=== PATIENT | female | born 1985 | race Caucasian/White ===

== ENCOUNTER 2017-05-11 06:56 | Emergency (ER) | payer MEDICAID ==
[2017-05-11 07:08] VITALS: BP 147/76
[2017-05-11] MEDS ORDERED: Sodium Chloride 0.9% 1,000 ML IV STA (07:21)
[2017-05-11] MEDS ORDERED: HYDROmorphone 1 MG/ML Syringe IVPUSH ONE (07:21)
[2017-05-11] MEDS ORDERED: Ondansetron 4 MG/2 ML SDV IVPUSH ONE (07:21)
--- NOTE | 2017-05-11 07:27 | EDM.PDOC ---
ED HPI GENERAL MEDICAL PROBLEM - General Chief Complaint: Abdominal Pain Stated Complaint: STOMACH PAIN IN THE MIDDLE Time Seen by Provider: 05/11/17 07:16 Source of Information: Reports: Patient, RN Notes Reviewed History Limitations: Reports: No Limitations - History of Present Illness INITIAL COMMENTS - FREE TEXT/NARRATIVE: 31-year-old female presents emergency department day complaint of abdominal pain , she states she had counted generalized abdominal pain yesterday now the pain has migrated down to the right lower quadrant she is nauseated she has not vomited she does eat chills at times does have burning with urination pain is constant. Past surgical history of and hernia repair Lower Abdomen Pain Score (Numeric/FACES): 10 - Related Data Allergies Allergy/AdvReac Type Severity Reaction Status Date / Time naproxen Allergy Intermediate Hives Verified 11/03/16 14:26 coconut oil Allergy Other Verified 11/03/16 14:26 Latex, Natural Rubber Allergy Hives Verified 11/03/16 14:26 tramadol Allergy Hives Verified 11/03/16 14:26 Home Meds: Home Meds Albuterol Sulfate [Proair Hfa] 2 puff INH Q4H PRN 03/11/14 [History] Acetaminophen [Tylenol] 2 tab PO Q4H 07/19/15 [History] Acetaminophen/Diphenhydramine [Tylenol Pm Ex-Strength Caplet] 1 each PO BEDTIME PRN 12/31/15 [History] Ibuprofen 400 mg PO Q4H PRN 07/15/16 [History] diphenhydrAMINE [Benadryl] 25 mg PO BEDTIME PRN 07/15/16 [History] Past Medical History HEENT History: Reports: Allergic Rhinitis, Impaired Vision Other HEENT History: tubes in ears as young child. 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: Reports: , Other (See Below) Other OB/BYN History: IUD Neurological History: Reports: Headaches, Chronic, Migraines Psychiatric History: Reports: Anxiety, Depression, Panic Attack Endocrine/Metabolic History: Reports: Obesity/BMI 30+ Dermatologic History: Reports: Other (See Below) Other Dermatologic History: hydrotendonitis - Infectious Disease History Infectious Disease History: Reports: Chicken Pox - Past Surgical History HEENT Surgical History: Reports: Myringotomy w Tube(s) GI Surgical History: Reports: Hernia Repair/Other Female Surgical History: Reports: Section Social & Family History - Family History Family Medical History: Noncontributory Cardiac: Reports: Hypertension Respiratory: Reports: Asthma Psychiatric: Reports: Anxiety, Depression Endocrine/Metabolic: Reports: Diabetes, Type I Oncologic: Reports: Breast, Liver - Tobacco Use Smoking Status *Q: Current Every Day Smoker Years of Tobacco use: 1 Packs/Tins Daily: 0.5 Used Tobacco, but Quit: Yes Month Tobacco Last Used: December Second Hand Smoke Exposure: No - Caffeine Use Caffeine Use: Reports: Soda, Tea - Alcohol Use Days Per Week of Alcohol Use: 0 - Recreational Drug Use Recreational Drug Use: No Drug Use in Last 12 Months: Yes Recreational Drug Type: Reports: Marijuana/Hashish Recreational Drug Use Frequency: Binges Recreational Drug Last Use: t-2 ED ROS GENERAL - Review of Systems Review Of Systems: See Below Constitutional: Reports: Chills. Denies: Fever HEENT: Reports: No Symptoms Respiratory: Reports: Shortness of Breath (With pain) Cardiovascular: Reports: No Symptoms GI/Abdominal: Reports: Abdominal Pain, Flatus, Nausea. Denies: Constipation, Diarrhea, Vomiting : Reports: Dysuria Musculoskeletal: Reports: No Symptoms Skin: Reports: No Symptoms Neurological: Reports: No Symptoms ED EXAM, GI/ABD - Physical Exam Exam: See Below Text/Narrative:: General: Female, in moderate discomfort secondary to pain, alert and oriented x3 HEENT: head is atraumatic normocephalic, eyes pupils equal round reactive to light, sclera clear no conjunctivitis appreciated. Ears tympanic membranes clear and patel landmarks and light reflex are present bilaterally canals are clear. Nose no septal deviation, nares are clear, no blood present. Mouth mucosa is moist and pink no erythema or exudate noted in soft palate, tongue is midline uvula is midline, dentition is intact. Neck: Supple no thyromegaly no tracheal deviation. Nodes: Cervical nodes subclavicular nodes nontender no palpable lymphadenopathy noted. Lungs: clear to auscultation bilaterally with symmetrical respirations, no adventitious noise appreciated. CV: Regular rate and rhythm S1 and S2 appreciated no murmurs rubs or gallops noted. Abdomen: Soft, obese, tender to palpation right lower quadrant, no palpable masses or organomegaly appreciated, no distention no guarding bowel sounds are present, psoas sign, obturator sign, heeltap sign all positive. Neuro: Cranial nerves II through XII grossly intact Skin: Warm and dry, intact Extremities: No lower extremity edema appreciated, pedal pulse is +2. Course - Vital Signs Last Recorded V/S: Last Vital Signs Temp 97.9 F 05/11/17 07:07 Pulse 69 05/11/17 07:07 Resp 16 05/11/17 07:07 BP 147/76 H 05/11/17 07:07 Pulse Ox 96 05/11/17 07:07 - Orders/Labs/Meds Orders: Active Orders 24 hr Category Date Time Status Peripheral IV Care [RC] . DIRECTED Care 05/11/17 07:23 Active Abdomen Pelvis w Cont [CT] Urgent Exams 05/11/17 07:21 Taken Iopamidol [Isovue-300 (61%)] Med 05/11/17 07:35 Active 150 ml IV . DIRECTED PRN Sodium Chloride 0.9% [Normal Saline] 100 ml Med 05/11/17 07:45 Active IV ASDIRECTED Sodium Chloride 0.9% [Saline Flush] Med 05/11/17 07:21 Active 10 ml FLUSH ASDIRECTED PRN ED Antiemetic Medication Reflex [OM.PC] Click to Edit Oth 05/11/17 07:21 Ordered ED Pain Medications Reflex [OM.PC] Click to Edit Oth 05/11/17 07:21 Ordered Peripheral IV Insertion Adult [OM.PC] Urgent Oth 05/11/17 07:21 Ordered Medication Orders Sodium Chloride (Normal Saline) 100 mls @ 3.5 mls/sec IV ASDIRECTED CHITRA Stop: 05/11/17 23:00 Last Admin: 05/11/17 08:01 Dose: 3.5 mls/sec Iopamidol (Isovue-300 (61%)) 150 ml IV . DIRECTED PRN PRN Reason: RADIOLOGY EXAM Stop: 05/12/17 07:36 Last Admin: 05/11/17 08:01 Dose: 150 ml Sodium Chloride (Saline Flush) 10 ml FLUSH ASDIRECTED PRN PRN Reason: Keep Vein Open Last Admin: 05/11/17 08:01 Dose: 10 ml Admin: 05/11/17 07:37 Dose: 10 ml Labs: Laboratory Tests 05/11/17 05/11/17 05/11/17 Range/Units 07:19 07:29 07:29 WBC 9.9 (4.5-11.0) K/uL RBC 4.51 (3.30-5.50) M/uL Hgb 14.0 (12.0-15.0) g/dL Hct 41.9 (36.0-48.0) % MCV 93 (80-98) fL MCH 31 (27-31) pg MCHC 33 (32-36) % Plt Count 247 (150-400) K/uL Neut % (Auto) 61 (36-66) % Lymph % (Auto) 28 (24-44) % [place] % (Auto) 9 H (2-6) % Eos % (Auto) 2 (2-4) % Baso % (Auto) 1 (0-1) % Sodium 138 L (140-148) mmol/L Potassium 4.2 (3.6-5.2) mmol/L Chloride 103 (100-108) mmol/L Carbon Dioxide 28 (21-32) mmol/L Anion Gap 11.2 (5.0-14.0) mmol/L BUN 9 (7-18) mg/dL Creatinine 0.8 (0.6-1.0) mg/dL Est Cr Clr Drug Dosing 99.73 mL/min Estimated GFR (MDRD) > 60 (>60) Glucose 101 (74-106) mg/dL Lactic Acid (0.4-2.0) mmol/L Calcium 8.8 (8.5-10.1) mg/dL Total Bilirubin 0.2 (0.2-1.0) mg/dL AST 17 (15-37) U/L ALT 26 (12-78) U/L Alkaline Phosphatase 44 L (46-116) U/L Total Protein 6.9 (6.4-8.2) g/dL Albumin 3.5 (3.4-5.0) g/dL Globulin 3.4 (2.3-3.5) g/dL Albumin/Globulin Ratio 1.0 L (1.2-2.2) Lipase 125 (73-393) U/L Urine Color Yellow Urine Appearance Cloudy Urine pH 5.0 (4.5-8.0) Ur Specific [place] 1.020 (1.008-1.030) Urine Protein Negative (NEGATIVE) mg/dL Urine Glucose (UA) Normal (NEGATIVE) mg/dL Urine Ketones Negative (NEGATIVE) mg/dL Urine Occult Blood Negative (NEGATIVE) Urine Nitrite Negative (NEGATIVE) Urine Bilirubin Negative (NEGATIVE) Urine Urobilinogen Normal (NORMAL) mg/dL Ur Leukocyte Esterase Negative (NEGATIVE) Urine RBC Not seen (0-5) Urine WBC 0-5 (0-5) Ur Epithelial Cells Many Amorphous Sediment Moderate Urine Bacteria Many Urine Mucus Many Urine Other See note Urine HCG, Qual 05/11/17 05/11/17 Range/Units 07:29 07:40 WBC (4.5-11.0) K/uL RBC (3.30-5.50) M/uL Hgb (12.0-15.0) g/dL Hct (36.0-48.0) % MCV (80-98) fL MCH (27-31) pg MCHC (32-36) % Plt Count (150-400) K/uL Neut % (Auto) (36-66) % Lymph % (Auto) (24-44) % [place] % (Auto) (2-6) % Eos % (Auto) (2-4) % Baso % (Auto) (0-1) % Sodium (140-148) mmol/L Potassium (3.6-5.2) mmol/L Chloride (100-108) mmol/L Carbon Dioxide (21-32) mmol/L Anion Gap (5.0-14.0) mmol/L BUN (7-18) mg/dL Creatinine (0.6-1.0) mg/dL Est Cr Clr Drug Dosing mL/min Estimated GFR (MDRD) (>60) Glucose (74-106) mg/dL Lactic Acid 1.0 (0.4-2.0) mmol/L Calcium (8.5-10.1) mg/dL Total Bilirubin (0.2-1.0) mg/dL AST (15-37) U/L ALT (12-78) U/L Alkaline Phosphatase (46-116) U/L Total Protein (6.4-8.2) g/dL Albumin (3.4-5.0) g/dL Globulin (2.3-3.5) g/dL Albumin/Globulin Ratio (1.2-2.2) Lipase (73-393) U/L Urine Color Urine Appearance Urine pH (4.5-8.0) Ur Specific [place] (1.008-1.030) Urine Protein (NEGATIVE) mg/dL Urine Glucose (UA) (NEGATIVE) mg/dL Urine Ketones (NEGATIVE) mg/dL Urine Occult Blood (NEGATIVE) Urine Nitrite (NEGATIVE) Urine Bilirubin (NEGATIVE) Urine Urobilinogen (NORMAL) mg/dL Ur Leukocyte Esterase (NEGATIVE) Urine RBC (0-5) Urine WBC (0-5) Ur Epithelial Cells Amorphous Sediment Urine Bacteria Urine Mucus Urine Other Urine HCG, Qual Negative Meds: Medications Generic Name Dose Route Start Last Admin Trade Name [place] PRN Reason Stop Dose Admin Sodium Chloride 100 mls @ 3.5 mls/sec 05/11/17 07:45 05/11/17 08:01 Normal Saline IV 05/11/17 23:00 3.5 mls/sec ASDIRECTED CHITRA Administration Iopamidol 150 ml 05/11/17 07:35 05/11/17 08:01 Isovue-300 (61%) IV 05/12/17 07:36 150 ml . DIRECTED PRN Administration RADIOLOGY EXAM Sodium Chloride 10 ml 05/11/17 07:21 05/11/17 08:01 Saline Flush FLUSH 10 ml ASDIRECTED PRN Administration Keep Vein Open Discontinued Medications Generic Name Dose Route Start Last Admin Trade Name Margret PRN Reason Stop Dose Admin Hydromorphone HCl 1 mg 05/11/17 07:21 05/11/17 07:38 Dilaudid IVPUSH 05/11/17 07:22 1 mg .ONETIME ONE Administration Sodium Chloride 1,000 mls @ 500 mls/hr 05/11/17 07:21 05/11/17 07:38 Normal Saline IV 05/11/17 09:20 500 mls/hr .BOLUS STA Administration Ondansetron HCl 4 mg 05/11/17 07:21 05/11/17 07:39 Zofran IVPUSH 05/11/17 07:22 4 mg ONETIME ONE Administration Sodium Chloride 10 ml 05/11/17 07:35 05/11/17 08:12 Normal Saline FLUSH 05/11/17 07:36 Not Given ONETIME ONE Departure - Departure Time of Disposition: 09:29 Disposition: Home, Self-Care 01 Condition: Good Clinical Impression: Abdominal pain Qualifiers: Abdominal location: right lower quadrant Qualified Code(s): R10.31 - Right lower quadrant pain - Discharge Information Forms: ED Department Discharge Additional Instructions: Use ibuprofen for baseline pain control, use hydrocodone for breakthrough pain, use Zofran as needed for nausea and vomiting symptoms. Please followup with your primary care provider in 2-3 days if not better, please call return to the emergency department with worsening of symptoms. - My Orders Last 24 Hours: My Active Orders 05/11/17 07:21 Abdomen Pelvis w Cont [CT] Urgent Sodium Chloride 0.9% [Saline Flush] 10 ml FLUSH ASDIRECTED PRN ED Antiemetic Medication Reflex [OM.PC] Click to Edit ED Pain Medications Reflex [OM.PC] Click to Edit Peripheral IV Insertion Adult [OM.PC] Urgent 05/11/17 07:23 Peripheral IV Care [RC] . DIRECTED 05/11/17 07:35 Iopamidol [Isovue-300 (61%)] 150 ml IV . DIRECTED PRN 05/11/17 07:45 Sodium Chloride 0.9% [Normal Saline] 100 ml IV ASDIRECTED - Assessment/Plan Last 24 Hours: My Active Orders 05/11/17 07:21 Abdomen Pelvis w Cont [CT] Urgent Sodium Chloride 0.9% [Saline Flush] 10 ml FLUSH ASDIRECTED PRN ED Antiemetic Medication Reflex [OM.PC] Click to Edit ED Pain Medications Reflex [OM.PC] Click to Edit Peripheral IV Insertion Adult [OM.PC] Urgent 05/11/17 07:23 Peripheral IV Care [RC] . DIRECTED 05/11/17 07:35 Iopamidol [Isovue-300 (61%)] 150 ml IV . DIRECTED PRN 05/11/17 07:45 Sodium Chloride 0.9% [Normal Saline] 100 ml IV ASDIRECTED Plan: Assessment Acuity = acute Site and laterality = abdominal pain right lower quadrant Etiology = unclear etiology Manifestations = nausea Location of injury = home Lab values = CBC within normal limits sodium low at 138.6 consistent with hyponatremia, urinalysis unremarkable CT scan shows no acute abnormalities of the abdomen or pelvis identified Plan I did review lab work CT scan results with her she had excellent relief from the Dilaudid and Zofran provided should be discharged home with for hydrocodone and Zofran plan is to follow-up with primary care in the next 2-3 days for reevaluation Patient was in agreement with the plan all questions were answered, they were instructed to return to the emergency department or call for worsening symptoms. This note was dictated using [employer] voice recognition software please call with any questions.
[2017-05-11] MEDS ORDERED: Iopamidol 612 MG/ML 150 ML Bottle IV PRN (07:35)
[2017-05-11] MEDS ORDERED: Sodium Chloride 0.9% 10 ML SDV FLUSH ONE (07:35)
[2017-05-11] MEDS: Sodium Chloride 0.9% 10 ML Syringe FLUSH PRN ×2 (07:37→08:01)
[2017-05-11] MEDS ORDERED: Sodium Chloride 0.9% 100 ML IV SCH (07:45)
== END 2017-05-11 09:38 | disposition home or self-care (01) ==
LOC: JP.ED 06:56
DX: R10.31 Right lower quadrant pain (principal); F17.210 Nicotine dependence, cigarettes, uncomplicated; J45.909 Unspecified asthma, uncomplicated; E66.9 Obesity, unspecified; Z96.22 Myringotomy tube(s) status; Z91.040 Latex allergy status; Z88.8 Allergy status to other drugs, medicaments and biological substances; Z91.018 Allergy to other foods; Z88.5 Allergy status to narcotic agent
CPT/HCPCS: 36415; 74177; 80053; 81001; 81025; 83605; 83690; 85025; 99284; J1170; J2405; J7030; J7040; J7050

== ENCOUNTER 2017-06-25 22:18 | Emergency (ER) | payer MEDICAID ==
[2017-06-26] MEDS ORDERED: Sodium Chloride 0.9% 10 ML Syringe FLUSH PRN ×2 (00:23→00:52)
[2017-06-26] MEDS ORDERED: Iopamidol 612 MG/ML 150 ML Bottle IV PRN (00:52)
[2017-06-26] MEDS ORDERED: Magnesium Citrate Solution 296 ML Bottle PO ONE (02:10)
--- NOTE | 2017-06-26 02:14 | EDM.PDOC ---
ED HPI GENERAL MEDICAL PROBLEM - General Chief Complaint: Abdominal Pain Stated Complaint: R SIDE ABDOMINAL PAIN Time Seen by Provider: 06/26/17 00:13 Source of Information: Reports: Patient History Limitations: Reports: No Limitations - History of Present Illness INITIAL COMMENTS - FREE TEXT/NARRATIVE: This patient complains of a sharp right sided and right lower quadrant abdominal pain for 2 days. Pain is increased with movement such as walking or laying on her right side. It goes away if she lays on her left side. She's had diarrhea off and on for 2 days as well as vomiting for 2 days. She denies any fever. No chance of . Right Lower Abdomen Pain Score (Numeric/FACES): 10 - Related Data Allergies Allergy/AdvReac Type Severity Reaction Status Date / Time naproxen Allergy Intermediate Hives Verified 11/03/16 14:26 coconut oil Allergy Other Verified 11/03/16 14:26 Latex, Natural Rubber Allergy Hives Verified 11/03/16 14:26 tramadol Allergy Hives Verified 11/03/16 14:26 Home Meds: Home Meds Albuterol Sulfate [Proair Hfa] 2 puff INH Q4H PRN 03/11/14 [History] Acetaminophen [Tylenol] 2 tab PO Q4H 07/19/15 [History] Acetaminophen/Diphenhydramine [Tylenol Pm Ex-Strength Caplet] 1 each PO BEDTIME PRN 12/31/15 [History] Ibuprofen 400 mg PO Q4H PRN 07/15/16 [History] diphenhydrAMINE [Benadryl] 25 mg PO BEDTIME PRN 07/15/16 [History] Past Medical History HEENT History: Reports: Allergic Rhinitis, Impaired Vision Other HEENT History: tubes in ears as young child. 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: , Other (See Below) Other OB/BYN History: IUD Neurological History: Reports: Headaches, Chronic, Migraines Psychiatric History: Reports: Anxiety, Depression, Panic Attack Endocrine/Metabolic History: Reports: Obesity/BMI 30+ Dermatologic History: Reports: Other (See Below) Other Dermatologic History: hydrotendonitis - Infectious Disease History Infectious Disease History: Reports: Chicken Pox - Past Surgical History HEENT Surgical History: Reports: Myringotomy w Tube(s) GI Surgical History: Reports: Hernia Repair/Other Female Surgical History: Reports: Section Social & Family History - Family History Family Medical History: Noncontributory Cardiac: Reports: Hypertension Respiratory: Reports: Asthma Psychiatric: Reports: Anxiety, Depression Endocrine/Metabolic: Reports: Diabetes, Type I Oncologic: Reports: Breast, Liver - Tobacco Use Smoking Status *Q: Current Some Day Smoker Years of Tobacco use: 12 Packs/Tins Daily: 0.5 Used Tobacco, but Quit: Yes Month Tobacco Last Used: December Second Hand Smoke Exposure: No - Caffeine Use Caffeine Use: Reports: Soda - Alcohol Use Days Per Week of Alcohol Use: 0 - Recreational Drug Use Recreational Drug Use: No Drug Use in Last 12 Months: Yes Recreational Drug Type: Reports: Marijuana/Hashish Recreational Drug Use Frequency: Binges Recreational Drug Last Use: t-2 ED ROS GENERAL - Review of Systems Review Of Systems: ROS reveals no pertinent complaints other than HPI. ED EXAM, GI/ABD - Physical Exam Exam: See Below Exam Limited By: No Limitations General Appearance: Alert, Mild Distress, Obese Eyes: Bilateral: Normal Appearance Throat/Mouth: Normal Inspection Head: Atraumatic Neck: Normal Inspection Respiratory/Chest: Lungs Clear Cardiovascular: Regular Rate, Rhythm GI/Abdominal Exam: Soft, Other (exam is limited by obesity. Some vague suggestion of a stool mass on the right side) Back Exam: Normal Inspection Extremities: Normal Inspection Neurological: Alert, Oriented Skin Exam: Warm, Dry Course - Vital Signs Last Recorded V/S: Last Vital Signs Temp 36.4 C 06/25/17 23:10 Pulse 78 06/25/17 23:10 Resp 20 06/25/17 23:10 BP 147/80 H 06/26/17 01:30 Pulse Ox 100 06/25/17 23:10 - Orders/Labs/Meds Orders: Active Orders 24 hr Category Date Time Status Abdomen Pelvis w Cont [CT] Stat Exams 06/26/17 00:23 Taken Saline Lock Insert [OM.PC] Urgent Oth 06/26/17 00:22 Ordered Labs: Laboratory Tests 06/26/17 06/26/17 06/26/17 Range/Units 00:30 00:30 00:30 WBC 8.4 (4.5-11.0) K/uL RBC 4.03 (3.30-5.50) M/uL Hgb 12.8 (12.0-15.0) g/dL Hct 37.7 (36.0-48.0) % MCV 94 (80-98) fL MCH 32 H (27-31) pg MCHC 34 (32-36) % Plt Count 240 (150-400) K/uL Neut % (Auto) 63 (36-66) % Lymph % (Auto) 28 (24-44) % [place] % (Auto) 8 H (2-6) % Eos % (Auto) 2 (2-4) % Baso % (Auto) 0 (0-1) % Sodium 142 (140-148) mmol/L Potassium 3.7 (3.6-5.2) mmol/L Chloride 107 (100-108) mmol/L Carbon Dioxide 29 (21-32) mmol/L Anion Gap 5.6 (5.0-14.0) mmol/L BUN 9 (7-18) mg/dL Creatinine 0.9 (0.6-1.0) mg/dL Est Cr Clr Drug Dosing 84.79 mL/min Estimated GFR (MDRD) > 60 (>60) Glucose 106 (74-106) mg/dL Calcium 8.1 L (8.5-10.1) mg/dL Total Bilirubin 0.2 (0.2-1.0) mg/dL AST 24 (15-37) U/L ALT 44 (12-78) U/L Alkaline Phosphatase 46 (46-116) U/L Total Protein 7.1 (6.4-8.2) g/dL Albumin 3.3 L (3.4-5.0) g/dL Globulin 3.8 H (2.3-3.5) g/dL Albumin/Globulin Ratio 0.9 L (1.2-2.2) Urine Color Urine Appearance Urine pH (4.5-8.0) Ur Specific [place] (1.008-1.030) Urine Protein (NEGATIVE) mg/dL Urine Glucose (UA) (NEGATIVE) mg/dL Urine Ketones (NEGATIVE) mg/dL Urine Occult Blood (NEGATIVE) Urine Nitrite (NEGATIVE) Urine Bilirubin (NEGATIVE) Urine Urobilinogen (NORMAL) mg/dL Ur Leukocyte Esterase (NEGATIVE) Urine RBC (0-5) Urine WBC (0-5) Ur Epithelial Cells Amorphous Sediment Urine Bacteria Urine Mucus Urine HCG, Qual Negative 06/26/17 Range/Units 00:30 WBC (4.5-11.0) K/uL RBC (3.30-5.50) M/uL Hgb (12.0-15.0) g/dL Hct (36.0-48.0) % MCV (80-98) fL MCH (27-31) pg MCHC (32-36) % Plt Count (150-400) K/uL Neut % (Auto) (36-66) % Lymph % (Auto) (24-44) % [place] % (Auto) (2-6) % Eos % (Auto) (2-4) % Baso % (Auto) (0-1) % Sodium (140-148) mmol/L Potassium (3.6-5.2) mmol/L Chloride (100-108) mmol/L Carbon Dioxide (21-32) mmol/L Anion Gap (5.0-14.0) mmol/L BUN (7-18) mg/dL Creatinine (0.6-1.0) mg/dL Est Cr Clr Drug Dosing mL/min Estimated GFR (MDRD) (>60) Glucose (74-106) mg/dL Calcium (8.5-10.1) mg/dL Total Bilirubin (0.2-1.0) mg/dL AST (15-37) U/L ALT (12-78) U/L Alkaline Phosphatase (46-116) U/L Total Protein (6.4-8.2) g/dL Albumin (3.4-5.0) g/dL Globulin (2.3-3.5) g/dL Albumin/Globulin Ratio (1.2-2.2) Urine Color Yellow Urine Appearance Clear Urine pH 6.0 (4.5-8.0) Ur Specific [place] 1.015 (1.008-1.030) Urine Protein Negative (NEGATIVE) mg/dL Urine Glucose (UA) Normal (NEGATIVE) mg/dL Urine Ketones Negative (NEGATIVE) mg/dL Urine Occult Blood Negative (NEGATIVE) Urine Nitrite Negative (NEGATIVE) Urine Bilirubin Negative (NEGATIVE) Urine Urobilinogen Normal (NORMAL) mg/dL Ur Leukocyte Esterase Negative (NEGATIVE) Urine RBC 0-5 (0-5) Urine WBC 0-5 (0-5) Ur Epithelial Cells Few Amorphous Sediment Not seen Urine Bacteria Not seen Urine Mucus Not seen Urine HCG, Qual Meds: Medications Discontinued Medications Generic Name Dose Route Start Last Admin Trade Name Margret PRN Reason Stop Dose Admin Sodium Chloride 85 mls @ 3.5 mls/sec 06/26/17 01:00 Normal Saline IV ASDIRECTED CHITRA Iopamidol 150 ml 06/26/17 00:52 06/26/17 01:11 Isovue-300 (61%) IV 06/27/17 00:53 150 ml . DIRECTED PRN Administration RADIOLOGY EXAM Magnesium Citrate 296 ml 06/26/17 02:10 06/26/17 02:24 Citrate Of Magnesia PO 06/26/17 02:11 296 ml ONETIME ONE Administration Sodium Chloride 10 ml 06/26/17 00:23 06/26/17 00:54 Saline Flush FLUSH 10 ml ASDIRECTED PRN Administration Keep Vein Open Sodium Chloride 10 ml 06/26/17 00:52 06/26/17 01:11 Saline Flush FLUSH 10 ml ONETIME PRN Administration per radiology protocol - Re-Assessments/Exams Free Text/Narrative Re-Assessment/Exam: 06/26/17 07: 07:25 Some increased stool in the ascending colon but nothing else that looks acute except a round low-density structure in the right adnexa which looks to me like an ovarian cyst. The radiologist characterized it as undefined. Patient was informed that she needs to talk with her doctor about that. I told her it's probably of ovarian cyst with the radiologist wasn't sure one way or the other so that something she needs to follow-up it's not in the written discharge instructions with that was discussed verbally with the patient. Departure - Departure Time of Disposition: 02:11 Disposition: Home, Self-Care 01 Condition: Fair Clinical Impression: Abdominal pain - Discharge Information Instructions: Constipation, Adult, [id number], Abdominal Pain, Adult, Easy-to -Read, Ovarian Cyst, [id number] Referrals: Rhoda Ellsworth CNM [Primary Care Provider] - Forms: ED Department Discharge Additional Instructions: The CT scan shows a large amount of stool in your colon on the right side. This is the beginning part of the colon where the small intestine empties into the large intestine. Frequently people get a lot of stool backed up in that area and it can cause sharp stabbing pains that is especially worse with movement and walking and so forth. This is actually a form of constipation and is seen even when the rest of the colon has been emptied by having bowel movements. This stool can be eliminated by using a laxative such as milk of magnesia or magnesium citrate which you received in the ER area after taking magnesium citrate be sure you drink several glasses of water. Typically your bowels will clear out within 12-24 hours. A high fiber diet can prevent reaccumulation of stool in the future. - My Orders Last 24 Hours: My Active Orders 06/26/17 00:22 Saline Lock Insert [OM.PC] Urgent 06/26/17 00:23 Abdomen Pelvis w Cont [CT] Stat - Assessment/Plan Last 24 Hours: My Active Orders 06/26/17 00:22 Saline Lock Insert [OM.PC] Urgent 06/26/17 00:23 Abdomen Pelvis w Cont [CT] Stat
[2017-06-26 02:17] VITALS: BP 147/80
== END 2017-06-26 02:24 | disposition home or self-care (01) ==
LOC: JP.ED 22:18
DX: R10.31 Right lower quadrant pain (principal); J45.909 Unspecified asthma, uncomplicated; F41.0 Panic disorder [episodic paroxysmal anxiety]; F32.9 Major depressive disorder, single episode, unspecified; F17.210 Nicotine dependence, cigarettes, uncomplicated; E66.9 Obesity, unspecified; Z68.39 Body mass index [BMI] 39.0-39.9, adult; Z79.899 Other long term (current) drug therapy; Z88.5 Allergy status to narcotic agent; Z88.8 Allergy status to other drugs, medicaments and biological substances; Z91.018 Allergy to other foods; Z91.040 Latex allergy status; Z96.22 Myringotomy tube(s) status; Z98.890 Other specified postprocedural states
CPT/HCPCS: 36415; 74177; 80053; 81001; 81025; 85025; 99284; A9270; J7050

== ENCOUNTER 2017-08-22 12:56 | Emergency (ER) | payer MEDICAID ==
[2017-08-22 13:11] VITALS: BP 161/86
--- NOTE | 2017-08-22 13:47 | EDM.PDOC ---
ED HPI GENERAL MEDICAL PROBLEM - General Chief Complaint: Eye Problems Stated Complaint: POSSIBLE PINK EYE BILAT Time Seen by Provider: 08/22/17 13:40 Source of Information: Reports: Patient, RN Notes Reviewed History Limitations: Reports: No Limitations - History of Present Illness INITIAL COMMENTS - FREE TEXT/NARRATIVE: 32-year-old female presents emergency department day complaint of a red eye, she was exposed to pinkeye earlier in the week with her child is predominantly in the right eye she was sent home from work and then itchiness and some blurriness no difficulty with vision no pain - Related Data Allergies Allergy/AdvReac Type Severity Reaction Status Date / Time naproxen Allergy Intermediate Hives Verified 11/03/16 14:26 coconut oil Allergy Other Verified 11/03/16 14:26 Latex, Natural Rubber Allergy Hives Verified 11/03/16 14:26 tramadol Allergy Hives Verified 11/03/16 14:26 Home Meds: Home Meds Albuterol Sulfate [Proair Hfa] 2 puff INH Q4H PRN 03/11/14 [History] Acetaminophen [Tylenol] 2 tab PO Q4H 07/19/15 [History] Acetaminophen/Diphenhydramine [Tylenol Pm Ex-Strength Caplet] 1 each PO BEDTIME PRN 12/31/15 [History] Ibuprofen 400 mg PO Q4H PRN 07/15/16 [History] diphenhydrAMINE [Benadryl] 25 mg PO BEDTIME PRN 07/15/16 [History] Past Medical History HEENT History: Reports: Allergic Rhinitis, Impaired Vision Other HEENT History: tubes in ears as young child. 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: , Other (See Below) Other OB/BYN History: IUD Neurological History: Reports: Headaches, Chronic, Migraines Psychiatric History: Reports: Anxiety, Depression, Panic Attack Endocrine/Metabolic History: Reports: Obesity/BMI 30+ Dermatologic History: Reports: Other (See Below) Other Dermatologic History: hydrotendonitis - Infectious Disease History Infectious Disease History: Reports: Chicken Pox - Past Surgical History HEENT Surgical History: Reports: Myringotomy w Tube(s) GI Surgical History: Reports: Hernia Repair/Other Female Surgical History: Reports: Section Social & Family History - Family History Family Medical History: Noncontributory Cardiac: Reports: Hypertension Respiratory: Reports: Asthma Psychiatric: Reports: Anxiety, Depression Endocrine/Metabolic: Reports: Diabetes, Type I Oncologic: Reports: Breast, Liver - Tobacco Use Smoking Status *Q: Never Smoker Years of Tobacco use: 12 Packs/Tins Daily: 0.5 Used Tobacco, but Quit: Yes Month Tobacco Last Used: December Second Hand Smoke Exposure: No - Caffeine Use Caffeine Use: Reports: None - Alcohol Use Days Per Week of Alcohol Use: 0 - Recreational Drug Use Recreational Drug Use: No Drug Use in Last 12 Months: Yes Recreational Drug Type: Reports: Marijuana/Hashish Recreational Drug Use Frequency: Binges Recreational Drug Last Use: t-2 ED ROS GENERAL - Review of Systems Review Of Systems: See Below Constitutional: Reports: No Symptoms HEENT: Reports: Eye Discharge. Denies: Eye Pain Respiratory: Reports: No Symptoms Cardiovascular: Reports: No Symptoms ED EXAM GENERAL W FULL EYE - Physical Exam Exam: See Below Exam Limited By: No Limitations General Appearance: Alert, WD/WN, No Apparent Distress Eye Exam: Right Eye: Conjunctival Injection, Left Eye: Normal Inspection Eyelids: Bilateral: Normal Appearance Conjunctiva & Sclera: Right: Injected, Left: Normal Appearance Cornea Exam: Bilateral: Normal Appearance Extraocular Movements: Bilateral: Intact Pupils: Normal Accommodation Pupillary Size: Bilateral: 5 mm Pupillary Reaction: Bilateral: Brisk Neck: Normal Inspection, Supple, Non-Tender, Full Range of Motion Course - Vital Signs Last Recorded V/S: Last Vital Signs Temp 96.6 F 08/22/17 13:10 Pulse 98 08/22/17 13:10 Resp 16 08/22/17 13:10 BP 161/86 H 08/22/17 13:10 Pulse Ox 95 08/22/17 13:10 Departure - Departure Time of Disposition: 13:46 Disposition: Home, Self-Care 01 Condition: Good Clinical Impression: Conjunctivitis Qualifiers: Conjunctivitis type: acute Acute conjunctivitis type: unspecified Laterality: right Qualified Code(s): H10.31 - Unspecified acute conjunctivitis, right eye - Discharge Information Referrals: Rhoda Ellsworth CNM [Primary Care Provider] - Additional Instructions: Take full course of antibiotics, follow up with eye care provider in 5-7 days if no improvement, call return to the emergency department for worsening of symptoms - Assessment/Plan Plan: Assessment Acuity = acute Site and laterality = right conjunctivitis Etiology = probable viral cause Manifestations = none Location of injury = Home Lab values = none Plan Prescription written for gentamicin 1-2 drops right eye until clear follow-up with eye care provider in 5-7 days if no improvement Patient was in agreement with the plan all questions were answered, they were instructed to return to the emergency department or call for worsening symptoms. This note was dictated using [employer] voice recognition software please call with any questions.
== END 2017-08-22 13:55 | disposition home or self-care (01) ==
LOC: JP.ED 12:56
DX: H10.31 Unspecified acute conjunctivitis, right eye (principal); J45.909 Unspecified asthma, uncomplicated; F41.0 Panic disorder [episodic paroxysmal anxiety]; F32.9 Major depressive disorder, single episode, unspecified; E66.9 Obesity, unspecified; Z96.22 Myringotomy tube(s) status; Z98.890 Other specified postprocedural states; Z87.891 Personal history of nicotine dependence; Z88.5 Allergy status to narcotic agent; Z88.8 Allergy status to other drugs, medicaments and biological substances; Z91.040 Latex allergy status; Z91.018 Allergy to other foods; Z68.41 Body mass index [BMI] 40.0-44.9, adult
CPT/HCPCS: 99283

== ENCOUNTER 2017-10-12 12:04 | Emergency (ER) | payer MEDICAID ==
[2017-10-12 12:20] VITALS: BP 150/94
--- NOTE | 2017-10-12 13:39 | EDM.PDOC ---
ED HPI GENERAL MEDICAL PROBLEM - General Chief Complaint: Skin Complaint Stated Complaint: BOIL, LEFT SIDE, INSIDE CREASE THIGH Time Seen by Provider: 10/12/17 13:20 Source of Information: Reports: Patient History Limitations: Reports: No Limitations - History of Present Illness INITIAL COMMENTS - FREE TEXT/NARRATIVE: 32 yo female with a pHx of a L groin boil that was drained by Dr. 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 Does not have a family doctor so came to the ER. No fever. No drainage. Has too much pain to go to work. Onset: Gradual Onset Date: 10/10/17 Duration: Day(s):, Getting Worse Location: Reports: Other (L groin) Quality: Reports: Ache Severity: Moderate Improves with: Reports: Rest Worsens with: Reports: Movement Context: Reports: Other (Previous boil to same area. ) Associated Symptoms: Reports: No Other Symptoms Treatments MACHINE CRATER: Reports: Other (see below) (none) Other Treatments MACHINE CRATER: hot packs Left Inner Groin Pain Score (Numeric/FACES): 3 - Related Data Allergies Allergy/AdvReac Type Severity Reaction Status Date / Time naproxen Allergy Intermediate Hives Verified 10/12/17 12:31 coconut oil Allergy Other Verified 10/12/17 12:31 Latex, Natural Rubber Allergy Hives Verified 10/12/17 12:31 tramadol Allergy Hives Verified 10/12/17 12:31 Home Meds: Home Meds Albuterol Sulfate [Proair Hfa] 2 puff INH Q4H PRN 03/11/14 [History] Acetaminophen [Tylenol] 2 tab PO Q4H 07/19/15 [History] Acetaminophen/Diphenhydramine [Tylenol Pm Ex-Strength Caplet] 1 each PO BEDTIME PRN 12/31/15 [History] Ibuprofen 400 mg PO Q4H PRN 07/15/16 [History] diphenhydrAMINE [Benadryl] 25 mg PO BEDTIME PRN 07/15/16 [History] Acetaminophen/HYDROcodone [[place] 325-5 MG] 1 - 2 tab PO Q6H PRN #15 tab [Rx] Cephalexin [IJD: Cephalexin] 500 mg PO Q6H #30 cap 10/12/17 [Rx] Fluticasone Propionate [Flonase] 1 spray INGRID DAILY 10/12/17 [History] Past Medical History HEENT History: Reports: Allergic Rhinitis, Impaired Vision Other HEENT History: tubes in ears as young child. 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: , Other (See Below) Other OB/BYN History: IUD Neurological History: Reports: Headaches, Chronic, Migraines Psychiatric History: Reports: Anxiety, Depression, Panic Attack Endocrine/Metabolic History: Reports: Obesity/BMI 30+ Dermatologic History: Reports: Other (See Below) Other Dermatologic History: hydrotendonitis - Infectious Disease History Infectious Disease History: Reports: Chicken Pox - Past Surgical History HEENT Surgical History: Reports: Myringotomy w Tube(s) GI Surgical History: Reports: Hernia Repair/Other Female Surgical History: Reports: Section Social & Family History - Family History Family Medical History: Noncontributory Cardiac: Reports: Hypertension Respiratory: Reports: Asthma Psychiatric: Reports: Anxiety, Depression Endocrine/Metabolic: Reports: Diabetes, Type I Oncologic: Reports: Breast, Liver - Tobacco Use Smoking Status *Q: Never Smoker Years of Tobacco use: 12 Packs/Tins Daily: 0.5 Used Tobacco, but Quit: Yes Month Tobacco Last Used: December Second Hand Smoke Exposure: No - Caffeine Use Caffeine Use: Reports: Soda - Alcohol Use Days Per Week of Alcohol Use: 0 - Recreational Drug Use Recreational Drug Use: No Drug Use in Last 12 Months: Yes Recreational Drug Type: Reports: Marijuana/Hashish Recreational Drug Use Frequency: Binges Recreational Drug Last Use: t-2 ED ROS GENERAL - Review of Systems Review Of Systems: See Below Constitutional: Reports: No Symptoms Skin: Reports: Erythema, Lumps (boil L groin) Neurological: Reports: No Symptoms ED EXAM, SKIN/RASH Exam: See Below Exam Limited By: No Limitations General Appearance: Alert, WD/WN, No Apparent Distress, Obese Neurological: Alert, Oriented, CN II-XII Intact, Normal Cognition, No Motor/ Sensory Deficits Psychiatric: Normal Affect, Normal Mood Skin: Warm, Dry, Intact, Erythema, Other (1.6 cm non-fluctuant boil in the R groin. Old surgical scar present. No drainage. ) Course - Vital Signs Last Recorded V/S: Last Vital Signs Temp 36.4 C 10/12/17 12:23 Pulse 95 10/12/17 12:23 Resp 18 10/12/17 12:23 BP 150/94 H 10/12/17 12:23 Pulse Ox 95 10/12/17 12:23 Departure - Departure Time of Disposition: 13:40 Disposition: Home, Self-Care 01 Condition: Good Clinical Impression: Boil of groin - Discharge Information Prescriptions: Acetaminophen/HYDROcodone [[place] 325-5 MG] 1 - 2 tab PO Q6H PRN #15 tab PRN Reason: Pain Cephalexin [IJD: Cephalexin] 500 mg PO Q6H #30 cap Referrals: Rhoda Ellsworth CNM [Primary Care Provider] - Forms: ED Department Discharge, ED Return to Work/School Form
== END 2017-10-12 13:59 | disposition home or self-care (01) ==
LOC: JP.ED 12:04
DX: L02.224 Furuncle of groin (principal); J45.909 Unspecified asthma, uncomplicated; Z87.891 Personal history of nicotine dependence; Z88.5 Allergy status to narcotic agent; Z88.8 Allergy status to other drugs, medicaments and biological substances; Z91.040 Latex allergy status; Z91.018 Allergy to other foods
CPT/HCPCS: 99283

== ENCOUNTER → 2017-10-15 | Day surgery (SDC) | payer MEDICAID ==
[~2017-10-15] MED LIST: Acetaminophen/HYDROcodone 325-5 MG Tab PO ONE; Bupivacaine 0.5% 50 ML MDV ONE; Dextrose 5%-Lactated Ringers 1,000 ML IV SCH; Ketoconazole 2% Crm 30 GM Tube TOP ONE; Lidocaine 1% 20 ML MDV ONE; Lidocaine 1% with EPINEPHrine 1:100,000 50 ML MDV ONE; Midazolam 1 MG/ML 2 ML SDV ONE; Propofol 200 MG/20 ML SDV ONE; cefOXitin 2 GM in Sodium Chloride 0.9% 50 ML IV ONE; fentaNYL 100 MCG/2 ML SDV ONE
[2017-10-15 14:43] VITALS: BP 134/91
--- NOTE | 2017-10-19 11:23 | OR ---
DATE OF PROCEDURE: 10/15/2017 PREOPERATIVE DIAGNOSIS: Acutely infected hidradenitis suppurativa, left perineal area. POSTOPERATIVE DIAGNOSIS: Acutely infected hidradenitis suppurativa, left perineal area. OPERATIVE PROCEDURE: Excision of area of acutely infected hidradenitis suppurativa, left perineal area ([id number]). ANESTHESIA: Local plus IV sedation. INDICATION FOR PROCEDURE: This 32-year-old presented with some recurrent hidradenitis suppurativa with a focally infected area in the left perineal area. The plan was to proceed with excision of this. This is actively infected and also is in a field of quite a bit in the way of cutaneous fungal associated inflammation. Given this, the plan will be to proceed with excision of this area without closure to allow secondary closure of the wound. Potential risks including bleeding and infection were reviewed, and the patient wishes to proceed. DETAILS OF PROCEDURE: The patient was taken to the operating room, and after IV sedation was administered, she was placed in a [id number] position. The left perineal area was then prepped and draped, and the area of concern was anesthetized with 1% lidocaine. An elliptical incision measuring around 6 cm was then made, incorporating the area of active infection. This was carried down through the skin and subcutaneous tissue with care taken to maintain a plane of dissection outside of the hidradenitis. This specimen was delivered from the field, and off the field, it was partially opened and cultures obtained. Hemostasis was then obtained with electrocautery, and at that point, no further problems were noted. The wound was packed with iodoform gauze, and the patient was taken to the recovery room in a satisfactory condition. Of note, ketoconazole cream was placed bilaterally in the area of the peroneal and groin regions for treatment of the fungal overgrowth in those locations. Ricky Beckham MD /[id number]
== END ==
LOC: JP.SDS 09:55
PROVIDERS: ATTEND Surgery
DX: L72.0 Epidermal cyst (principal); L98.411 Non-pressure chronic ulcer of buttock limited to breakdown of skin; L73.2 Hidradenitis suppurativa; J45.909 Unspecified asthma, uncomplicated; K21.9 Gastro-esophageal reflux disease without esophagitis; E66.9 Obesity, unspecified; Z88.8 Allergy status to other drugs, medicaments and biological substances; Z91.018 Allergy to other foods; Z91.040 Latex allergy status; Z68.30 Body mass index [BMI] 30.0-30.9, adult
CPT/HCPCS: 11470; 87070; 87075; 87077; 87205; 88304; A9270; J0694; J2250; J2704; J3010; J7042; J7050

== ENCOUNTER 2017-10-30 08:01 | Day surgery (SDC) | payer MEDICAID ==
[~2017-10-30 08:01] MED LIST changes: -Acetaminophen/HYDROcodone 325-5 MG Tab PO ONE; -Dextrose 5%-Lactated Ringers 1,000 ML IV SCH; -Ketoconazole 2% Crm 30 GM Tube TOP ONE; -Lidocaine 1% 20 ML MDV ONE; -Midazolam 1 MG/ML 2 ML SDV ONE; -Propofol 200 MG/20 ML SDV ONE; -cefOXitin 2 GM in Sodium Chloride 0.9% 50 ML IV ONE; -fentaNYL 100 MCG/2 ML SDV ONE
[2017-10-30] MEDS ORDERED: Meropenem 500 MG SDV ONE (08:42)
[2017-10-30] MEDS ORDERED: Dextrose 5%-Lactated Ringers 1,000 ML IV SCH (08:45)
[2017-10-30] MEDS ORDERED: Meropenem 500 MG in Sodium Chloride 0.9% 50 ML IV ONE (09:15)
[2017-10-30] MEDS: Meropenem 500 MG in Premix Bag 1 BAG IV ONE ×2 (09:31)
[2017-10-30] MEDS ORDERED: fentaNYL 100 MCG/2 ML SDV ONE (09:31)
[2017-10-30] MEDS ORDERED: Propofol 200 MG/20 ML SDV ONE (09:31)
[2017-10-30] MEDS ORDERED: Midazolam 1 MG/ML 2 ML SDV ONE (09:31)
[2017-10-30] MEDS ORDERED: Bacitracin Oint 1 GM U/D Packet ONE (09:53)
[2017-10-30 10:45] VITALS: BP 129/80
[2017-10-30] MEDS ORDERED: HYDROmorphone 1 MG/ML Syringe IVPUSH ONE (10:50)
--- NOTE | 2017-11-02 09:06 | OR ---
DATE OF PROCEDURE: 10/30/2017 PREOPERATIVE DIAGNOSIS: Hidradenitis suppurativa, right axilla. POSTOPERATIVE DIAGNOSIS: Hidradenitis suppurativa, right axilla. PROCEDURE: Excision of hidradenitis suppurativa, right axilla (14937). ANESTHESIA: Local plus IV sedation. INDICATION FOR PROCEDURE: This is a 32-year-old presenting with a focal recurrence of hidradenitis suppurativa in the right axilla. This was fairly red and inflamed, but in an area that we should be able to get enough margin to most likely close this primarily. Potential risks of the procedure including bleeding, infection, and need to open the wound were reviewed, and the patient wishes to proceed. DETAILS OF PROCEDURE: The patient was taken to the operating room, placed in a supine position. IV sedation was administered, after which the anterior axillary area on the right side was prepped and draped. The area of concern was anesthetized with 1% lidocaine mixed with Marcaine. The area of the hidradenitis measured 2.3 cm and an elliptical incision measuring 5 cm was made on the lesion, maintaining a plane of relatively noninflamed skin and subcutaneous tissue and well outside of the area of active hidradenitis per se. Upon removal of the lesion, the incision was closed with 2 layers of 4-0 Vicryl stitch deep and then a 5-0 Prolene skin stitch. The wound had been irrigated with meropenem-containing saline solution as well. The patient was taken to the recovery room in satisfactory condition. There were no evident complications. Ricky Beckham MD /[id number]
== END 2017-10-30 11:10 | disposition home or self-care (01) ==
LOC: JP.SDS 08:01
PROVIDERS: ATTEND Surgery
DX: L73.2 Hidradenitis suppurativa (principal)
CPT/HCPCS: 11450; J1170; J2185; J2250; J2704; J3010; J7042; 88304

== ENCOUNTER 2017-11-06 20:26 | Emergency (ER) | payer MEDICAID ==
[2017-11-06 20:41] VITALS: BP 153/83
--- NOTE | 2017-11-06 21:01 | EDM.PDOC ---
ED HPI GENERAL MEDICAL PROBLEM - General Chief Complaint: Wound Recheck Stated Complaint: SURGERY ON NOT DOING GOOD Time Seen by Provider: 11/06/17 20:45 Source of Information: Reports: Patient History Limitations: Reports: No Limitations - History of Present Illness INITIAL COMMENTS - FREE TEXT/NARRATIVE: 32-year-old female who had a right axillary hidradenitis procedure on the has been having some postoperative difficulties with the incision. Apparently the stitches gave way a few days ago, Steri-Strips are applied across the wound but now she was reaching into the oven tonight felt a pop in the right axillary area and the wound opened again. A neighbor had Steri-Strips and closed the wound again but she came in to have it looked at. She is complaining it's very painful. Onset: Sudden Right Armpit Pain Score (Numeric/FACES): 9 - Related Data Allergies Allergy/AdvReac Type Severity Reaction Status Date / Time naproxen Allergy Intermediate Hives Verified 11/06/17 20:41 coconut oil Allergy Other Verified 11/06/17 20:41 cyclobenzaprine Allergy Tachycardia Verified 11/06/17 20:41 [From Flexeril] Latex, Natural Rubber Allergy Hives Verified 11/06/17 20:41 tramadol Allergy Hives Verified 11/06/17 20:41 Home Meds: Home Meds Albuterol Sulfate [Proair Hfa] 2 puff INH Q4H PRN 03/11/14 [History] Ibuprofen 800 mg PO Q6H PRN 07/15/16 [History] Fluticasone Propionate [Flonase] 2 spray INGRID DAILY 10/12/17 [History] Levonorgestrel [Mirena] 1 each IY ASDIRECTED 10/14/17 [History] Loratadine 10 mg PO DAILY 10/14/17 [History] Pseudoephedrine HCl [Sudafed] 60 mg PO Q6H PRN 10/14/17 [History] Ranitidine [Zantac] 75 mg PO BID 10/14/17 [History] Sulfamethoxazole/Trimethoprim [Bactrim Ds Tablet] 1 each PO DAILY 10/28/17 [ History] Past Medical History HEENT History: Reports: Allergic Rhinitis, Impaired Vision Other HEENT History: tubes in ears as young child. 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: , Other (See Below) Other OB/BYN History: IUD Neurological History: Reports: Headaches, Chronic, Migraines Psychiatric History: Reports: Anxiety, Depression, Panic Attack Endocrine/Metabolic History: Reports: Obesity/BMI 30+ Dermatologic History: Reports: Other (See Below) Other Dermatologic History: hydradenitis left groin - Infectious Disease History Infectious Disease History: Reports: Chicken Pox, Pertussis (Whooping Cough) - Past Surgical History Head Surgeries/Procedures: Reports: None HEENT Surgical History: Reports: Myringotomy w Tube(s) Respiratory Surgical History: Reports: None GI Surgical History: Reports: Hernia Repair/Other Female Surgical History: Reports: Section Endocrine Surgical History: Reports: None Neurological Surgical History: Reports: None Dermatological Surgical History: Reports: None Social & Family History - Family History Family Medical History: Noncontributory Cardiac: Reports: Hypertension Respiratory: Reports: Asthma Psychiatric: Reports: Anxiety, Depression Endocrine/Metabolic: Reports: Diabetes, Type I Oncologic: Reports: Breast, Liver - Tobacco Use Smoking Status *Q: Unknown Ever Smoked Years of Tobacco use: 4 Packs/Tins Daily: 0.5 Used Tobacco, but Quit: Yes Month Tobacco Last Used: 08/2017 Second Hand Smoke Exposure: No - Caffeine Use Caffeine Use: Reports: Soda - Alcohol Use Days Per Week of Alcohol Use: 0 - Recreational Drug Use Recreational Drug Use: No Drug Use in Last 12 Months: No Recreational Drug Type: Reports: Marijuana/Hashish Recreational Drug Use Frequency: Binges Recreational Drug Last Use: t-2 ED ROS GENERAL - Review of Systems Review Of Systems: See Below Constitutional: Denies: Fever, Chills Respiratory: Denies: Shortness of Breath Cardiovascular: Denies: Chest Pain Skin: Reports: Other (See history of present illness) Psychiatric: Reports: Anxiety ED EXAM, SKIN/RASH Exam: See Below Exam Limited By: No Limitations General Appearance: Alert, No Apparent Distress, Anxious Respiratory/Chest: No Respiratory Distress Neurological: Alert, Oriented Skin: Warm, Dry, Other (Exam is otherwise limited to the right axillary area. There is a healing surgical incision covered by Steri-Strips, the anterior aspect of the incision does appear open about 5-7 mm. Underlying cutaneous sutures are seen. There is no drainage or redness.) Course - Vital Signs Last Recorded V/S: Last Vital Signs Temp 98.6 F 11/06/17 20:36 Pulse 84 11/06/17 20:36 Resp 19 11/06/17 20:36 BP 153/83 H 11/06/17 20:36 Pulse Ox 99 11/06/17 20:36 - Re-Assessments/Exams Free Text/Narrative Re-Assessment/Exam: 11/06/17 20:59 Patient was reassured. No further treatment is necessary tonight other than she was given 6 hydrocodone for pain control. She is going to return at 8 AM tomorrow morning to be seen by Dr. Beckham. Departure - Departure Time of Disposition: 21:10 Disposition: Home, Self-Care 01 Condition: Good Clinical Impression: Postoperative wound dehiscence Qualifiers: Encounter type: initial encounter Qualified Code(s): T81.31XA - Disruption of external operation (surgical) wound, not elsewhere classified, initial encounter - Discharge Information Instructions: Wound Care Referrals: Ricky Beckham MD [Primary Care Provider] - Forms: ED Department Discharge Care Plan Goals: Keep the wound protected and clean, return tomorrow morning at 8 AM for a recheck with Dr. Beckham. Use pain control tonight as prescribed if needed.
== END 2017-11-06 21:13 | disposition home or self-care (01) ==
LOC: JP.ED 20:26
DX: T81.31XA Disruption of external operation (surgical) wound, not elsewhere classified, initial encounter (principal); E66.9 Obesity, unspecified; Z91.040 Latex allergy status; Z88.5 Allergy status to narcotic agent; Z88.8 Allergy status to other drugs, medicaments and biological substances; J45.909 Unspecified asthma, uncomplicated; Z79.899 Other long term (current) drug therapy; Z87.891 Personal history of nicotine dependence
CPT/HCPCS: 99283

== ENCOUNTER 2018-02-04 10:36 | Emergency (ER) | payer MEDICAID ==
[2018-02-04 10:50] VITALS: BP 136/46
--- NOTE | 2018-02-04 11:25 | EDM.PDOC ---
ED HPI GENERAL MEDICAL PROBLEM - General Chief Complaint: ENT Problem Stated Complaint: TOOTH PAIN Time Seen by Provider: 02/04/18 11:19 Source of Information: Reports: Patient History Limitations: Reports: No Limitations - History of Present Illness INITIAL COMMENTS - FREE TEXT/NARRATIVE: pt arrived with dental pain in the rt lower gum line. She has pain extending back to the rt ear. Onset: Gradual, Other ( last 2-3 days. ) Duration: Day(s):, Getting Worse Location: Reports: Face Associated Symptoms: Reports: No Other Symptoms Left Tooth/Teeth Pain Score (Numeric/FACES): 10 - Related Data Allergies Allergy/AdvReac Type Severity Reaction Status Date / Time naproxen Allergy Intermediate Hives Verified 11/06/17 20:41 coconut oil Allergy Other Verified 11/06/17 20:41 cyclobenzaprine Allergy Tachycardia Verified 11/06/17 20:41 [From Flexeril] Latex, Natural Rubber Allergy Hives Verified 11/06/17 20:41 tramadol Allergy Hives Verified 11/06/17 20:41 Home Meds: Home Meds Albuterol Sulfate [Proair Hfa] 2 puff INH Q4H PRN 03/11/14 [History] Ibuprofen 800 mg PO Q6H PRN 07/15/16 [History] Fluticasone Propionate [Flonase] 2 spray INGRID DAILY 10/12/17 [History] Levonorgestrel [Mirena] 1 each IY ASDIRECTED 10/14/17 [History] Loratadine 10 mg PO DAILY 10/14/17 [History] Pseudoephedrine HCl [Sudafed] 60 mg PO Q6H PRN 10/14/17 [History] Ranitidine [Zantac] 75 mg PO ASDIRECTED PRN 10/14/17 [History] Rizatriptan [Maxalt] 10 mg PO ASDIRECTED PRN 02/04/18 [History] Past Medical History HEENT History: Reports: Allergic Rhinitis, Impaired Vision Other HEENT History: tubes in ears as young child. 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: , Other (See Below) Other OB/BYN History: IUD Neurological History: Reports: Headaches, Chronic, Migraines Psychiatric History: Reports: Anxiety, Depression, Panic Attack Endocrine/Metabolic History: Reports: Obesity/BMI 30+ Dermatologic History: Reports: Other (See Below) Other Dermatologic History: hydradenitis left groin - Infectious Disease History Infectious Disease History: Reports: Chicken Pox, Pertussis (Whooping Cough) - Past Surgical History Head Surgeries/Procedures: Reports: None HEENT Surgical History: Reports: Myringotomy w Tube(s) Respiratory Surgical History: Reports: None GI Surgical History: Reports: Hernia Repair/Other Female Surgical History: Reports: Section Endocrine Surgical History: Reports: None Neurological Surgical History: Reports: None Dermatological Surgical History: Reports: None Social & Family History - Family History Family Medical History: Noncontributory Cardiac: Reports: Hypertension Respiratory: Reports: Asthma Psychiatric: Reports: Anxiety, Depression Endocrine/Metabolic: Reports: Diabetes, Type I Oncologic: Reports: Breast, Liver - Tobacco Use Smoking Status *Q: Never Smoker Years of Tobacco use: 4 Packs/Tins Daily: 0.5 Used Tobacco, but Quit: Yes Month/Year Tobacco Last Used: 08/2017 Second Hand Smoke Exposure: No - Caffeine Use Caffeine Use: Reports: Soda, Tea - Alcohol Use Days Per Week of Alcohol Use: 0 - Recreational Drug Use Recreational Drug Use: No Drug Use in Last 12 Months: No Recreational Drug Type: Reports: Marijuana/Hashish Recreational Drug Use Frequency: Binges Recreational Drug Last Use: t-2 ED ROS ENT - Review of Systems Review Of Systems: See Below Constitutional: Reports: No Symptoms HEENT: Reports: Dental Pain, Ear Pain Respiratory: Reports: No Symptoms Cardiovascular: Reports: No Symptoms Endocrine: Reports: No Symptoms GI/Abdominal: Reports: No Symptoms : Reports: No Symptoms Musculoskeletal: Reports: No Symptoms ED EXAM, ENT - Physical Exam Exam: See Below Text/Narrative:: pt arrived with pain in the left lower gum line. The most posterior tooth is very tender. Exam Limited By: No Limitations General Appearance: Alert, Anxious, Moderate Distress Ears: Normal TMs Nose: Normal Inspection Mouth/Throat: Dental Tenderness, Other ( The most posterior left lower molar is very tender to palpate. ) Head: Atraumatic Neck: Normal Inspection Respiratory/Chest: No Respiratory Distress Cardiovascular: Regular Rate, Rhythm GI/Abdominal: Soft, Non-Tender Course - Vital Signs Last Recorded V/S: Last Vital Signs Temp 36.3 C 02/04/18 10:51 Pulse 82 02/04/18 10:51 Resp 16 02/04/18 10:51 BP 136/46 L 02/04/18 10:51 Pulse Ox 96 02/04/18 10:51 - Orders/Labs/Meds Meds: Medications Discontinued Medications Generic Name Dose Route Start Last Admin Trade Name Freq PRN Reason Stop Dose Admin Oxycodone/Acetaminophen 1 tab 02/04/18 11:22 Percocet 325-5 Mg PO 02/04/18 11:23 ONETIME ONE - Re-Assessments/Exams Free Text/Narrative Re-Assessment/Exam: 02/04/18 11:28 pt was given percocet . Departure - Departure Time of Disposition: 11:24 Disposition: Home, Self-Care 01 Condition: Fair Clinical Impression: Pain, dental - Discharge Information Referrals: Rhoda Ellsworth CNM [Primary Care Provider] - Forms: ED Department Discharge Care Plan Goals: dental appt thursday, norco 5/325 q6h prn for pain, amoxicillin 500mg tid.
[2018-02-04] MEDS: Acetaminophen/oxyCODONE 325-5 MG Tab PO ONE (11:38)
== END 2018-02-04 11:45 | disposition home or self-care (01) ==
LOC: JP.ED 10:36
DX: K08.89 Other specified disorders of teeth and supporting structures (principal); J45.909 Unspecified asthma, uncomplicated; E66.9 Obesity, unspecified; Z91.040 Latex allergy status; Z88.8 Allergy status to other drugs, medicaments and biological substances; Z91.018 Allergy to other foods; Z88.5 Allergy status to narcotic agent; Z79.899 Other long term (current) drug therapy; Z87.891 Personal history of nicotine dependence
CPT/HCPCS: 99283; A9270-GY

== ENCOUNTER 2018-04-02 19:47 | Emergency (ER) | payer MEDICAID ==
[2018-04-02 21:37] VITALS: BP 144/89
[2018-04-02] MEDS ORDERED: Ondansetron 4 MG/2 ML SDV IVPUSH ONE (21:40)
[2018-04-02] MEDS ORDERED: Sodium Chloride 0.9% 10 ML Syringe FLUSH PRN (21:40)
[2018-04-02] MEDS ORDERED: Sodium Chloride 0.9% 1,000 ML IV SCH (21:45)
--- NOTE | 2018-04-02 21:54 | EDM.PDOC ---
ED HPI GENERAL MEDICAL PROBLEM - General Chief Complaint: Headache Stated Complaint: ABD CRAMPING/3 DAYS/MIGRAINE Time Seen by Provider: 04/02/18 21:41 Source of Information: Reports: Patient History Limitations: Reports: No Limitations - History of Present Illness INITIAL COMMENTS - FREE TEXT/NARRATIVE: Amairani presents today with complaints of low abdominal/pelvic pain, abnormal vaginal bleeding and migraine for [address] for 2-3 years. Primary provider Cherelle Ellsworth. abdomen Pain Score (Numeric/FACES): 10 - Related Data Allergies Allergy/AdvReac Type Severity Reaction Status Date / Time naproxen Allergy Intermediate Hives Verified 04/02/18 23:28 coconut oil Allergy Other Verified 04/02/18 23:28 Latex, Natural Rubber Allergy Hives Verified 04/02/18 23:28 tramadol Allergy Hives Verified 04/02/18 23:28 cyclobenzaprine AdvReac Tachycardia Verified 04/02/18 23:28 [From Flexeril] Home Meds: Home Meds Albuterol Sulfate [Proair Hfa] 2 puff INH Q4H PRN 03/11/14 [History] Ibuprofen 800 mg PO Q6H PRN 07/15/16 [History] Fluticasone Propionate [Flonase] 2 spray INGRID DAILY 10/12/17 [History] Levonorgestrel [Mirena] 1 each IY ASDIRECTED 10/14/17 [History] Loratadine 10 mg PO DAILY 10/14/17 [History] Pseudoephedrine HCl [Sudafed] 60 mg PO Q6H PRN 10/14/17 [History] Ranitidine [Zantac] 75 mg PO ASDIRECTED PRN 10/14/17 [History] Rizatriptan [Maxalt] 10 mg PO ASDIRECTED PRN 02/04/18 [History] Past Medical History HEENT History: Reports: Allergic Rhinitis, Impaired Vision Other HEENT History: tubes in ears as young child. 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: , Other (See Below) Other OB/BYN History: IUD Neurological History: Reports: Headaches, Chronic, Migraines Psychiatric History: Reports: Anxiety, Depression, Panic Attack Endocrine/Metabolic History: Reports: Obesity/BMI 30+ Dermatologic History: Reports: Other (See Below) Other Dermatologic History: hydradenitis left groin - Infectious Disease History Infectious Disease History: Reports: Chicken Pox, Pertussis (Whooping Cough) - Past Surgical History Head Surgeries/Procedures: Reports: None HEENT Surgical History: Reports: Myringotomy w Tube(s) Respiratory Surgical History: Reports: None GI Surgical History: Reports: Hernia Repair/Other Female Surgical History: Reports: Section Endocrine Surgical History: Reports: None Neurological Surgical History: Reports: None Dermatological Surgical History: Reports: None Social & Family History - Family History Family Medical History: Noncontributory Cardiac: Reports: Hypertension Respiratory: Reports: Asthma Psychiatric: Reports: Anxiety, Depression Endocrine/Metabolic: Reports: Diabetes, Type I Oncologic: Reports: Breast, Liver - Caffeine Use Caffeine Use: Reports: Soda, Tea ED ROS GENERAL - Review of Systems Review Of Systems: See Below Constitutional: Reports: Fever, Chills, Malaise. Denies: Weakness, Night Sweats , Diaphoresis HEENT: Reports: No Symptoms Respiratory: Denies: Shortness of Breath, Wheezing, Cough, Sputum Cardiovascular: Denies: Chest Pain, Dyspnea on Exertion, Edema, Lightheadedness , Palpitations, PND, Syncope Endocrine: Reports: No Symptoms GI/Abdominal: Reports: Abdominal Pain, Diarrhea, Nausea, Vomiting. Denies: Bloody Stool, Constipation, Difficulty Swallowing, Distension, Hematemesis, Hematochezia : Reports: Dysuria, Flank Pain, Irregular Menses, Other (irregular vaginal bleeding with clots for 2 days off and on, followed by spotting. ). Denies: Frequency, Hematuria, Urgency, Urinary Retention Musculoskeletal: Reports: Muscle Pain, Other (chronic low back pain) Skin: Denies: Bruising, Rash, Erythema Neurological: Denies: Confusion, Dizziness, Headache, Numbness, Tingling, Weakness Psychiatric: Reports: No Symptoms Hematologic/Lymphatic: Reports: No Symptoms Immunologic: Reports: No Symptoms ED EXAM, GI/ABD - Physical Exam Exam: See Below Text/Narrative:: Amairani is an alert and oriented 32 year old female presenting to the emergency room tonight for complaints of migraine, abdominal pain, irregular vaginal bleedig with blood clots, nausea, fever and vomiting. Exam Limited By: No Limitations General Appearance: Alert, WD/WN, Moderate Distress Eyes: Bilateral: Normal Appearance, EOMI Ears: Normal External Exam, Normal Canal, Hearing Grossly Normal, Normal TMs Nose: Normal Inspection, Normal Mucosa, No Blood Throat/Mouth: Normal Inspection, Normal Lips, Normal Teeth, Normal Gums, Normal Oropharynx, Normal Voice, No Airway Compromise Head: Atraumatic, Normocephalic Neck: Normal Inspection, Supple, Non-Tender, Full Range of Motion. No: Lymphadenopathy (R), Lymphadenopathy (L) Respiratory/Chest: No Respiratory Distress, Lungs Clear, Normal Breath Sounds, No Accessory Muscle Use, Chest Non-Tender Cardiovascular: Normal Peripheral Pulses, Regular Rate, Rhythm, No Edema, No Murmur, No Rub GI/Abdominal Exam: Normal Bowel Sounds, No Organomegaly, No Distention, No Mass , Tender, Other (generalized tenderness and pain to abdomen, worse to LLQ. ). No: Guarding, Rigid, Rebound Back Exam: Normal Inspection, Full Range of Motion, CVA Tenderness (R). No: CVA Tenderness (L) Extremities: Normal Inspection, Normal Range of Motion, Non-Tender, No Pedal Edema, Normal Capillary Refill Neurological: Alert, Oriented, CN II-XII Intact, Normal Cognition, Normal Gait, No Motor/Sensory Deficits Psychiatric: Normal Affect, Normal Mood Skin Exam: Warm, Dry, Intact, Normal Color, No Rash Lymphatic: No Adenopathy Course - Vital Signs Last Recorded V/S: Last Vital Signs Temp 36.9 C 04/02/18 21:50 Pulse 68 04/02/18 21:50 Resp 16 04/02/18 21:50 BP 144/89 H 04/02/18 21:50 Pulse Ox 99 04/02/18 21:50 - Orders/Labs/Meds Orders: Active Orders 24 hr Category Date Time Status Pelvis Non OB Comp [US] Stat Exams 04/02/18 21:38 Taken HCG QUALITATIVE,URINE [URCHEM] Stat Lab 04/02/18 22:41 Ordered UA W/MICROSCOPIC [URIN] Stat Lab 04/02/18 22:41 Ordered Sodium Chloride 0.9% [Normal Saline] 1,000 ml Med 04/02/18 21:45 Active IV ASDIRECTED Sodium Chloride 0.9% [Saline Flush] Med 04/02/18 21:40 Active 10 ml FLUSH ASDIRECTED PRN Saline Lock Insert [OM.PC] Routine Oth 04/02/18 21:40 Ordered Medication Orders Sodium Chloride (Normal Saline) 1,000 mls @ 1,000 mls/hr IV ASDIRECTED CHITRA Last Admin: 04/02/18 22:10 Dose: 1,000 mls/hr Sodium Chloride (Saline Flush) 10 ml FLUSH ASDIRECTED PRN PRN Reason: Keep Vein Open Last Admin: 04/02/18 22:10 Dose: 10 ml Labs: Laboratory Tests 04/02/18 04/02/18 04/02/18 Range/Units 21:52 21:52 22:41 WBC 7.6 (4.5-11.0) K/uL RBC 4.38 (3.30-5.50) M/uL Hgb 13.2 (12.0-15.0) g/dL Hct 39.9 (36.0-48.0) % MCV 91 (80-98) fL MCH 30 (27-31) pg MCHC 33 (32-36) % Plt Count 264 (150-400) K/uL Neut % (Auto) 50 (36-66) % Lymph % (Auto) 36 (24-44) % Alpine % (Auto) 9 H (2-6) % Eos % (Auto) 4 (2-4) % Baso % (Auto) 0 (0-1) % Sodium 140 (140-148) mmol/L Potassium 3.8 (3.6-5.2) mmol/L Chloride 104 (100-108) mmol/L Carbon Dioxide 28 (21-32) mmol/L Anion Gap 7.6 (5.0-14.0) mmol/L BUN 11 (7-18) mg/dL Creatinine 0.8 (0.6-1.0) mg/dL Est Cr Clr Drug Dosing 84.29 mL/min Estimated GFR (MDRD) > 60 (>60) Glucose 101 (74-106) mg/dL Calcium 8.8 (8.5-10.1) mg/dL Total Bilirubin 0.2 (0.2-1.0) mg/dL AST 15 (15-37) U/L ALT 30 (12-78) U/L Alkaline Phosphatase 47 (46-116) U/L Total Protein 7.0 (6.4-8.2) g/dL Albumin 3.5 (3.4-5.0) g/dL Globulin 3.5 (2.3-3.5) g/dL Albumin/Globulin Ratio 1.0 L (1.2-2.2) Urine Color Yellow Urine Appearance Clear Urine pH 7.0 (4.5-8.0) Ur Specific [place] 1.015 (1.008-1.030) Urine Protein Negative (NEGATIVE) mg/dL Urine Glucose (UA) Normal (NEGATIVE) mg/dL Urine Ketones Negative (NEGATIVE) mg/dL Urine Occult Blood Negative (NEGATIVE) Urine Nitrite Negative (NEGATIVE) Urine Bilirubin Negative (NEGATIVE) Urine Urobilinogen Normal (NORMAL) mg/dL Ur Leukocyte Esterase Negative (NEGATIVE) Urine RBC 0-5 (0-5) Urine WBC 0-5 (0-5) Ur Epithelial Cells Few Amorphous Sediment Few Urine Bacteria Few Urine Mucus Not seen Urine HCG, Qual 04/02/18 Range/Units 22:41 WBC (4.5-11.0) K/uL RBC (3.30-5.50) M/uL Hgb (12.0-15.0) g/dL Hct (36.0-48.0) % MCV (80-98) fL MCH (27-31) pg MCHC (32-36) % Plt Count (150-400) K/uL Neut % (Auto) (36-66) % Lymph % (Auto) (24-44) % Alpine % (Auto) (2-6) % Eos % (Auto) (2-4) % Baso % (Auto) (0-1) % Sodium (140-148) mmol/L Potassium (3.6-5.2) mmol/L Chloride (100-108) mmol/L Carbon Dioxide (21-32) mmol/L Anion Gap (5.0-14.0) mmol/L BUN (7-18) mg/dL Creatinine (0.6-1.0) mg/dL Est Cr Clr Drug Dosing mL/min Estimated GFR (MDRD) (>60) Glucose (74-106) mg/dL Calcium (8.5-10.1) mg/dL Total Bilirubin (0.2-1.0) mg/dL AST (15-37) U/L ALT (12-78) U/L Alkaline Phosphatase (46-116) U/L Total Protein (6.4-8.2) g/dL Albumin (3.4-5.0) g/dL Globulin (2.3-3.5) g/dL Albumin/Globulin Ratio (1.2-2.2) Urine Color Urine Appearance Urine pH (4.5-8.0) Ur Specific [place] (1.008-1.030) Urine Protein (NEGATIVE) mg/dL Urine Glucose (UA) (NEGATIVE) mg/dL Urine Ketones (NEGATIVE) mg/dL Urine Occult Blood (NEGATIVE) Urine Nitrite (NEGATIVE) Urine Bilirubin (NEGATIVE) Urine Urobilinogen (NORMAL) mg/dL Ur Leukocyte Esterase (NEGATIVE) Urine RBC (0-5) Urine WBC (0-5) Ur Epithelial Cells Amorphous Sediment Urine Bacteria Urine Mucus Urine HCG, Qual Negative Patient lab work reviewed, no acute findings. Meds: Medications Generic Name Dose Route Start Last Admin Trade Name Freq PRN Reason Stop Dose Admin Sodium Chloride 1,000 mls @ 1,000 mls/hr 04/02/18 21:45 04/02/18 22:10 Normal Saline IV 1,000 mls/hr ASDIRECTED CHITRA Administration Sodium Chloride 10 ml 04/02/18 21:40 04/02/18 22:10 Saline Flush FLUSH 10 ml ASDIRECTED PRN Administration Keep Vein Open Discontinued Medications Generic Name Dose Route Start Last Admin Trade Name Freq PRN Reason Stop Dose Admin Diphenhydramine HCl 25 mg 04/02/18 22:42 04/02/18 23:02 Benadryl IVPUSH 04/02/18 22:43 25 mg ONETIME ONE Administration Ketorolac Tromethamine 30 mg 04/02/18 22:42 04/02/18 23:00 Toradol IVPUSH 04/02/18 22:43 30 mg ONETIME ONE Administration Ondansetron HCl 4 mg 04/02/18 21:40 04/02/18 22:11 Zofran IVPUSH 04/02/18 21:41 4 mg ONETIME ONE Administration - Radiology Interpretation Free Text/Narrative:: US of abdomen/pelvis - no free fluid, IUD in place, no abnormal findings. US findings and Lab work reviewed with, UA negative. She can be provided toradol and benadryl IV for headache. Departure - Departure Time of Disposition: 23:29 Disposition: Home, Self-Care 01 Condition: Good Clinical Impression: Migraine, Abdominal pain, Abnormal vaginal bleeding - Discharge Information Instructions: Migraine Headache, [id number], Abdominal Pain, Adult, Easy-to- Read Referrals: Rhoda Ellsworth CNM [Primary Care Provider] - Forms: ED Department Discharge, ED Return to Work/School Form Additional Instructions: You have been treated and evaluated in the emergency room for migraine, abdominal pain and abnormal vaginal bleeding. Lab work and ultrasound were normal. You were provided IV fluids, and medications for migraine. It would be best for you to follow up with your provider Maira Ellsworth for further management of your IUD, abdominal/pelvic pain and migraines. You may continue use of ibuprofen/acetaminophen for pain. Take zofran as directed for nausea. Eat the BRAT diet (Bananas, applesauce, rice and toast) to help with stomach/GI upset. Keep yourself hydrated and drink plenty of water. Return for worsening, issues or concerns. - My Orders Last 24 Hours: My Active Orders 04/02/18 21:38 Pelvis Non OB Comp [US] Stat 04/02/18 21:40 Sodium Chloride 0.9% [Saline Flush] 10 ml FLUSH ASDIRECTED PRN Saline Lock Insert [OM.PC] Routine 04/02/18 21:45 Sodium Chloride 0.9% [Normal Saline] 1,000 ml IV ASDIRECTED 04/02/18 22:41 HCG QUALITATIVE,URINE [URCHEM] Stat UA W/MICROSCOPIC [URIN] Stat - Assessment/Plan Last 24 Hours: My Active Orders 04/02/18 21:38 Pelvis Non OB Comp [US] Stat 04/02/18 21:40 Sodium Chloride 0.9% [Saline Flush] 10 ml FLUSH ASDIRECTED PRN Saline Lock Insert [OM.PC] Routine 04/02/18 21:45 Sodium Chloride 0.9% [Normal Saline] 1,000 ml IV ASDIRECTED 04/02/18 22:41 HCG QUALITATIVE,URINE [URCHEM] Stat UA W/MICROSCOPIC [URIN] Stat Assessment:: Abdominal pain Migraine Abnormal vaginal bleeding Plan: Patient treated and evaluated in the emergency room for migraine, abdominal pain and abnormal vaginal bleeding. Lab work and ultrasound were normal. Patient provided IV fluids, and medications for migraine with improvement. It would be best for her to follow up with her provider Maira Ellsworth for further management of your IUD, abdominal/pelvic pain and migraines. She may continue use of ibuprofen/acetaminophen for pain, zofran for nausea. Education provided on diet. Keep herself hydrated and drink plenty of water. Return for worsening, issues or concerns.
[2018-04-02] MEDS ORDERED: diphenhydrAMINE 50 MG/ML SDV IVPUSH ONE (22:42)
[2018-04-02] MEDS ORDERED: Ketorolac 30 MG/ML SDV IVPUSH ONE (22:42)
== END 2018-04-02 23:46 | disposition home or self-care (01) ==
LOC: JP.ED 19:47
DX: G43.909 Migraine, unspecified, not intractable, without status migrainosus (principal); N93.9 Abnormal uterine and vaginal bleeding, unspecified; Z88.6 Allergy status to analgesic agent; Z88.5 Allergy status to narcotic agent; Z91.040 Latex allergy status; Z88.8 Allergy status to other drugs, medicaments and biological substances; Z91.048 Other nonmedicinal substance allergy status; Z79.899 Other long term (current) drug therapy
CPT/HCPCS: 36415; 76856; 80053; 81001; 81025; 85025; 96361; 96374; 96375; 99284; J1200; J1885; J2405; J7040; J7050

== ENCOUNTER 2019-03-04 07:04 | Day surgery (SDC) | payer MEDICAID ==
[2019-03-04] MEDS ORDERED: Acetaminophen 500 MG Tab PO ONE (07:45)
[2019-03-04] MEDS ORDERED: Dextrose 5%-Lactated Ringers 1,000 ML IV SCH (08:15)
[2019-03-04] MEDS ORDERED: Ondansetron 4 MG/2 ML SDV ONE (08:21)
[2019-03-04] MEDS ORDERED: Succinylcholine 200 MG/10 ML MDV ONE (08:21)
[2019-03-04] MEDS ORDERED: Glycopyrrolate 0.2 MG/ML 5 ML MDV ONE (08:21)
[2019-03-04] MEDS ORDERED: Rocuronium 50 MG/5 ML Vial ONE (08:21)
[2019-03-04] MEDS ORDERED: Propofol 200 MG/20 ML SDV ONE (08:21)
[2019-03-04] MEDS ORDERED: Dexamethasone 4 MG/ML SDV ONE (08:21)
[2019-03-04] MEDS ORDERED: fentaNYL 250 MCG/5 ML SDV ONE (08:21)
[2019-03-04] MEDS ORDERED: Neostigmine Methylsulfate 1 MG/ML 5 ML Syringe ONE (08:21)
[2019-03-04] MEDS ORDERED: Meropenem 500 MG in Sodium Chloride 0.9% 50 ML IV ONE (08:45)
[2019-03-04] MEDS ORDERED: Bupivacaine 0.5%/EPINEPHrine 1:200,000 50 ML MDV ONE (10:29)
[2019-03-04] MEDS ORDERED: Bacitracin Oint 1 GM U/D Packet ONE ×2 (10:41)
[2019-03-04] MEDS ORDERED: hydrOXYzine HCl 100 MG/2 ML SDV IM ONE (11:31)
[2019-03-04 12:50] VITALS: BP 114/57
--- NOTE | 2019-03-08 14:33 | OR ---
DATE OF PROCEDURE: 03/04/2019 PREOPERATIVE DIAGNOSES: Hidradenitis suppurativa involving right thigh and perineal area, left buttock and perineal area, and left breast/axillary area. POSTOPERATIVE DIAGNOSES: Hidradenitis suppurativa involving right thigh and perineal area, left buttock and perineal area, and left breast/axillary area. OPERATIVE PROCEDURES: Excision of hidradenitis involvin. Right thigh/perineal area (64256). 2. Left buttock and perineal area (96242). 3. Left breast/axillary area (39026). ANESTHESIA: Local plus IV sedation. INDICATIONS FOR PROCEDURE: The patient presents with some active hidradenitis suppurativa focally noted in above located areas, and plan is to proceed with excision of these areas, primary closure is planned unless we break into some overt purulence, in which case, the wounds will be left open for secondary closure. Potential risks including bleeding and infection were reviewed, and the patient wishes to proceed. DETAILS OF PROCEDURE: The patient was taken to the operating room and placed in a right lateral decubitus position. This allowed exposure of the hidradenitis in the right thigh and perineal area as well as left buttock and perineal area. Those areas were prepped and draped, anesthetized with 1% lidocaine, and in each case, an elliptical incision was made around the lesions and the lesions removed intact, maintaining a plane of dissection in clean noninfected skin and subcutaneous tissue. In each case, the incision was then closed with some 5-0 Vicryl stitch deep and a 5-0 Prolene skin stitch. The patient was then placed in a supine position, and the left breast and axillary areas were prepped and draped. The area was then reanesthetized with 1% lidocaine and mixed with Marcaine. An elliptical incision was then made and a closure similar to the perineal sites was undertaken. Dressings were applied. The patient was taken to the recovery room in satisfactory condition. Cultures were obtained from one of the perineal area excisions and one on the breast/axillary excisions and sent for microbiologic workup. There were no evident complications. Ricky Beckham MD /[id number]
== END 2019-03-04 13:26 | disposition home or self-care (01) ==
LOC: JP.SDS 07:04
PROVIDERS: ATTEND Surgery
DX: L73.2 Hidradenitis suppurativa (principal); L28.0 Lichen simplex chronicus; L72.0 Epidermal cyst; K21.9 Gastro-esophageal reflux disease without esophagitis; J45.909 Unspecified asthma, uncomplicated
CPT/HCPCS: 11450; 11470; 36415; 80053; 81025; 85027; 87070; 87075; 87077; 87186; 87205; 88304; A9270; J0330; J1100; J2185; J2405; J2704; J2710; J3010; J3410; J3490; J7042; J7050

== ENCOUNTER 2019-03-13 11:33 | Emergency (ER) | payer MEDICAID ==
[2019-03-13 12:07] VITALS: BP 146/90
--- NOTE | 2019-03-13 14:42 | EDM.PDOC ---
ED HPI GENERAL MEDICAL PROBLEM - General Chief Complaint: Skin Complaint Stated Complaint: SURGERY SITE OPENED Time Seen by Provider: 03/13/19 14:38 Source of Information: Reports: Patient History Limitations: Reports: No Limitations - History of Present Illness INITIAL COMMENTS - FREE TEXT/NARRATIVE: pt arrived with a open wound in the inner aspect of the rt thigh. She had sirgery about 1 week ago and she now has a open wound. She is very unciomfortable. Onset: Gradual Duration: Day(s): Location: Reports: Lower Extremity, Right surgicl sites Pain Score (Numeric/FACES): 10 - Related Data Allergies Allergy/AdvReac Type Severity Reaction Status Date / Time naproxen Allergy Intermediate Hives Verified 03/13/19 12:09 coconut oil Allergy Other Verified 03/13/19 12:09 Latex, Natural Rubber Allergy Hives Verified 03/13/19 12:09 tramadol Allergy Hives Verified 03/13/19 12:09 cyclobenzaprine AdvReac Tachycardia Verified 03/13/19 12:09 [From Flexeril] Home Meds: Home Meds Albuterol Sulfate [Proair Hfa] 2 puff INH Q4H PRN 03/11/14 [History] Ibuprofen 800 mg PO Q6H PRN 07/15/16 [History] Fluticasone Propionate [Flonase] 2 spray INGRID DAILY 10/12/17 [History] Levonorgestrel [Mirena] 1 each IY ASDIRECTED 10/14/17 [History] Loratadine 10 mg PO DAILY 10/14/17 [History] Ranitidine [Zantac] 150 mg PO BID 10/14/17 [History] Acetaminophen [Tylenol Extra Strength] 1,000 mg PO Q6H PRN 06/14/18 [History] ClonazePAM [KlonoPIN] 0.5 mg PO TID PRN 07/25/18 [History] Meclizine HCl 25 mg PO TID PRN 03/02/19 [History] Ondansetron HCl [Ondansetron] 4 mg PO Q8H PRN 03/02/19 [History] cephALEXin [Keflex] 500 mg PO BID 03/04/19 [History] Past Medical History HEENT History: Reports: Allergic Rhinitis, Glaucoma, Impaired Vision Other HEENT History: tubes in ears as young child. 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 Musculoskeletal History: Reports: Arthritis Neurological History: Reports: Headaches, Chronic, Migraines Psychiatric History: Reports: Anxiety, Depression, Panic Attack Endocrine/Metabolic History: Reports: Obesity/BMI 30+ Dermatologic History: Reports: Other (See Below) Other Dermatologic History: hydradenitis bilat groin/bilat breast; buttocks - Infectious Disease History Infectious Disease History: Reports: Chicken Pox, Influenza - Past Surgical History Head Surgeries/Procedures: Reports: None HEENT Surgical History: Reports: Myringotomy w Tube(s) Respiratory Surgical History: Reports: None GI Surgical History: Reports: Hernia, Abdominal, Hernia Repair/Other Female Surgical History: Reports: Section Endocrine Surgical History: Reports: None Neurological Surgical History: Reports: None Musculoskeletal Surgical History: Reports: None Dermatological Surgical History: Reports: None Social & Family History - Family History Family Medical History: Noncontributory Cardiac: Reports: Hypertension Respiratory: Reports: Asthma Psychiatric: Reports: Anxiety, Depression Endocrine/Metabolic: Reports: Diabetes, Type I Oncologic: Reports: Breast, Liver - Tobacco Use Smoking Status *Q: Former Smoker Used Tobacco, but Quit: Yes Month/Year Tobacco Last Used: 2 years - Caffeine Use Caffeine Use: Reports: Soda - Recreational Drug Use Recreational Drug Use: No ED ROS GENERAL - Review of Systems Review Of Systems: See Below Constitutional: Reports: No Symptoms HEENT: Reports: No Symptoms Respiratory: Reports: No Symptoms Cardiovascular: Reports: No Symptoms Endocrine: Reports: No Symptoms GI/Abdominal: Reports: No Symptoms : Reports: No Symptoms Musculoskeletal: Reports: Other (pain in the rt thigh area. ) Skin: Reports: No Symptoms ED EXAM, SKIN/RASH Exam: See Below Text/Narrative:: pt arrived wiith pain in the thigh. The wound has opened up. she has an up coming appt with Dr Beckham. Exam Limited By: No Limitations General Appearance: Alert Extremities: Other ( rt thigh has a open wound that looks clean and not infected. All of the stitchhes have let loose. ) Course - Vital Signs Last Recorded V/S: Last Vital Signs Temp 36.4 C 03/13/19 12:05 Pulse 89 03/13/19 12:05 Resp 16 03/13/19 12:05 BP 146/90 H 03/13/19 12:05 Pulse Ox 97 03/13/19 12:05 Departure - Departure Time of Disposition: 14:42 Disposition: Home, Self-Care 01 Condition: Fair Clinical Impression: Open wound - Discharge Information Instructions: Wound Care, Adult Referrals: Rhoda Ellsworth CNM [Primary Care Provider] - Forms: ED Department Discharge Care Plan Goals: iodoform guaze layed in the wound then cover with gauze, clen with soapy solution daily, keep appt with Dr Beckham on thu. [place] 5/ 325 q8h prn for pain #8
== END 2019-03-13 15:42 | disposition home or self-care (01) ==
LOC: JP.ED 11:33
DX: T81.89XA Other complications of procedures, not elsewhere classified, initial encounter (principal); J45.909 Unspecified asthma, uncomplicated; K21.9 Gastro-esophageal reflux disease without esophagitis; Z79.899 Other long term (current) drug therapy; F41.9 Anxiety disorder, unspecified; F32.9 Major depressive disorder, single episode, unspecified; Z98.890 Other specified postprocedural states
CPT/HCPCS: 99282

== ENCOUNTER 2019-04-01 04:53 | Inpatient (IN) | payer MEDICAID ==
[2019-04-01] MEDS ORDERED: Acetaminophen 500 MG Tab PO ONE (05:39)
[2019-04-01] MEDS ORDERED: Scopolamine 1.5 MG Transdermal Patch TOP ONE (05:39)
[2019-04-01] MEDS ORDERED: Albuterol/Ipratropium 3.0-0.5 MG/3 ML Neb Soln NEB ONE (05:40)
[2019-04-01] MEDS ORDERED: Dextrose 5%-Lactated Ringers 1,000 ML IV SCH (05:45)
[2019-04-01] MEDS ORDERED: ceFAZolin 2 GM in Premix Bag 1 BAG IV ONE (06:30)
[2019-04-01] MEDS ORDERED: fentaNYL 250 MCG/5 ML SDV ONE (06:49)
[2019-04-01] MEDS ORDERED: Ondansetron 4 MG/2 ML SDV ONE (06:49)
[2019-04-01] MEDS ORDERED: Midazolam 1 MG/ML 2 ML SDV ONE (06:49)
[2019-04-01] MEDS ORDERED: Rocuronium 50 MG/5 ML Vial ONE (06:49)
[2019-04-01] MEDS ORDERED: Glycopyrrolate 0.2 MG/ML 5 ML MDV ONE (06:49)
[2019-04-01] MEDS ORDERED: Dexamethasone 4 MG/ML SDV ONE (06:49)
[2019-04-01] MEDS ORDERED: Propofol 200 MG/20 ML SDV ONE (06:49)
[2019-04-01] MEDS ORDERED: Succinylcholine 200 MG/10 ML MDV ONE (06:49)
[2019-04-01] MEDS ORDERED: Neostigmine Methylsulfate 1 MG/ML 5 ML Syringe ONE (06:49)
[2019-04-01] MEDS ORDERED: Meropenem 500 MG SDV ONE (07:01)
[2019-04-01] MEDS ORDERED: Bupivacaine 0.5%/EPINEPHrine 1:200,000 50 ML MDV ONE (07:01)
[2019-04-01] MEDS ORDERED: Naloxone 0.4 MG/ML SDV IV PRN (07:17)
[2019-04-01] MEDS ORDERED: Ketamine 50 MG in Sodium Chloride 0.9% 49.5 ML IV SCH (07:30)
[2019-04-01] MEDS ORDERED: Ketamine 500 MG/5 ML MDV IV SCH (07:30)
[2019-04-01] MEDS: HYDROmorphone/Normal Saline 15 MG/30 ML PCA IV PRN (08:07)
[2019-04-01] MEDS ORDERED: Lactated Ringers 1,000 ML ONE (08:17)
[2019-04-01] MEDS ORDERED: fentaNYL 100 MCG/2 ML SDV ONE (08:35)
[2019-04-01] MEDS ORDERED: hydrOXYzine HCl 100 MG/2 ML SDV IM ONE (08:51)
[2019-04-01] MEDS ORDERED: Albuterol/Ipratropium 3.0-0.5 MG/3 ML Neb Soln INH PRN (11:06)
[2019-04-01] MEDS ORDERED: Ondansetron 4 MG/2 ML SDV IVPUSH PRN (11:06)
[2019-04-01] MEDS ORDERED: Meclizine 25 MG Tab PO PRN (11:08)
[2019-04-01] MEDS: Ibuprofen 600 MG Tab PO SCH ×3 (12:08→23:42)
[2019-04-01] MEDS: Dextrose 5%-Lactated Ringers 1,000 ML IV SCH ×2 (13:21→19:57)
[2019-04-01] MEDS: Acetaminophen 500 MG Tab PO SCH ×2 (14:03→19:58)
[2019-04-01] MEDS: ceFAZolin 2 GM in Premix Bag 1 BAG IV SCH ×2 (14:04→21:58)
[2019-04-01] MEDS: Albuterol/Ipratropium 3.0-0.5 MG/3 ML Neb Soln INH SCH ×2 (14:33→21:21)
[2019-04-02] MEDS: Acetaminophen 500 MG Tab PO SCH ×4 (02:41→20:58)
[2019-04-02] MEDS: Dextrose 5%-Lactated Ringers 1,000 ML IV SCH (02:48)
[2019-04-02] MEDS: ceFAZolin 2 GM in Premix Bag 1 BAG IV SCH (06:17)
[2019-04-02] MEDS: Ibuprofen 600 MG Tab PO SCH ×4 (06:17→23:08)
[2019-04-02] MEDS: HYDROmorphone/Normal Saline 15 MG/30 ML PCA IV PRN (08:02)
[2019-04-02] MEDS: Albuterol/Ipratropium 3.0-0.5 MG/3 ML Neb Soln INH SCH ×4 (08:05→21:11)
[2019-04-02] MEDS: SCOPOLAMINE PATCH CHECK TOP SCH (08:06)
[2019-04-02] MEDS ORDERED: Dextrose 5%-Lactated Ringers 1,000 ML IV SCH (08:30)
[2019-04-02] MEDS: diphenhydrAMINE 25 MG Cap PO PRN ×3 (09:04→23:07)
[2019-04-02] MEDS: Docusate Sodium 100 MG Cap PO SCH ×2 (09:05→20:58)
[2019-04-02] MEDS: Bisacodyl 5 MG Tab PO SCH ×2 (09:05→20:58)
[2019-04-02] MEDS: ClonazePAM 0.5 MG Tab PO PRN (15:40)
[2019-04-02] MEDS ORDERED: Calcium Carbonate 500 MG Tab.Chew PO PRN (17:12)
[2019-04-03] MEDS: Acetaminophen 500 MG Tab PO SCH ×3 (02:38→20:23)
[2019-04-03] MEDS: Ibuprofen 600 MG Tab PO SCH ×3 (06:07→18:39)
[2019-04-03] MEDS: Albuterol/Ipratropium 3.0-0.5 MG/3 ML Neb Soln INH SCH ×4 (07:53→22:06)
[2019-04-03] MEDS ORDERED: Sodium Chloride 0.9% 10 ML Syringe IV PRN (08:45)
[2019-04-03] MEDS ORDERED: Magnesium Hydroxide 400 MG/5 ML Susp 30 ML Cup PO PRN (08:46)
[2019-04-03] MEDS: Docusate Sodium 100 MG Cap PO SCH ×2 (08:48→22:04)
[2019-04-03] MEDS: Bisacodyl 5 MG Tab PO SCH ×2 (08:52→22:03)
[2019-04-03] MEDS: SCOPOLAMINE PATCH CHECK TOP SCH (08:53)
[2019-04-03] MEDS: Acetaminophen/oxyCODONE 325-5 MG Tab PO PRN ×2 (08:57→13:39)
[2019-04-03] MEDS: ClonazePAM 0.5 MG Tab PO PRN (12:52)
[2019-04-03] MEDS: HYDROmorphone 2 MG Tab PO PRN ×2 (16:28→20:23)
[2019-04-03] MEDS ORDERED: Ondansetron 4 MG Tab.DIS PO PRN (20:28)
[2019-04-04] MEDS: Ibuprofen 600 MG Tab PO SCH ×2 (00:08→05:29)
[2019-04-04] MEDS: HYDROmorphone 2 MG Tab PO PRN ×3 (00:12→10:47)
[2019-04-04] MEDS: Acetaminophen 500 MG Tab PO SCH ×2 (02:18→07:31)
[2019-04-04] MEDS: Albuterol/Ipratropium 3.0-0.5 MG/3 ML Neb Soln INH SCH (07:20)
[2019-04-04 07:35] VITALS: BP 126/70
--- NOTE | 2019-04-04 09:35 | DISCH ---
ADMISSION DIAGNOSES: 1. Abdominal wall hernia. 2. Hidradenitis. 3. Reactive depression. 4. Bilateral ocular hypertension. 5. Gastroesophageal reflux disease. 6. Migraine headaches. 7. Constipation. 8. Morbid obesity, BMI of 49. DISCHARGE DIAGNOSES: 1. Diagnostic laparoscopy with lysis of extensive abdominal adhesions. a. Repair of incarcerated umbilical hernia with mesh. b. Repair of incarcerated abdominal hernia with mesh. c. Placement of Vicryl mesh. 2. Limited laparotomy with repair of incarcerated incisional hernia and excision of portion of left I.I.N and I.H.N. for incarcerated recurrent incisional hernia, incarcerated umbilical hernia, nonincarcerated incisional hernia, left lower quadrant incision, and left I.I.N. and I.H.N. and external intra abdominal adhesions. Date of surgery 04/01/2019. Surgeon, Ricky Beckham MD. HISTORY: Amairani Kay is a 33-year-old female with incarcerated incisional hernias as above. After preoperative evaluation and discussion of possible risks and possible complications, she wished to proceed with surgical procedure. HOSPITAL COURSE: Amairani had her surgery on 04/01/2019. She had no operative complications. On postoperative day #1, her dressings were changed twice a day. IV went to TKO. She received bowel stimulation. On postoperative day #2, her HARVEST MANAGER was discontinued. She was started on Percocet and given milk of magnesia, and she was able to shower. Later in the day, the Percocet was not helping with her pain. She was changed to Dilaudid and had better pain relief. Her vital signs were stable, activity good, oral intake adequate, had bowel movements and was able to be discharged to home on 04/04/2019. PHYSICAL EXAMINATION: GENERAL: Amairani Kay is a 33-year-old female. Height is 5 feet 3 inches. Weight is 278 pounds. BMI is 49. VITAL SIGNS: TPR is 96.1, 88, 18. Blood pressure 126/70. HEENT: Negative. NECK: Supple. HEART: Regular rate and rhythm. LUNGS: Clear. ABDOMEN: Abdominal binder has been on with pressure dressing on trocar sites on abdomen. Sutures are intact, healing well. Left inguinal incision, Steri-Strips are on. Incision is clean and dry. EXTREMITIES: Without peripheral edema. DISPOSITION: Discharge to home. CONDITION: Stable and improving. FOLLOWUP: Followup appointment with Ricky Beckham MD, at [facility] on 04/13/2019 at 9 a.m. HOME MEDICATIONS: 1. Tylenol Extra Strength 1000 mg oral q.6 hours, #50. 2. Colace 100 mg oral twice daily, #90. 3. Dilaudid 2 mg oral q.4 hours p.r.n. pain, #30 emergency supply script was written. 4. Ibuprofen 600 mg q.6 hours p.r.n. pain #40. She is to resume home medications of: 1. ProAir inhaler 2 puffs every 4 hours p.r.n. wheezing. 2. Clonazepam 0.5 mg twice daily p.r.n. anxiety. 3. Colace 100 mg oral twice daily. 4. Flonase 2 sprays in each nostril daily. 5. Ketoconazole one applicator twice daily, 2% cream. 6. Continue with Mirena IUD. 7. Loratadine 10 mg oral daily. 8. Meclizine 25 mg oral 3 times a day p.r.n. dizziness. 9. Zofran ODT 4 mg every 8 hours p.r.n. nausea. 10.Ranitidine ran to Will 150 mg oral twice daily. 11.Finish out cephalexin 500 mg twice daily. DIET: Usual diet as tolerated, drink 8-10 glasses of water a day. ACTIVITY: As tolerated. No lifting over 10 pounds for 6 weeks[address] Driving, do not drive for 1 week and while on narcotic pain medication. Shower/bathing, may shower. DISCHARGE INSTRUCTIONS: Notify provider if any fever, increased pain, nausea, or vomiting. Wound incision care, keep site clean and dry. Wear a pressure dressing over hernia site and abdominal binder for 6 weeks. SPECIAL INSTRUCTION: Use incentive spirometer 10 times every hour while awake.
[2019-04-04] MEDS: Bisacodyl 5 MG Tab PO SCH (09:52)
--- NOTE | 2019-04-04 10:32 | PN ---
DATE OF SERVICE: 04/02/2019 The patient is status post repair of umbilical and recurrent incisional hernias laparoscopically, as well as open left inguinal hernia. 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 Otherwise, will give some bowel stimulation and will probably go to oral pain medication tomorrow. Ricky Beckham MD /[id number]
[2019-04-04] MEDS: Docusate Sodium 100 MG Cap PO SCH (10:47)
--- NOTE | 2019-04-05 09:42 | PN ---
DATE OF SERVICE: 04/03/2019 The patient has been afebrile with stable vital signs. She has had little bit of cramping and did not move her bowels as of yet. We will give her some additional milk of magnesia, in addition to Dulcolax oral tablets this morning. We will also switch her over to oral pain medication. We will saline lock the IV, and she will likely be able to be discharged home tomorrow. Ricky Beckham MD /[id number]
--- NOTE | 2019-04-05 13:00 | OR ---
DATE OF PROCEDURE: 04/01/2019 PREOPERATIVE DIAGNOSES: 1. Incarcerated recurrent incisional hernia. 2. Left inguinal hernia versus left lower abdominal incisional hernia. POSTOPERATIVE DIAGNOSES: 1. Incarcerated recurrent incisional hernia. 2. Incarcerated umbilical hernia. 3. Nonincarcerated incisional hernia in the left lower quadrant incision. 4. Left ilioinguinal nerve and iliohypogastric nerves at risk for scar entrapment. 5. Extensive intraabdominal adhesions. OPERATIVE PROCEDURES: 1. Diagnostic laparoscopy with lysis of extensive adhesions: a. Repair of incarcerated umbilical hernia (90968). b. Repair of incarcerated recurrent incisional hernia with mesh (62284). c. Placement of Vicryl mesh to displace pelvic and abdominal eng from underlying viscera to limit recurrent adhesion formation (95373). 2. Limited laparotomy with: a. Repair of incisional hernia with mesh ([id number], [id number]). b. Excision of portion of left ilioinguinal nerve (11561). c. Excision of portion of left iliohypogastric nerve (64932). ANESTHESIA: General. LIQUOR RECTIFIER: Mary Marshall PA-C, and CARLA Sage. INDICATIONS FOR PROCEDURE: This is a 33-year-old presenting with recurrent incarcerated incisional hernia, and this is located at the incision in the supraumbilical area. She also has a hernia in the left lower abdomen. It is uncertain whether this is an incisional hernia occurring in a Pfannenstiel incision at that location or an inguinal hernia that will be determined intraoperatively. Plan will be to proceed with diagnostic laparoscopy with repair of the supraumbilical incisional hernia with mesh and then repair of the left lower quadrant inguinal versus incisional hernia with mesh as well. Potential risks of procedure including bleeding, infection, any injury to underlying viscera, possible problems with mesh becoming infected or hernias recurring, chronic pain following the hernia repair were all reviewed, and the patient wishes to proceed. DETAILS OF PROCEDURE: The patient was taken to the operating room. After general endotracheal anesthesia was induced, Chacon catheter was inserted, and the abdomen prepped and draped. In the left lateral abdomen, a transverse incision was made. Peritoneal cavity was entered under direct vision with an Optiview trocar, inflated to 15 mmHg pressure with CO2. Following this, 5 mm trocar was placed in the left upper quadrant, as well as left lower quadrant, and subsequently similar trocars were placed laterally in the right abdomen. Bilateral transversus abdominis plane blocks were then placed and the area examined. There were quite extensive adhesions between the omentum and the anterior abdominal wall. The patient, in addition to the recurrent incisional hernia, was noted to have an umbilical hernia, both containing incarcerated omentum within them. The adhesions were taken down with Harmonic scalpel and dissected free from the abdominal wall. Once these were taken down, the combined area of herniation was mapped out and a 20.[address] mesh was selected. This is a mesh with balloon positioning system. Mesh was soaked in antibiotic-containing saline solution, and through a stab wound midway between the 2 hernias, which were more or less [id number], after the mesh had been placed in intraperitoneal location, the balloon inflation catheter pulled up and the balloon inflated, thus bringing the mesh up against the abdominal wall. The mesh was then affixed to the abdominal wall with circumferential layers of absorbable tacking screws. At that point, balloon was deflated and balloon removed. The mesh was confirmed to be fixed well against the abdominal wall in all areas and well away from the areas of herniation. To limit recurrent adhesion formation, a 12-inch square portion of Vicryl mesh was placed underneath the newly placed mesh and from there down to the pelvic and abdominal eng to displace those surfaces from the underlying viscera. At that point, the trocars were sequentially removed. The fascia at the 12 mm site was closed with 0 Vicryl stitch and the skin with 4-0 Vicryl skin stitch. Attention was taken to the left lower quadrant area. The previous Pfannenstiel incision was then reused and carried down through the skin and subcutaneous tissue. As one dissected through the external oblique aponeurosis, it became evident that this was an incisional hernia occurring in that incision, rather than an inguinal hernia. The hernia was dissected away from the inner aspect of the abdominal wall and the defect, which measured around 2 cm to 3 cm. An extra large mesh plug was then placed into the abdominal wall and affixed circumferentially to the underside of the abdominal wall with horizontal mattress sutures of 2-0 Vicryl stitch. Once these were in place, the patient was noted to have both the ilioinguinal nerve and iliohypogastric nerve crossing more or less across the area of repair, which would be incorporated in subsequent sutures, as well as scar, and given this, a portion of both of those nerves were excised to limit the possibility of postoperative neuropathic pain. Fascia was then approximated over the area of the mesh plug with a running 0 Vicryl stitch. Over this, the external oblique aponeurosis was repaired with 3-0 Vicryl stitch, as well as subcutaneous tissue, and the skin closed with 4-0 Vicryl subcuticular stitch. Dressing was applied. The patient was taken to the recovery room in satisfactory condition. Physician assistant maintenance manager, Mary Marshall, played an essential role in assisting in this case, helping to position the patient, retract structures as needed, as well as suturing and cutting sutures when indicated. Her presence improved patient safety and decreased operative time. Ricky Beckham MD /[id number]
== END 2019-04-04 10:51 | disposition home or self-care (01) | DRG 354 ==
LOC: JP.SDS 04:53 → JP.SDSSCHI 04:53 → EDSTATUS 08:25 → JP.MS 10:48
PROVIDERS: ADMIT Surgery; ATTEND Surgery
PROC: 0WUF4JZ Supplement Abdominal Wall with Synthetic Substitute, Percutaneous Endoscopic Approach (ICD-10-PCS; principal; 2019-04-01)
PROC: 01B90ZZ Excision of Lumbar Plexus, Open Approach (ICD-10-PCS; principal; 2019-04-01)
DX: K42.0 Umbilical hernia with obstruction, without gangrene (principal); Z68.42 Body mass index [BMI] 45.0-49.9, adult; K40.90 Unilateral inguinal hernia, without obstruction or gangrene, not specified as recurrent; K43.0 Incisional hernia with obstruction, without gangrene; L73.2 Hidradenitis suppurativa; F32.9 Major depressive disorder, single episode, unspecified; H40.053 Ocular hypertension, bilateral; K21.9 Gastro-esophageal reflux disease without esophagitis; G43.909 Migraine, unspecified, not intractable, without status migrainosus; K59.00 Constipation, unspecified; E66.01 Morbid (severe) obesity due to excess calories; K66.0 Peritoneal adhesions (postprocedural) (postinfection); H54.7 Unspecified visual loss; H40.9 Unspecified glaucoma; J45.909 Unspecified asthma, uncomplicated; K59.09 Other constipation; M19.90 Unspecified osteoarthritis, unspecified site; F41.9 Anxiety disorder, unspecified; Z87.891 Personal history of nicotine dependence; Z91.040 Latex allergy status; Z88.8 Allergy status to other drugs, medicaments and biological substances; Z91.018 Allergy to other foods; Z79.899 Other long term (current) drug therapy; Z97.5 Presence of (intrauterine) contraceptive device
CPT/HCPCS: 81025; 88302; 94640; 94762; A9270-GY; C1713; C1781; J0171; J0330; J0690; J1100; J1170; J2020; J2185; J2250; J2405; J2704; J2710; J2795; J3010; J3410; J3490; J7042; J7050; J7120; J7620-GY

== ENCOUNTER 2019-04-11 15:08 | Emergency (ER) | payer MEDICAID ==
[2019-04-11 15:30] VITALS: BP 145/84
--- NOTE | 2019-04-11 16:46 | EDM.PDOC ---
ED HPI GENERAL MEDICAL PROBLEM - General Chief Complaint: Abdominal Pain Stated Complaint: LEFT SIDE STOMACH PAIN POST SURGERY (7 DAYS AGO) Time Seen by Provider: 04/11/19 15:47 Source of Information: Reports: Patient History Limitations: Reports: No Limitations - History of Present Illness INITIAL COMMENTS - FREE TEXT/NARRATIVE: 33-year-old female continuing to have some postoperative abdominal pain because of overactivity, she is getting ready for a home inspection and is taking care of her kids and is not "getting any help from her boyfriend". She has an appointment with Dr. Beckham on Thursday, 2 days from now. She did get a fairly significant prescription of Dilaudid but apparently this was giving her migraines so she was switched to oxycodone and she took the last one this morning. She is not having fevers or chills, no nausea or vomiting. Associated Symptoms: Reports: No Other Symptoms. Denies: Fever/Chills, Nausea/ Vomiting, Shortness of Breath Right Upper Abdomen Pain Score (Numeric/FACES): 9 - Related Data Allergies Allergy/AdvReac Type Severity Reaction Status Date / Time naproxen Allergy Intermediate Hives Verified 04/01/19 06:29 coconut oil Allergy Other Verified 04/01/19 06:29 Latex, Natural Rubber Allergy Hives Verified 04/01/19 06:29 tramadol Allergy Hives Verified 04/01/19 06:29 Home Meds: Home Meds Albuterol Sulfate [Proair Hfa] 2 puff INH Q4H PRN 03/11/14 [History] Fluticasone Propionate [Flonase] 2 spray INGIRD DAILY 10/12/17 [History] Levonorgestrel [Mirena] 1 each IY ASDIRECTED 10/14/17 [History] Loratadine 10 mg PO DAILY 10/14/17 [History] Ranitidine [Zantac] 150 mg PO BID 10/14/17 [History] ClonazePAM [KlonoPIN] 0.5 mg PO BID PRN 07/25/18 [History] Meclizine HCl 25 mg PO TID PRN 03/02/19 [History] Ondansetron HCl [Ondansetron] 4 mg PO Q8H PRN 03/02/19 [History] Acetaminophen [Tylenol Extra Strength] 1,000 mg PO Q6H #50 tablet 04/04/19 [Rx] Docusate Sodium [Colace] 100 mg PO BID #90 cap 04/04/19 [Rx] Ibuprofen [Motrin] 800 mg PO Q6H 04/11/19 [History] oxyCODONE HCl/Acetaminophen [Percocet 5-325 mg Tablet] 1 each PO Q4HR PRN [History] Past Medical History HEENT History: Reports: Allergic Rhinitis, Glaucoma, Impaired Vision Other HEENT History: tubes in ears as young child. 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: , Other (See Below) Other MEDIA LAW FACULTY MEMBER History: IUD Musculoskeletal History: Reports: Arthritis Neurological History: Reports: Headaches, Chronic, Migraines Psychiatric History: Reports: Anxiety, Depression, Panic Attack Endocrine/Metabolic History: Reports: Obesity/BMI 30+ Dermatologic History: Reports: Other (See Below) Other Dermatologic History: hydradenitis bilat groin/bilat breast; buttocks - Infectious Disease History Infectious Disease History: Reports: Chicken Pox, Influenza - Past Surgical History HEENT Surgical History: Reports: Myringotomy w Tube(s) Respiratory Surgical History: Reports: None GI Surgical History: Reports: Hernia, Abdominal, Hernia Repair/Other Other GI Surgeries/Procedures: Hernia's repaired 10 days ago. Female Surgical History: Reports: Section Endocrine Surgical History: Reports: None Neurological Surgical History: Reports: None Musculoskeletal Surgical History: Reports: None Dermatological Surgical History: Reports: None Social & Family History - Family History Family Medical History: Noncontributory Cardiac: Reports: Hypertension Respiratory: Reports: Asthma Psychiatric: Reports: Anxiety, Depression Endocrine/Metabolic: Reports: Diabetes, Type I Oncologic: Reports: Breast, Liver - Tobacco Use Smoking Status *Q: Never Smoker - Caffeine Use Caffeine Use: Reports: Soda - Recreational Drug Use Recreational Drug Use: No ED ROS GENERAL - Review of Systems Review Of Systems: See Below Constitutional: Denies: Fever, Chills HEENT: Reports: No Symptoms Respiratory: Denies: Shortness of Breath Cardiovascular: Denies: Chest Pain GI/Abdominal: Reports: Abdominal Pain. Denies: Diarrhea, Nausea, Vomiting : Reports: No Symptoms Skin: Reports: Bruising (Bruising from the operative sites, no draining) ED EXAM, GI/ABD - Physical Exam Exam: See Below Exam Limited By: No Limitations General Appearance: Alert, No Apparent Distress, Other (Patient is very emotional, tearful) Eyes: Bilateral: Normal Appearance Respiratory/Chest: No Respiratory Distress, Lungs Clear GI/Abdominal Exam: Normal Bowel Sounds, Tender (She is tender to palpation around her surgical incisions but they look excellent, there is no erythema) Neurological: Alert, Oriented Psychiatric: Depressed Mood, Flat Affect Skin Exam: Other (Some typical perioperative bruising which is expected, no erythema or warmth) Course - Vital Signs Last Recorded V/S: Last Vital Signs Temp 98.4 F 04/11/19 15:50 Pulse 109 H 04/11/19 15:50 Resp 24 H 04/11/19 15:50 BP 145/84 H 04/11/19 15:50 Pulse Ox 98 04/11/19 15:50 - Re-Assessments/Exams Free Text/Narrative Re-Assessment/Exam: 04/11/19 16:44 Patient having persistent postoperative abdominal pain likely complicated by emotional factors and overuse. She was given 15 additional doses of Percocet to use for the next 48 hours until she sees Dr. Beckham on Thursday. Departure - Departure Time of Disposition: 16:42 Disposition: Home, Self-Care 01 Condition: Good Clinical Impression: Abdominal pain Qualifiers: Abdominal location: generalized Qualified Code(s): R10.84 - Generalized abdominal pain - Discharge Information Instructions: Abdominal Pain, Adult, [id number] Referrals: Rhoda Ellsworth CNM [Primary Care Provider] - Forms: ED Department Discharge Care Plan Goals: Use pain medication as directed. Recheck with Dr. Beckham on Thursday as scheduled. Return sooner if worsening such as high fever or vomiting.
== END 2019-04-11 16:52 | disposition home or self-care (01) ==
LOC: JP.ED 15:08
DX: G89.18 Other acute postprocedural pain (principal); R10.11 Right upper quadrant pain; M19.90 Unspecified osteoarthritis, unspecified site; E66.9 Obesity, unspecified; Z79.899 Other long term (current) drug therapy; Z96.22 Myringotomy tube(s) status; Z88.5 Allergy status to narcotic agent; Z88.8 Allergy status to other drugs, medicaments and biological substances; Z91.040 Latex allergy status; Z98.890 Other specified postprocedural states
CPT/HCPCS: 99283

== ENCOUNTER 2019-04-17 19:43 | Emergency (ER) | payer MEDICAID ==
[2019-04-17] MEDS ORDERED: Acetaminophen 500 MG Tab PO ONE (20:40)
[2019-04-17] MEDS ORDERED: Lactated Ringers 1,000 ML IV SCH (20:45)
--- NOTE | 2019-04-17 20:46 | EDM.PDOC ---
ED HPI GENERAL MEDICAL PROBLEM - General Chief Complaint: Abdominal Pain Stated Complaint: RIGHT UPPER ABDOMINAL PAIN Time Seen by Provider: 04/17/19 20:30 Source of Information: Reports: Patient, Old Records History Limitations: Reports: No Limitations - History of Present Illness INITIAL COMMENTS - FREE TEXT/NARRATIVE: 33 yo obese female with recent hernia repair by Dr. Beckham presents with progressive RUQ abdominal pain for the past 3 days associated with a temp to 101F and dysuria. Is still having some bloody discharge from her surgical sites. Is taking ibuprofen that reduces her temp for a period of time. No vomiting. No rash. Not SOB, coughing increases the pain. Onset: Gradual Onset Date: 04/15/19 Duration: Day(s): (3), Getting Worse Location: Reports: Abdomen (RUQ) Quality: Reports: Ache, Pressure Severity: Moderate Improves with: Reports: Medication Worsens with: Reports: Other (time, coughing or deep breathing) Context: Reports: Other (see HPI) Associated Symptoms: Reports: Fever/Chills. 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 Abdominal Pain Score (Numeric/FACES): 8 - Related Data Allergies Allergy/AdvReac Type Severity Reaction Status Date / Time naproxen Allergy Intermediate Hives Verified 04/17/19 20:57 coconut oil Allergy Other Verified 04/17/19 20:57 Latex, Natural Rubber Allergy Hives Verified 04/17/19 20:57 tramadol Allergy Hives Verified 04/17/19 20:57 Home Meds: Home Meds Albuterol Sulfate [Proair Hfa] 2 puff INH Q4H PRN 03/11/14 [History] Fluticasone Propionate [Flonase] 2 spray INGRID DAILY 10/12/17 [History] Levonorgestrel [Mirena] 1 each IY ASDIRECTED 10/14/17 [History] Loratadine 10 mg PO DAILY 10/14/17 [History] Ranitidine [Zantac] 150 mg PO BID 10/14/17 [History] ClonazePAM [KlonoPIN] 0.5 mg PO BID PRN 07/25/18 [History] Ondansetron HCl [Ondansetron] 4 mg PO Q8H PRN 03/02/19 [History] Acetaminophen [Tylenol Extra Strength] 1,000 mg PO Q6H #50 tablet 04/04/19 [Rx] Docusate Sodium [Colace] 100 mg PO BID #90 cap 04/04/19 [Rx] Ibuprofen [Motrin] 800 mg PO Q6H 04/11/19 [History] Past Medical History HEENT History: Reports: Allergic Rhinitis, Glaucoma, Impaired Vision Other HEENT History: tubes in ears as young child. 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 Musculoskeletal History: Reports: Arthritis Neurological History: Reports: Headaches, Chronic, Migraines Psychiatric History: Reports: Anxiety, Depression, Panic Attack Endocrine/Metabolic History: Reports: Obesity/BMI 30+ Dermatologic History: Reports: Other (See Below) Other Dermatologic History: hydradenitis bilat groin/bilat breast; buttocks - Infectious Disease History Infectious Disease History: Reports: Chicken Pox, Influenza - Past Surgical History HEENT Surgical History: Reports: Myringotomy w Tube(s) Respiratory Surgical History: Reports: None GI Surgical History: Reports: Hernia, Abdominal, Hernia Repair/Other Other GI Surgeries/Procedures: Hernia's repaired 10 days ago. Female Surgical History: Reports: Section Endocrine Surgical History: Reports: None Neurological Surgical History: Reports: None Musculoskeletal Surgical History: Reports: None Dermatological Surgical History: Reports: None Social & Family History - Family History Family Medical History: Noncontributory Cardiac: Reports: Hypertension Respiratory: Reports: Asthma Psychiatric: Reports: Anxiety, Depression Endocrine/Metabolic: Reports: Diabetes, Type I Oncologic: Reports: Breast, Liver - Caffeine Use Caffeine Use: Reports: Soda ED ROS GENERAL - Review of Systems Review Of Systems: See Below Constitutional: Reports: Fever, Chills, Malaise HEENT: Reports: No Symptoms Respiratory: Reports: No Symptoms. Denies: Shortness of Breath, Cough, Sputum Cardiovascular: Reports: No Symptoms Endocrine: Reports: No Symptoms GI/Abdominal: Reports: Abdominal Pain (RUQ). Denies: Black Stool, Bloody Stool , Constipation, Diarrhea, Decreased Appetite, Distension, Flatus, Hematochezia, Melena, Nausea, Vomiting : Reports: Dysuria Musculoskeletal: Reports: No Symptoms Skin: Reports: No Symptoms Neurological: Reports: No Symptoms ED EXAM, GI/ABD - Physical Exam Exam: See Below Exam Limited By: No Limitations General Appearance: Alert, WD/WN, No Apparent Distress, Obese Eyes: Bilateral: Normal Appearance Ears: Normal External Exam, Normal Canal, Hearing Grossly Normal Nose: Normal Inspection, No Blood Throat/Mouth: Normal Inspection, Normal Lips, Normal Oropharynx, Normal Voice, No Airway Compromise Head: Atraumatic, Normocephalic Neck: Normal Inspection Respiratory/Chest: No Respiratory Distress, Lungs Clear, Normal Breath Sounds, No Accessory Muscle Use Cardiovascular: Regular Rate, Rhythm, No Edema GI/Abdominal Exam: Normal Bowel Sounds, Soft, No Distention, Tender (RUQ). No: Non-Tender, Distended, Guarding, Rigid, Rebound Back Exam: Normal Inspection. No: CVA Tenderness (R), CVA Tenderness (L) Extremities: Normal Inspection, Normal Range of Motion, Non-Tender, No Pedal Edema Neurological: Alert, Oriented, CN II-XII Intact, Normal Cognition, No Motor/ Sensory Deficits Psychiatric: Normal Affect, Normal Mood Skin Exam: Warm, Dry, Intact, Normal Color, No Rash Course - Vital Signs Last Recorded V/S: Last Vital Signs Temp 37.1 C 04/17/19 21:01 Pulse 73 04/17/19 22:22 Resp 17 04/17/19 22:22 BP 143/79 H 04/17/19 22:22 Pulse Ox 99 04/17/19 22:22 - Orders/Labs/Meds Orders: Active Orders 24 hr Category Date Time Status Abdomen Ltd [US] Stat Exams 04/17/19 21:35 Ordered Lactated Ringers [Ringers, Lactated] 1,000 ml Med 04/17/19 20:45 Active IV ASDIRECTED Medication Orders Lactated Ringer's (Ringers, Lactated) 1,000 mls @ 500 mls/hr IV ASDIRECTED CHITRA Last Admin: 04/17/19 21:08 Dose: 500 mls/hr Labs: Laboratory Tests 04/17/19 04/17/19 04/17/19 Range/Units 20:39 20:53 20:53 WBC 9.6 (4.5-11.0) K/uL RBC 4.20 (3.30-5.50) M/uL Hgb 12.5 (12.0-15.0) g/dL Hct 38.1 (36.0-48.0) % MCV 91 (80-98) fL MCH 30 (27-31) pg MCHC 33 (32-36) % Plt Count 394 (150-400) K/uL Sodium 139 L (140-148) mmol/L Potassium 4.1 (3.6-5.2) mmol/L Chloride 103 (100-108) mmol/L Carbon Dioxide 27 (21-32) mmol/L Anion Gap 13.1 (5.0-14.0) mmol/L BUN 12 (7-18) mg/dL Creatinine 0.8 (0.6-1.0) mg/dL Est Cr Clr Drug Dosing 83.51 mL/min Estimated GFR (MDRD) > 60 (>60) Glucose 95 (74-106) mg/dL Calcium 9.3 (8.5-10.1) mg/dL Total Bilirubin 0.1 L D (0.2-1.0) mg/dL AST 12 L (15-37) U/L ALT 21 (12-78) U/L Alkaline Phosphatase 50 (46-116) U/L C-Reactive Protein (0.0-0.3) mg/dL Total Protein 7.6 (6.4-8.2) g/dL Albumin 3.3 L (3.4-5.0) g/dL Globulin 4.3 H (2.3-3.5) g/dL Albumin/Globulin Ratio 0.8 L (1.2-2.2) Urine Color Yellow Urine Appearance Clear Urine pH 5.0 (4.5-8.0) Ur Specific [place] 1.010 (1.008-1.030) Urine Protein Negative (NEGATIVE) mg/dL Urine Glucose (UA) Normal (NEGATIVE) mg/dL Urine Ketones Negative (NEGATIVE) mg/dL Urine Occult Blood Large (NEGATIVE) Urine Nitrite Negative (NEGATIVE) Urine Bilirubin Negative (NEGATIVE) Urine Urobilinogen Normal (NORMAL) mg/dL Ur Leukocyte Esterase Negative (NEGATIVE) Urine RBC 5-10 H (0-5) Urine WBC 0-5 (0-5) Ur Epithelial Cells Moderate Amorphous Sediment Not seen Urine Bacteria Few Urine Mucus Moderate 04/17/19 Range/Units 20:53 WBC (4.5-11.0) K/uL RBC (3.30-5.50) M/uL Hgb (12.0-15.0) g/dL Hct (36.0-48.0) % MCV (80-98) fL MCH (27-31) pg MCHC (32-36) % Plt Count (150-400) K/uL Sodium (140-148) mmol/L Potassium (3.6-5.2) mmol/L Chloride (100-108) mmol/L Carbon Dioxide (21-32) mmol/L Anion Gap (5.0-14.0) mmol/L BUN (7-18) mg/dL Creatinine (0.6-1.0) mg/dL Est Cr Clr Drug Dosing mL/min Estimated GFR (MDRD) (>60) Glucose (74-106) mg/dL Calcium (8.5-10.1) mg/dL Total Bilirubin (0.2-1.0) mg/dL AST (15-37) U/L ALT (12-78) U/L Alkaline Phosphatase (46-116) U/L C-Reactive Protein 0.74 H (0.0-0.3) mg/dL Total Protein (6.4-8.2) g/dL Albumin (3.4-5.0) g/dL Globulin (2.3-3.5) g/dL Albumin/Globulin Ratio (1.2-2.2) Urine Color Urine Appearance Urine pH (4.5-8.0) Ur Specific [place] (1.008-1.030) Urine Protein (NEGATIVE) mg/dL Urine Glucose (UA) (NEGATIVE) mg/dL Urine Ketones (NEGATIVE) mg/dL Urine Occult Blood (NEGATIVE) Urine Nitrite (NEGATIVE) Urine Bilirubin (NEGATIVE) Urine Urobilinogen (NORMAL) mg/dL Ur Leukocyte Esterase (NEGATIVE) Urine RBC (0-5) Urine WBC (0-5) Ur Epithelial Cells Amorphous Sediment Urine Bacteria Urine Mucus Meds: Medications Generic Name Dose Route Start Last Admin Trade Name Freq PRN Reason Stop Dose Admin Lactated Ringer's 1,000 mls @ 500 mls/hr 04/17/19 20:45 04/17/19 21:08 Ringers, Lactated IV 500 mls/hr ASDIRECTED CHITRA Administration Discontinued Medications Generic Name Dose Route Start Last Admin Trade Name Freq PRN Reason Stop Dose Admin Acetaminophen 1,000 mg 04/17/19 20:40 04/17/19 21:08 Tylenol Extra Strength PO 04/17/19 20:41 1,000 mg ONETIME ONE Administration Hydromorphone HCl 0.5 mg 04/17/19 22:33 04/17/19 22:43 Dilaudid IVPUSH 04/17/19 22:34 0.5 mg ONETIME ONE Administration - Radiology Interpretation Free Text/Narrative:: GB ultrasound-negative Departure - Departure Time of Disposition: 22:57 Disposition: Home, Self-Care 01 Condition: Fair Clinical Impression: RUQ abdominal pain - Discharge Information *PRESCRIPTION DRUG MONITORING PROGRAM REVIEWED*: No *COPY OF PRESCRIPTION DRUG MONITORING REPORT IN PATIENT KERRI: No Instructions: Abdominal Pain, Adult, [id number] Referrals: PCP,None [Primary Care Provider] - Forms: ED Department Discharge Additional Instructions: [place] as needed for pain relief. Light diet and clear liquids tonight and tomorrow. Recheck with your provider if not improving. - My Orders Last 24 Hours: My Active Orders 04/17/19 20:45 Lactated Ringers [Ringers, Lactated] 1,000 ml IV ASDIRECTED 04/17/19 21:35 Abdomen Ltd [US] Stat - Assessment/Plan Last 24 Hours: My Active Orders 04/17/19 20:45 Lactated Ringers [Ringers, Lactated] 1,000 ml IV ASDIRECTED 04/17/19 21:35 Abdomen Ltd [US] Stat
--- NOTE | 2019-04-17 21:19 | CRLCR ---
INDICATION: Chest pain; fever; right upper quadrant abdominal pain. TECHNIQUE: Two-view chest. FINDINGS: Normal size cardiac silhouette. Clear lung ibarra with no evidence of acute pneumonic infiltrates or CHF. No pneumothorax or pleural effusion. IMPRESSION: Negative chest. Dictated by Alondra Hernandez MD @ Apr 17 2019 9:17PM Signed by Dr. Alondra Hernandez @ Apr 17 2019 9:18PM
[2019-04-17 22:22] VITALS: BP 143/79
[2019-04-17] MEDS ORDERED: HYDROmorphone 0.5 MG/0.5 ML Syringe IVPUSH ONE (22:33)
--- NOTE | 2019-04-17 23:19 | CRLUS ---
INDICATION: Right upper quadrant pain TECHNIQUE: Ultrasound abdomen limited. Sonographic images of the right upper quadrant were obtained using patel-scale and color Doppler images. COMPARISON: None FINDINGS: Liver: Moderate fatty infiltration of the liver is present. Gallbladder: The neck of the gallbladder is not well demonstrated. The gallbladder is contracted and difficult to evaluate. No gallstones are identified. The gallbladder wall is normal in appearance. No pericholecystic fluid is present. No sonographic [place] sign is present. Common bile duct: 6 mm. No intrahepatic biliary ductal dilatation seen. Pancreas: The visualized portions of the pancreatic head and body are normal in appearance. Right Kidney: 12.5 cm. No hydronephrosis or ureterectasis is seen. Vascular: Proximal abdominal aorta and IVC are normal in caliber. The visualized portal vein is patent with normal anterograde flow. IMPRESSION: 1. The right upper quadrant is unremarkable in appearance. Dictated by Edward Fitzgerald MD @ 04/17/2019 11:17:47 PM Dictated by: Edward Fitzgerald MD @ 04/17/2019 23:17:51 (Electronically Signed)
== END 2019-04-17 23:13 | disposition home or self-care (01) ==
LOC: JP.ED 19:43
DX: R10.11 Right upper quadrant pain (principal); E66.9 Obesity, unspecified; J45.909 Unspecified asthma, uncomplicated; Z88.5 Allergy status to narcotic agent; Z91.040 Latex allergy status; Z79.899 Other long term (current) drug therapy; Z96.22 Myringotomy tube(s) status; Z88.8 Allergy status to other drugs, medicaments and biological substances
CPT/HCPCS: 36415; 71046; 76705; 80053; 81001; 85027; 86140; 96361; 96374; 99284; A9270; J1170; J7120

== ENCOUNTER 2019-07-03 19:13 | Inpatient (IN) | payer MEDICAID ==
[2019-07-03] MEDS ORDERED: Ondansetron 4 MG/2 ML SDV IVPUSH ONE (20:06)
[2019-07-03] MEDS ORDERED: Sodium Chloride 0.9% 10 ML Syringe FLUSH PRN (20:06)
[2019-07-03] MEDS ORDERED: HYDROmorphone 0.5 MG/0.5 ML Syringe IVPUSH ONE (20:06)
--- NOTE | 2019-07-03 20:11 | EDM.PDOC ---
ED HPI GENERAL MEDICAL PROBLEM - General Chief Complaint: General Stated Complaint: ABD PAIN, HEADACHE, LIGHT HEADED Time Seen by Provider: 07/03/19 19:24 Source of Information: Reports: Patient, Family, Old Records, RN Notes Reviewed History Limitations: Reports: No Limitations - History of Present Illness INITIAL COMMENTS - FREE TEXT/NARRATIVE: 34-year-old female presents emergency department today complaint of abdominal pain states she's had abdominal pain for about 4 days she still passing gas she' s also developed a migraine type headache which she does have a history of. She is nauseated no vomiting no shortness of breath or chest pain. Also has a history of multiple abdominal hernia repairs. Abdomen Pain Score (Numeric/FACES): 6 - Related Data Allergies Allergy/AdvReac Type Severity Reaction Status Date / Time naproxen Allergy Intermediate Hives Verified 04/17/19 20:57 coconut oil Allergy Respiratory Verified 07/03/19 19:45 Distress Latex, Natural Rubber Allergy Hives Verified 04/17/19 20:57 tramadol Allergy Hives Verified 04/17/19 20:57 Home Meds: Home Meds Albuterol Sulfate [Proair Hfa] 2 puff INH Q4H PRN 03/11/14 [History] Fluticasone Propionate [Flonase] 2 spray INGRID DAILY PRN 10/12/17 [History] Levonorgestrel [Mirena] 1 each IY ASDIRECTED 10/14/17 [History] Loratadine 10 mg PO DAILY PRN 10/14/17 [History] Ranitidine [Zantac] 150 mg PO BID PRN 10/14/17 [History] ClonazePAM [KlonoPIN] 0.5 mg PO BID PRN 07/25/18 [History] Ondansetron HCl [Ondansetron] 4 mg PO Q8H PRN 03/02/19 [History] Ibuprofen [Motrin] 800 mg PO Q6H PRN 04/11/19 [History] Acetaminophen [Tylenol Extra Strength] 1,000 mg PO Q6H PRN 07/03/19 [History] Past Medical History HEENT History: Reports: Allergic Rhinitis, Glaucoma, Impaired Vision Other HEENT History: tubes in ears as young child. 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: Reports: , Other (See Below) Other LIQUEFACTION SUPERVISOR History: IUD Musculoskeletal History: Reports: Arthritis Neurological History: Reports: Headaches, Chronic, Migraines Psychiatric History: Reports: Anxiety, Depression, Panic Attack Endocrine/Metabolic History: Reports: Obesity/BMI 30+ Dermatologic History: Reports: Other (See Below) Other Dermatologic History: hydradenitis bilat groin/bilat breast; buttocks - Infectious Disease History Infectious Disease History: Reports: Chicken Pox - Past Surgical History HEENT Surgical History: Reports: Myringotomy w Tube(s) GI Surgical History: Reports: Hernia, Abdominal, Hernia Repair/Other Other GI Surgeries/Procedures: Hernia's repaired 10 days ago. Female Surgical History: Reports: Section Dermatological Surgical History: Reports: None Social & Family History - Family History Family Medical History: Noncontributory Cardiac: Reports: Hypertension Respiratory: Reports: Asthma Psychiatric: Reports: Anxiety, Depression Endocrine/Metabolic: Reports: Diabetes, Type I Oncologic: Reports: Breast, Liver - Caffeine Use Caffeine Use: Reports: Soda ED ROS GENERAL - Review of Systems Review Of Systems: See Below Constitutional: Reports: No Symptoms HEENT: Reports: No Symptoms Respiratory: Reports: No Symptoms Cardiovascular: Reports: No Symptoms GI/Abdominal: Reports: Abdominal Pain, Flatus, Nausea. Denies: Constipation, Diarrhea, Vomiting : Reports: No Symptoms Musculoskeletal: Reports: No Symptoms Skin: Reports: No Symptoms Neurological: Reports: No Symptoms ED EXAM, GENERAL - Physical Exam Exam: See Below Exam Limited By: No Limitations General Appearance: Alert, WD/WN, No Apparent Distress Respiratory/Chest: No Respiratory Distress, Lungs Clear, Normal Breath Sounds, No Accessory Muscle Use, Chest Non-Tender Cardiovascular: Regular Rate, Rhythm, No Murmur GI/Abdominal: Soft, Guarding, Tender (Epigastric region). No: Rigid, Rebound Course - Vital Signs Last Recorded V/S: Last Vital Signs Temp 97.3 F 07/03/19 19:57 Pulse 80 07/03/19 19:57 Resp 18 07/03/19 19:57 BP 152/93 H 07/03/19 19:57 Pulse Ox 98 07/03/19 19:57 - Orders/Labs/Meds Orders: Active Orders 24 hr Category Date Time Status Lactated Ringers [Ringers, Lactated] 1,000 ml Med 07/03/19 20:15 Active IV ASDIRECTED Sodium Chloride 0.9% [Normal Saline] 85 ml Med 07/03/19 20:45 Active IV ASDIRECTED Sodium Chloride 0.9% [Saline Flush] Med 07/03/19 20:06 Active 10 ml FLUSH ASDIRECTED PRN Peripheral IV Insertion Adult [OM.PC] Urgent Oth 07/03/19 20:06 Ordered Medication Orders Lactated Ringer's (Ringers, Lactated) 1,000 mls @ 999 mls/hr IV ASDIRECTED CHITRA Last Admin: 07/03/19 20:26 Dose: 999 mls/hr Sodium Chloride (Normal Saline) 85 mls @ 3 mls/sec IV ASDIRECTED CHITRA Last Admin: 07/03/19 21:05 Dose: 3 mls/sec Sodium Chloride (Saline Flush) 10 ml FLUSH ASDIRECTED PRN PRN Reason: Keep Vein Open Last Admin: 07/03/19 20:33 Dose: 10 ml Labs: Laboratory Tests 07/03/19 07/03/19 07/03/19 Range/Units 20:06 20:06 20:23 WBC 8.8 (4.5-11.0) K/uL RBC 4.44 (3.30-5.50) M/uL Hgb 13.3 (12.0-15.0) g/dL Hct 40.3 (36.0-48.0) % MCV 91 (80-98) fL MCH 30 (27-31) pg MCHC 33 (32-36) % Plt Count 306 (150-400) K/uL Neut % (Auto) 57 (36-66) % Lymph % (Auto) 33 (24-44) % [place] % (Auto) 8 H (2-6) % Eos % (Auto) 2 (2-4) % Baso % (Auto) 0 (0-1) % Sodium (140-148) mmol/L Potassium (3.6-5.2) mmol/L Chloride (100-108) mmol/L Carbon Dioxide (21-32) mmol/L Anion Gap (5.0-14.0) mmol/L BUN (7-18) mg/dL Creatinine (0.6-1.0) mg/dL Est Cr Clr Drug Dosing mL/min Estimated GFR (MDRD) (>60) Glucose (74-106) mg/dL Lactic Acid (0.4-2.0) mmol/L Calcium (8.5-10.1) mg/dL Total Bilirubin (0.2-1.0) mg/dL AST (15-37) U/L ALT (12-78) U/L Alkaline Phosphatase (46-116) U/L Total Protein (6.4-8.2) g/dL Albumin (3.4-5.0) g/dL Globulin (2.3-3.5) g/dL Albumin/Globulin Ratio (1.2-2.2) Lipase (73-393) U/L Urine Color Yellow (YELLOW) Urine Appearance Clear (CLEAR) Urine pH 5.5 (5.0-8.0) Ur Specific [place] > 1.030 (1.008-1.030) Urine Protein 30 H (NEGATIVE) mg/dL Urine Glucose (UA) Normal (NEGATIVE) mg/dL Urine Ketones 15 H (NEGATIVE) mg/dL Urine Occult Blood Negative (NEGATIVE) Urine Nitrite Negative (NEGATIVE) Urine Bilirubin Small (NEGATIVE) Urine Urobilinogen 0.2 (0.2-1.0) EU/dL Ur Leukocyte Esterase Negative (NEGATIVE) Urine RBC 0-5 (0-5) Urine WBC 0-5 (0-5) Ur Epithelial Cells Many Amorphous Sediment Not seen Urine Bacteria Many Urine Mucus Not seen Urine HCG, Qual Negative 07/03/19 07/03/19 Range/Units 20:23 20:23 WBC (4.5-11.0) K/uL RBC (3.30-5.50) M/uL Hgb (12.0-15.0) g/dL Hct (36.0-48.0) % MCV (80-98) fL MCH (27-31) pg MCHC (32-36) % Plt Count (150-400) K/uL Neut % (Auto) (36-66) % Lymph % (Auto) (24-44) % [place] % (Auto) (2-6) % Eos % (Auto) (2-4) % Baso % (Auto) (0-1) % Sodium 141 (140-148) mmol/L Potassium 3.4 L (3.6-5.2) mmol/L Chloride 106 (100-108) mmol/L Carbon Dioxide 25 (21-32) mmol/L Anion Gap 13.4 (5.0-14.0) mmol/L BUN 10 (7-18) mg/dL Creatinine 0.8 (0.6-1.0) mg/dL Est Cr Clr Drug Dosing 82.74 mL/min Estimated GFR (MDRD) > 60 (>60) Glucose 111 H (74-106) mg/dL Lactic Acid 1.1 (0.4-2.0) mmol/L Calcium 9.1 (8.5-10.1) mg/dL Total Bilirubin 0.3 D (0.2-1.0) mg/dL AST 19 (15-37) U/L ALT 41 D (12-78) U/L Alkaline Phosphatase 51 (46-116) U/L Total Protein 7.3 (6.4-8.2) g/dL Albumin 3.8 (3.4-5.0) g/dL Globulin 3.5 (2.3-3.5) g/dL Albumin/Globulin Ratio 1.1 L (1.2-2.2) Lipase 89 (73-393) U/L Urine Color (YELLOW) Urine Appearance (CLEAR) Urine pH (5.0-8.0) Ur Specific [place] (1.008-1.030) Urine Protein (NEGATIVE) mg/dL Urine Glucose (UA) (NEGATIVE) mg/dL Urine Ketones (NEGATIVE) mg/dL Urine Occult Blood (NEGATIVE) Urine Nitrite (NEGATIVE) Urine Bilirubin (NEGATIVE) Urine Urobilinogen (0.2-1.0) EU/dL Ur Leukocyte Esterase (NEGATIVE) Urine RBC (0-5) Urine WBC (0-5) Ur Epithelial Cells Amorphous Sediment Urine Bacteria Urine Mucus Urine HCG, Qual Meds: Medications Generic Name Dose Route Start Last Admin Trade Name Freq PRN Reason Stop Dose Admin Lactated Ringer's 1,000 mls @ 999 mls/hr 07/03/19 20:15 07/03/19 20:26 Ringers, Lactated IV 999 mls/hr ASDIRECTED CHITRA Administration Sodium Chloride 85 mls @ 3 mls/sec 07/03/19 20:45 07/03/19 21:05 Normal Saline IV 3 mls/sec ASDIRECTED CHITRA Administration Sodium Chloride 10 ml 07/03/19 20:06 07/03/19 20:33 Saline Flush FLUSH 10 ml ASDIRECTED PRN Administration Keep Vein Open Discontinued Medications Generic Name Dose Route Start Last Admin Trade Name Freq PRN Reason Stop Dose Admin Hydromorphone HCl 0.5 mg 07/03/19 20:06 07/03/19 20:26 Dilaudid IVPUSH 07/03/19 20:07 0.5 mg ONETIME ONE Administration Iopamidol 150 ml 07/03/19 20:45 07/03/19 21:05 Isovue-300 (61%) IV 150 ml . DIRECTED CHITRA Administration Ondansetron HCl 4 mg 07/03/19 20:06 07/03/19 20:28 Zofran IVPUSH 07/03/19 20:07 4 mg ONETIME ONE Administration Sodium Chloride 10 ml 07/03/19 20:39 07/03/19 21:05 Saline Flush FLUSH 07/03/19 20:40 10 ml ONETIME ONE Administration Departure - Departure Time of Disposition: 22:30 Disposition: Refer to Observation Condition: Fair Clinical Impression: Abdominal pain Qualifiers: Abdominal location: periumbilical Qualified Code(s): R10.33 - Periumbilical pain - Discharge Information Referrals: Rhoda Ellsworth CNM [Primary Care Provider] - Forms: ED Department Discharge - My Orders Last 24 Hours: My Active Orders 07/03/19 20:06 Sodium Chloride 0.9% [Saline Flush] 10 ml FLUSH ASDIRECTED PRN Peripheral IV Insertion Adult [OM.PC] Urgent 07/03/19 20:15 Lactated Ringers [Ringers, Lactated] 1,000 ml IV ASDIRECTED 07/03/19 20:45 Sodium Chloride 0.9% [Normal Saline] 85 ml IV ASDIRECTED - Assessment/Plan Last 24 Hours: My Active Orders 07/03/19 20:06 Sodium Chloride 0.9% [Saline Flush] 10 ml FLUSH ASDIRECTED PRN Peripheral IV Insertion Adult [OM.PC] Urgent 07/03/19 20:15 Lactated Ringers [Ringers, Lactated] 1,000 ml IV ASDIRECTED 07/03/19 20:45 Sodium Chloride 0.9% [Normal Saline] 85 ml IV ASDIRECTED Plan: Assessment Acuity = acute Site and laterality = abdominal pain with a new 2.9 x 2.2 cm area around the spigelian hernia on the left Etiology = unknown Manifestations = abdominal pain, nausea, vomiting Location of injury = Home Lab values = CBC, CMP, urinalysis unremarkable CT scan describes hernia above Plan Called discussed case with Dr. Beckham at 2200 kindly agreed to admit the patient for observation and possible surgical intervention can be nothing by mouth with ice chips] This note was dictated using [employer] voice recognition software please call with any questions on syntax or grammar.
[2019-07-03] MEDS ORDERED: Lactated Ringers 1,000 ML IV SCH (20:15)
[2019-07-03] MEDS ORDERED: Sodium Chloride 0.9% 10 ML Syringe FLUSH ONE (20:39)
[2019-07-03] MEDS ORDERED: Iopamidol 612 MG/ML 150 ML Bottle IV SCH (20:45)
--- NOTE | 2019-07-03 22:07 | CRLCT ---
INDICATION: Periumbilical pain. COMPARISON: 04/05/2018 TECHNIQUE: CT examination of the abdomen and pelvis was performed with the uneventful intravenous administration of 145 cc of Isovue while 3 mm thick axial sections were obtained from the lung bases through the pubic symphysis. Oral contrast was not administered. Please note that all CT scans at this facility use dose modulation, iterative reconstruction, and/or weight-based dosing when appropriate to reduce radiation dose to as low as reasonably achievable. FINDINGS: In the abdomen, the liver is now seen to be low in density, representing fatty infiltration. There is no sign of mass. The spleen, pancreas and adrenals are normal in appearance. The kidneys are normal in appearance. The gallbladder is normal in appearance. The abdominal aorta is normal in caliber with no sign of dilatation. There is no sign of retroperitoneal mass or adenopathy. The stomach, loops of small bowel, and colon in the abdomen are normal in appearance. There is new inflammatory reaction in the peritoneal fat deep to a small left spigelian hernia, seen on axial image 124 series 2. This is not associated with a loop of bowel and it may be an area of fat necrosis or a hematoma. It measures 2.9 x 2.2 centimeters. In the pelvis, the appendix is normal in appearance with no sign of inflammatory process. The loops of small bowel and colon in the pelvis are normal in appearance. The uterus is again seen to have a T-shaped intrauterine device in satisfactory position in the superior fundus. The adnexal regions are normal in appearance. The urinary bladder is normal in appearance. There is no sign of pelvic or inguinal mass or adenopathy. The lung bases are clear. The osseous structures are normal in appearance for the patient`s age. IMPRESSION: CT of the abdomen shows new mild fatty infiltration of the liver. CT of the pelvis shows a new small fluid collection located deep to a small left spigelian hernia measuring 2.9 x 2.2 centimeters. This could be an area of fat necrosis or a hematoma. Recommend correlation with the clinical exam. There is no sign of herniation of any small bowel or other peritoneal structures into this region. Satisfactory positioning of an intrauterine device. Please note that all CT scans at this facility use dose modulation, iterative reconstruction, and/or weight-based dosing when appropriate to reduce radiation dose to as low as reasonably achievable. Dictated by Wiley Echeverria MD @ Jul 03 2019 9:57PM Signed by Dr. Wiley Echeverria @ Jul 03 2019 10:05PM
[2019-07-03] MEDS ORDERED: HYDROmorphone 1 MG/ML Syringe IVPUSH ONE (22:27)
[2019-07-03] MEDS ORDERED: Ondansetron 4 MG/2 ML SDV IV PRN (22:38)
[2019-07-03] MEDS ORDERED: Fluticasone Propionate Nasal Spray 16 GM Bottle NAS PRN (22:41)
[2019-07-03] MEDS ORDERED: Albuterol 8 GM Inhaler INH PRN (22:41)
[2019-07-03] MEDS ORDERED: LEVONORGESTREL IY SCH (22:45)
[2019-07-03] MEDS ORDERED: Loratadine 10 MG Tab PO PRN (23:15)
[2019-07-04] MEDS: Lactated Ringers 1,000 ML IV SCH ×2 (00:17→09:23)
[2019-07-04] MEDS ORDERED: Ondansetron 4 MG/2 ML SDV IVPUSH PRN (00:20)
[2019-07-04] MEDS: HYDROmorphone 0.5 MG/0.5 ML Syringe IVPUSH PRN ×4 (03:05→12:32)
[2019-07-04] MEDS ORDERED: Potassium Chloride Riders 40 MEQ in Premix Bag 1 BAG IV ONE (07:09)
[2019-07-04] MEDS ORDERED: Ketamine 500 MG/5 ML MDV IV SCH ×3 (07:15→11:00)
[2019-07-04] MEDS ORDERED: Bupivacaine 0.5%/EPINEPHrine 1:200,000 50 ML MDV ONE (07:42)
[2019-07-04] MEDS: Pantoprazole 40 MG Vial IVPUSH SCH (08:17)
--- NOTE | 2019-07-04 08:28 | HP ---
HISTORY OF PRESENT ILLNESS: Amairani was admitted yesterday for a 6-day history of severe abdominal pain in her periumbilical area that radiates to her left mid abdomen. She said it is a stabbing pain associated with nausea, vomiting, diarrhea, and chills. She reports she has been unable to eat for about 6 days, but has been able to keep fluids down. REVIEW OF SYSTEMS: HEENT: Negative. NECK: Negative. RESPIRATORY: Denies any shortness of breath or cough. CARDIOVASCULAR: No chest pain, fast or irregular heart beat. GENITOURINARY: No UTI signs or symptoms. MUSCULOSKELETAL: No joint pain or swelling. SKIN: No rash. NEURO: No headache, dizziness or loss of coordination. PSYCHIATRIC: Negative for depression, anxiety or insomnia. Remainder of review of systems negative for any pertinent positives and negatives. MEDICATIONS: Albuterol 2 puffs inhalation every 4 hours p.r.n., Flonase 2 sprays in each nostril p.r.n., Mirena for control, loratadine 10 mg p.r.n., Zantac 150 mg b.i.d. p.r.n., clonazepam (Klonopin) 0.5 mg b.i.d. p.r.n., ibuprofen 800 mg q.6 hours p.r.n. pain, and Tylenol Extra Strength 1000 mg p.o. q.6 hours. PAST MEDICAL HISTORY: 1. Allergic rhinitis, glaucoma, impaired vision, and asthma. 2. GERD. 3. Arthritis. 4. Chronic headaches and migraine. 5. Psychiatric history, history of anxiety, depression and panic attacks. 6. Obesity, BMI 49. 7. Dermatology history; hidradenitis bilateral groin, bilateral buttocks. PAST SURGICAL HISTORY: Bilateral ear tubes, abdominal hernia repair, and surgery for hidradenitis, bilateral groin and bilateral breasts and buttocks. SOCIAL HISTORY: Single. Has 1 child. Does not smoke or drink alcohol. Occasional caffeine. FAMILY MEDICAL HISTORY: Positive for hypertension, asthma, anxiety, depression, diabetes type 1, and breast and liver cancer. PHYSICAL EXAMINATION: GENERAL: Amairani Kay is a pleasant 34-year-old female. VITAL SIGNS: Height is 5 feet 3 inches. Weight is 276 pounds. She is alert and orientated. TPR 96.3, 61, 16 and blood pressure is 122/67. HEENT: Negative. NECK: Supple. HEART: Regular rate and rhythm. LUNGS: Clear. ABDOMEN: Soft. There is tenderness in the periumbilical area radiating to the left mid abdomen. EXTREMITIES: Without peripheral edema. NEURO: Cranial nerves 2 through 12 intact. Deep tendon reflexes present. PSYCHIATRIC: Mood and affect appropriate. ASSESSMENT: 1. Recurrent incisional hernia. 2. Morbid obesity, BMI 49. 3. Chronic migraine headaches. PLAN: 1. Schedule and have consent signed for diagnostic laparoscopy possible open, repair of recurrent incisional hernia. General anesthesia, TAP block, ketamine bolus and ketamine infusion. Ancef 2 g IV on-call to OR. 2. Potassium 40 mEq IV now, Protonix 40 mg IV q.24 hours, incentive spirometer 10 times every hour while awake. 3. N.p.o. orders to be written postoperatively. Mary Marshall PA-C /[id number]
[2019-07-04] MEDS ORDERED: fentaNYL 250 MCG/5 ML SDV ONE (09:16)
[2019-07-04] MEDS ORDERED: Succinylcholine 200 MG/10 ML MDV ONE (09:17)
[2019-07-04] MEDS ORDERED: Rocuronium 50 MG/5 ML Vial ONE (09:17)
[2019-07-04] MEDS ORDERED: Propofol 200 MG/20 ML SDV ONE (09:17)
[2019-07-04] MEDS ORDERED: Ondansetron 4 MG/2 ML SDV ONE (09:17)
[2019-07-04] MEDS ORDERED: Glycopyrrolate 0.2 MG/ML 5 ML MDV ONE (09:17)
[2019-07-04] MEDS ORDERED: Dexamethasone 4 MG/ML SDV ONE (09:17)
[2019-07-04] MEDS ORDERED: Neostigmine Methylsulfate 1 MG/ML 5 ML Syringe ONE (09:17)
[2019-07-04] MEDS ORDERED: Meropenem 500 MG SDV ONE (10:52)
[2019-07-04] MEDS ORDERED: fentaNYL 100 MCG/2 ML SDV ONE (10:59)
[2019-07-04] MEDS ORDERED: ceFAZolin 2 GM in Premix Bag 1 BAG IV ONE (11:00)
[2019-07-04] MEDS ORDERED: Ketamine 50 MG in Sodium Chloride 0.9% 49.5 ML IV SCH (11:00)
[2019-07-04] MEDS ORDERED: hydrOXYzine HCl 100 MG/2 ML SDV IM ONE (11:52)
[2019-07-04] MEDS ORDERED: fentaNYL 100 MCG/2 ML SDV IVPUSH ONE (11:52)
[2019-07-04] MEDS: Potassium Chloride 20 MEQ, Lidocaine 1% 2 ML in Sodium Chloride 0.9% 100 ML IV SCH ×2 (12:35→14:26)
[2019-07-04] MEDS ORDERED: Albuterol/Ipratropium 3.0-0.5 MG/3 ML Neb Soln INH PRN (13:51)
[2019-07-04] MEDS: Acetaminophen/oxyCODONE 325-5 MG Tab PO PRN ×3 (14:25→22:41)
[2019-07-04] MEDS: Albuterol/Ipratropium 3.0-0.5 MG/3 ML Neb Soln INH SCH ×2 (14:46→20:41)
[2019-07-04] MEDS: Cyclobenzaprine 10 MG Tab PO PRN (16:02)
[2019-07-04] MEDS: ceFAZolin 2 GM in Premix Bag 1 BAG IV SCH (17:18)
[2019-07-04] MEDS ORDERED: Ondansetron 4 MG Tab.DIS PO PRN (17:25)
[2019-07-04] MEDS: ClonazePAM 0.5 MG Tab PO PRN (18:32)
[2019-07-04] MEDS: Dextrose 5%-Lactated Ringers 1,000 ML IV SCH (19:30)
[2019-07-04] MEDS: Ibuprofen 800 MG Tab PO PRN (20:41)
[2019-07-05] MEDS: Dextrose 5%-Lactated Ringers 1,000 ML IV SCH ×2 (02:13→09:17)
[2019-07-05] MEDS: ceFAZolin 2 GM in Premix Bag 1 BAG IV SCH ×2 (02:14→09:12)
[2019-07-05] MEDS: Acetaminophen/oxyCODONE 325-5 MG Tab PO PRN ×6 (02:59→23:37)
[2019-07-05] MEDS: Albuterol/Ipratropium 3.0-0.5 MG/3 ML Neb Soln INH SCH ×4 (07:17→22:12)
[2019-07-05] MEDS: Enoxaparin 40 MG/0.4 ML Syringe SUBCUT SCH (09:11)
[2019-07-05] MEDS: Pantoprazole 40 MG Vial IVPUSH SCH (09:11)
[2019-07-05] MEDS ORDERED: Dextrose 5%-Lactated Ringers 1,000 ML IV SCH (10:00)
[2019-07-05] MEDS: Cyclobenzaprine 10 MG Tab PO PRN (17:16)
[2019-07-05] MEDS: ClonazePAM 0.5 MG Tab PO PRN (19:37)
[2019-07-06] MEDS: Acetaminophen/oxyCODONE 325-5 MG Tab PO PRN ×3 (03:47→11:51)
[2019-07-06 06:52] VITALS: BP 130/83
[2019-07-06] MEDS: Ibuprofen 800 MG Tab PO PRN (07:02)
[2019-07-06] MEDS: Albuterol/Ipratropium 3.0-0.5 MG/3 ML Neb Soln INH SCH (07:07)
[2019-07-06] MEDS ORDERED: Pantoprazole 40 MG Tab.CR PO SCH (07:30)
--- NOTE | 2019-07-06 08:54 | DISCH ---
ADMISSION DIAGNOSES: 1. Abdominal pain. 2. Morbid obesity, BMI 45 to 49. 3. Gastroesophageal reflux disease. 4. History of hidradenitis suppurativa. 5. Anxiety. 6. Depression. 7. Arthritis. 8. Migraine headaches. DISCHARGE DIAGNOSES: Diagnostic laparoscopy with lysis of extensive adhesions: 1. Repair of recurrent incarcerated incisional hernia with mesh and repair of incarcerated left spigelian hernia with mesh and placement of Interceed mesh for incarcerated recurrent incisional hernia and recurrent left spigelian hernia and excision of extensive intraabdominal adhesions. Date of surgery: 07/04/2019. Surgeon: Ricky Beckham MD. HISTORY: Amairani Kay is a 34-year-old female who presented to the emergency room with abdominal pain. After preoperative evaluation and discussion of possible risks and possible complications, she wished to proceed with surgical procedure. HOSPITAL COURSE: Amairani had her surgery on 07/04/2019. She had no operative complications. On postoperative day #1, she was changed to oral pain medication. Her IV was discontinued. Her diet was advanced and she was able to shower. On postoperative day #2, vital signs were stable, pain was well managed, activity was good, and she was able to be discharged to home. PHYSICAL EXAMINATION: GENERAL: Amairani Kay is a pleasant 34-year-old female. VITAL SIGNS: Height is 5 feet 2.99 inches, weight is 276 pounds. TPR is 97.1, 83, 16, blood pressure 130/83. HEENT: Negative. NECK: Supple. HEART: Regular rate and rhythm. LUNGS: Clear. ABDOMEN: Adeola intact. Abdominal binder is on with pressure dressing over midline abdominal incision. EXTREMITIES: Without peripheral edema. DISPOSITION: Discharged to home. CONDITION: Stable and improving. FOLLOWUP APPOINTMENTS: With Mary Marshall PA-C, on 07/14/2019 at 10 a.m. HOME MEDICATIONS: 1. Percocet 5/325 mg one every 6 hours p.r.n. pain, #28. 2. Tylenol 1000 mg every 6 hours p.r.n. pain. 3. Albuterol sulfate, ProAir inhaler 2 puffs every 4 hours p.r.n. wheezing. 4. Klonopin/clonazepam 0.5 mg oral twice daily p.r.n. anxiety. 5. Flonase 2 sprays nasal daily in each sinus. 6. Motrin 800 mg every 6 hours p.r.n. pain. 7. Mirena IUD. 8. Loratadine 10 mg oral daily p.r.n. allergies. 9. Milk of magnesia 30 mL, 2 doses were sent home with the patient. 10.Multivitamin one capsule daily. 11.Zofran 4 mg every 8 hours p.r.n. nausea. 12.Ranitidine 150 mg oral b.i.d. p.r.n. abdominal pain, #60 with 4 refills. DIET: Usual diet as tolerated. Drink 8 to 10 glasses of water a day. ACTIVITY: No lifting greater than 10 pounds for 6 weeks. Driving: Do not drive for 1 week, while on pain medication. Shower/bathing: May shower. DISCHARGE INSTRUCTIONS: Notify provider if any fever, increased pain, nausea, vomiting. Keep site clean and dry. Wear pressure dressing rolled with Kerlix over hernia site and abdominal binder for 6 weeks and then as tolerated. SPECIAL INSTRUCTIONS: Use incentive spirometer 10 times every hour while awake.
[2019-07-06] MEDS: Enoxaparin 40 MG/0.4 ML Syringe SUBCUT SCH (09:15)
[2019-07-06] MEDS ORDERED: Magnesium Hydroxide 400 MG/5 ML Susp 30 ML Cup PO ONE (10:27)
--- NOTE | 2019-07-06 11:39 | PN ---
DATE OF SERVICE: 07/05/2019 The patient has been afebrile with stable vital signs. We will switch over to strictly oral pain medication today and see how that goes and Chacon catheter will be coming out and we will continue with regular diet and probably ready for discharge home tomorrow. Ricky Beckham MD /[id number]
--- NOTE | 2019-07-07 11:04 | OR ---
DATE OF PROCEDURE: 07/04/2019 SURGEON: Ricky Beckham MD PREOPERATIVE DIAGNOSIS: Incarcerated left spigelian hernia. POSTOPERATIVE DIAGNOSES: 1. Incarcerated left spigelian hernia. 2. Incarcerated recurrent incisional hernia adjacent to the previously placed mesh. 3. Extensive intraperitoneal adhesions. OPERATIVE PROCEDURES: Diagnostic laparoscopy with conversion to laparotomy with lysis of extensive and: 1. Repair of recurrent incarcerated incisional hernia with mesh ([id number]). 2. Repair of incarcerated left spigelian hernia ([id number]). 3. Placement of Interceed mesh to limit recurrent adhesion formation between underlying viscera and overlying mesh and adjacent pelvic wall. INDICATIONS: Potential risks including bleeding, infection, injury to underlying viscera, problems with hernias recurring and mesh becoming infected were gone over, and the patient wishes to proceed. DETAILS OF PROCEDURE: The patient was taken to the operating room and placed in a supine position. After general endotracheal anesthesia was induced, the abdomen was prepped and draped, after a Chacon catheter had been inserted. In the right lateral abdominal wall, a transverse incision was made and peritoneal cavity entered under direct vision with an Optiview trocar. It became immediately evident that there were quite dense adhesions at recently placed mesh in the central abdomen. One additional trocar was placed in the right lower quadrant to get a little broader visualization. Upon insufflation of the abdomen, there were no evident injuries related to the trocar insertion, but there were quite dense adhesions between the transverse colon and small bowel and the recently placed mesh. Given this, we elected at this point to proceed with an open approach as, with regard to potential bowel injury, the continuation of the laparoscopic approach appeared to be unsafe. The trocars were removed and peritoneal cavity deflated. An upper midline incision was then made and carried down through the skin and subcutaneous tissue. We originally entered the peritoneal cavity in a plane above the recently placed mesh, which was at this point free of adhesions. At that point, the upper 6 cm of the mesh was divided in the midline, and this allowed elevation of the mesh and the bowel was gradually dissected off this. This could be done predominantly bluntly. At this point with the patient's previous Interceed mesh appearing to preclude overly dense adhesion formation, this was combined with some electrocautery in the areas where there was omentum or fatty tissue such as appendix epiploica attached to the mesh. Once these adhesions were taken down, it became evidence there was an incarcerated left spigelian hernia, as noted on the preoperative CT scan. With external implosion and electrocautery, the hernia content, which was in appendix epiploica related to the sigmoid colon, was able to be reduced. The size of fascial defect was roughly the size of an index finger. The patient adjacent to that had some recurrence of the hernia underneath the mesh, which contained also some omentum and the edge of the sigmoid colon. This was likewise reduced. At that point, we elected to place an 11.4 circular mesh more or less between the 2 points of herniation. This was pulled up through a stab wound after a suture had been placed on the polypropylene side of the mesh. This was pulled up and then did cover up both of the new layers of herniation satisfactorily, and this was then affixed with OptiFix Titanium tacker. The mesh had been soaked in antibiotic-containing saline solution prior to it being placed. At this point, the repair appeared to be satisfactory. The abdomen was irrigated with the meropenem and Zyvox containing saline solution. The previously placed mesh was felt to be safe to leave in, as there was no bowel opening in this case. This mesh that had been divided was then closed with #0 Prolene stitch to provide some permanency, and over this, the midline fascia was approximated with #2 Vicryl stitch. Subcutaneous tissue was approximated with some 3-0 Vicryl stitch in 2 layers and skin with myla. Dressing was applied. Prior to closure, bilateral transversus abdominis plane blocks had been placed, and the fascia was also anesthetized with some 0.5% Marcaine. The patient was taken to the recovery room in satisfactory condition. There were no evident complications. Ricky Beckham MD /[id number]
== END 2019-07-06 12:07 | disposition home or self-care (01) | DRG 336 ==
LOC: JP.ED 19:13 → JP.MS 22:38 → OBSVTOIN 07-04 12:15
PROVIDERS: ADMIT Surgery; ATTEND Surgery
PROC: 0WUF0JZ Supplement Abdominal Wall with Synthetic Substitute, Open Approach (ICD-10-PCS; principal; 2019-07-04)
PROC: 0DNL0ZZ Release Transverse Colon, Open Approach (ICD-10-PCS; 2019-07-04)
PROC: 0WJF4ZZ Inspection of Abdominal Wall, Percutaneous Endoscopic Approach (ICD-10-PCS; 2019-07-04)
PROC: 3E0M05Z Introduction of Adhesion Barrier into Peritoneal Cavity, Open Approach (ICD-10-PCS; 2019-07-04)
DX: K43.0 Incisional hernia with obstruction, without gangrene (principal); Z68.42 Body mass index [BMI] 45.0-49.9, adult; K66.0 Peritoneal adhesions (postprocedural) (postinfection); Z53.31 Laparoscopic surgical procedure converted to open procedure; G43.909 Migraine, unspecified, not intractable, without status migrainosus; H54.7 Unspecified visual loss; J45.909 Unspecified asthma, uncomplicated; K21.9 Gastro-esophageal reflux disease without esophagitis; M19.90 Unspecified osteoarthritis, unspecified site; F32.9 Major depressive disorder, single episode, unspecified; F41.9 Anxiety disorder, unspecified; E66.9 Obesity, unspecified; Z88.8 Allergy status to other drugs, medicaments and biological substances; Z91.02 Food additives allergy status; Z91.040 Latex allergy status; Z79.899 Other long term (current) drug therapy
CPT/HCPCS: 36415; 74177; 80053; 81001; 81025; 83605; 83690; 85025; 94640; 96361; 96374; 96375; 96376; 99285-25; A9270-GY; C1781; C9113; G0378; J0171; J0330; J0690; J1100; J1170; J1650; J2001; J2020; J2185; J2405; J2704; J2710; J2795; J3010; J3410; J3480; J3490; J7030; J7042; J7050; J7120; J7620-GY

== ENCOUNTER 2019-08-01 10:41 | Emergency (ER) | payer MEDICAID ==
[2019-08-01 11:16] VITALS: BP 144/105; PULSE 85
--- NOTE | 2019-08-01 11:36 | EDM.PDOC ---
ED HPI GENERAL MEDICAL PROBLEM - General Chief Complaint: Back Pain or Injury Stated Complaint: LEFT LEG/HIP/GROIN PAIN Time Seen by Provider: 08/01/19 10:51 Source of Information: Reports: Patient History Limitations: Reports: No Limitations - History of Present Illness INITIAL COMMENTS - FREE TEXT/NARRATIVE: Amairani is a 34-year-old female who presents to the emergency department with complaints of left buttock pain that radiates to her left groin and down her left leg, has been progressive over the last week, denies any injury, heavy lifting or unusual activity although did just have a laparoscopic procedure done last month. Patient reports she has been healing well from this but did have her leg, left leg give out on her last night and she did catch herself on the counter and part of the scab on her abdominal incision did open minimally. Patient has been taking ibuprofen for her symptoms without any relief. Patient denies any occurrence of this in the past, any movement makes her symptoms worse. Onset: Gradual Onset Date: 07/25/19 Duration: Getting Worse Improves with: Reports: None Worsens with: Reports: Movement Treatments PICTURE ENGRAVER: Reports: NSAIDS Left Lower Back Pain Score (Numeric/FACES): 10 - Related Data Allergies Allergy/AdvReac Type Severity Reaction Status Date / Time naproxen Allergy Intermediate Hives Verified 07/03/19 23:50 coconut oil Allergy Other Verified 07/03/19 23:50 Latex, Natural Rubber Allergy Hives Verified 07/03/19 23:50 tramadol Allergy Hives Verified 07/03/19 23:50 Home Meds: Home Meds Albuterol Sulfate [Proair Hfa] 2 puff INH Q4H PRN 03/11/14 [History] Fluticasone Propionate [Flonase] 2 spray INGRID DAILY PRN 10/12/17 [History] Levonorgestrel [Mirena] 1 each IY ASDIRECTED 10/14/17 [History] Loratadine 10 mg PO DAILY PRN 10/14/17 [History] Ranitidine [Zantac] 150 mg PO BID PRN 10/14/17 [History] ClonazePAM [KlonoPIN] 0.5 mg PO BID PRN 07/25/18 [History] Ondansetron HCl [Ondansetron] 4 mg PO Q8H PRN 03/02/19 [History] Ibuprofen [Motrin] 800 mg PO Q6H PRN 04/11/19 [History] Acetaminophen [Tylenol Extra Strength] 1,000 mg PO Q6H PRN 07/03/19 [History] Multivitamin [Multivitamins] 1 cap PO DAILY 07/03/19 [History] Acetaminophen/oxyCODONE [Percocet 325-5 MG] 1 tab PO Q6H PRN #28 tablet [Rx] Magnesium Hydroxide [Milk of Magnesia] 30 ml PO DAILY PRN #2 ml 07/06/19 [Rx] raNITIdine HCl [Zantac] 150 mg PO BID #60 tablet 07/06/19 [Rx] Past Medical History HEENT History: Reports: Allergic Rhinitis, Glaucoma, Impaired Vision Other HEENT History: tubes in ears as young child. 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: Reports: , Other (See Below) Other SHOE DESIGNER History: IUD Musculoskeletal History: Reports: Arthritis Neurological History: Reports: Headaches, Chronic, Migraines Psychiatric History: Reports: Anxiety, Depression, Panic Attack Endocrine/Metabolic History: Reports: Obesity/BMI 30+ Dermatologic History: Reports: Other (See Below) Other Dermatologic History: hydradenitis bilat groin/bilat breast; buttocks - Infectious Disease History Infectious Disease History: Reports: Chicken Pox, MRSA - Past Surgical History HEENT Surgical History: Reports: Myringotomy w Tube(s) Respiratory Surgical History: Reports: None GI Surgical History: Reports: Hernia, Abdominal, Hernia Repair/Other Other GI Surgeries/Procedures: hernia repair Mar 30 2019 Endocrine Surgical History: Reports: None Neurological Surgical History: Reports: None Musculoskeletal Surgical History: Reports: None Dermatological Surgical History: Reports: None Social & Family History - Family History Family Medical History: Noncontributory Cardiac: Reports: Hypertension Respiratory: Reports: Asthma Psychiatric: Reports: Anxiety, Depression Endocrine/Metabolic: Reports: Diabetes, Type I Oncologic: Reports: Breast, Liver - Tobacco Use Smoking Status *Q: Never Smoker - Caffeine Use Caffeine Use: Reports: None Caffeine Use Comment: 1 pop/daily - Recreational Drug Use Recreational Drug Use: No ED ROS GENERAL - Review of Systems Review Of Systems: See Below ED EXAM,LOWER BACK PAIN/INJURY - Physical Exam Exam: See Below Exam Limited By: No Limitations General Appearance: Alert, WD/WN, Other (appears uncomfortable) Eye Exam: Bilateral Eye: EOMI Nose: Normal Inspection Head: Atraumatic Neck: Normal Inspection, Supple, Non-Tender Respiratory/Chest: No Respiratory Distress Cardiovascular: Regular Rate, Rhythm GI/Abdominal: Soft (Female) Exam: Deferred Rectal (Female) Exam: Deferred Back Exam: Normal Inspection, Other (tenderness to palpation to left buttock at sciatic nerve). No: Vertebral Tenderness Neurological: Alert, Normal Mood/Affect, CN II-XII Intact, Oriented x 3, Other ( pain with left leg raise and resistance ) Psychiatric: Normal Affect Skin Exam: Warm, Dry Lymphatic: No Adenopathy Course - Vital Signs Last Recorded V/S: Last Vital Signs Temp 36.9 C 08/01/19 11:17 Pulse 85 08/01/19 11:17 Resp 16 08/01/19 11:17 BP 144/105 H 08/01/19 11:17 Pulse Ox 100 08/01/19 11:17 Amairani is a 34-year-old female, history of obesity, recent laparoscopic procedure presents to the emergency department today with symptoms consistent with acute left-sided sciatica. Patient has no neural/focal deficits on exam. Patient's pain increases with left leg raise, resistance, sensation and strength are intact. Patient has no rash, she had a DVT rule out last week the ultrasound at her clinic. Patient has no significant swelling. Patient has tenderness to left buttock at point of sciatica. Given patient's progressive nature of symptoms I am going to put her on a 5 day prednisone burst course, I did discuss the possibility of delayed wound healing and although her wound is nearly healed she should keep a close eye on it. I also prescribed patient Robaxin for muscle spasms. Patient did ask for stronger pain medication, she is not currently on a pain contract and I did give her 12 tablets of Percocet. Narcotic safety and side effects were discussed in detail. I would like patient spoke with her primary care provider in the next week. Patient is agreeable to plan of care and discharged in stable condition. Departure - Departure Time of Disposition: 12:00 Disposition: Home, Self-Care 01 Condition: Fair Clinical Impression: Acute sciatica - Discharge Information Instructions: Sciatica Referrals: Sonal Javier DO [Primary Care Provider] - Additional Instructions: Start Prednisone today. You can continue with Ibuprofen, Percocet for severe pain, do not drive if you take this. Robaxin for muscle spasm do not drive until you know how this makes you feel. Follow up in clinic for re-evaluation next week. Make sure you are continuing with good wound care/dressing changes.
== END 2019-08-01 11:43 | disposition home or self-care (01) ==
LOC: JP.ED 10:41
DX: M54.42 Lumbago with sciatica, left side (principal); J45.909 Unspecified asthma, uncomplicated; K21.9 Gastro-esophageal reflux disease without esophagitis; F41.9 Anxiety disorder, unspecified; F32.9 Major depressive disorder, single episode, unspecified; Z91.040 Latex allergy status; Z88.8 Allergy status to other drugs, medicaments and biological substances; Z91.018 Allergy to other foods; Z88.5 Allergy status to narcotic agent; Z79.899 Other long term (current) drug therapy
CPT/HCPCS: 99283

== ENCOUNTER 2019-09-01 09:37 | Emergency (ER) | payer MEDICAID ==
[2019-09-01] MEDS ORDERED: Ondansetron 4 MG Tab.DIS PO ONE (10:32)
[2019-09-01] MEDS ORDERED: hydrOXYzine HCl 100 MG/2 ML SDV IM ONE (10:32)
[2019-09-01] MEDS ORDERED: Atropine/Diphenoxylate 0.025-2.5 MG Tab PO ONE (10:37)
--- NOTE | 2019-09-01 10:39 | EDM.PDOC ---
ED HPI GENERAL MEDICAL PROBLEM - General Chief Complaint: Abdominal Pain Stated Complaint: PAIN IN ABD, LIGHT HEADED Time Seen by Provider: 09/01/19 10:25 Source of Information: Reports: Patient, Old Records, RN History Limitations: Reports: No Limitations - History of Present Illness INITIAL COMMENTS - FREE TEXT/NARRATIVE: 34 yo female was seen early in the week by Mary Marshall for LLQ abdominal pain. A CT scan was suggestive of an ovarian cyst as the cause of her pain. She is taking ibuprofen and acetaminophen with partial pain relief. Has developed diarrhea since the onset of her abdominal pain. No blood in the urine. No fever. Awoke today with severe vertigo associated with nausea and vomiting. Is taking Zofran without much relief of her nausea. Onset: Today (of vertigo with vomiting) Onset Date: 09/01/19 Duration: Hour(s):, Constant Location: Reports: Head (vertigo), Abdomen (LLQ pain) Quality: Reports: Ache (abdominal pain) Severity: Moderate Improves with: Reports: Medication Worsens with: Reports: Other (? progression of her cyst) Context: Reports: Other (see HPI) Associated Symptoms: Reports: Nausea/Vomiting, Other (diarrhea). Denies: Fever/ Chills Treatments REGULATORY SUBMISSIONS SPECIALIST: Reports: Acetaminophen, NSAIDS, Other (see below) (Zofran ODT 4 mg) Left Abdomen Pain Score (Numeric/FACES): 9 - Related Data Allergies Allergy/AdvReac Type Severity Reaction Status Date / Time naproxen Allergy Intermediate Hives Verified 09/01/19 10:11 coconut oil Allergy Other Verified 09/01/19 10:11 Latex, Natural Rubber Allergy Hives Verified 09/01/19 10:11 tramadol Allergy Hives Verified 09/01/19 10:11 Home Meds: Home Meds Albuterol Sulfate [Proair Hfa] 2 puff INH Q4H PRN 03/11/14 [History] Fluticasone Propionate [Flonase] 2 spray INGRID DAILY PRN 10/12/17 [History] Loratadine 10 mg PO DAILY PRN 10/14/17 [History] ClonazePAM [KlonoPIN] 0.5 mg PO BID PRN 07/25/18 [History] Ondansetron HCl [Ondansetron] 4 mg PO Q8H PRN 03/02/19 [History] Ibuprofen [Motrin] 800 mg PO Q6H PRN 04/11/19 [History] Acetaminophen [Tylenol Extra Strength] 1,000 mg PO Q6H PRN 07/03/19 [History] Multivitamin [Multivitamins] 1 cap PO DAILY 07/03/19 [History] Magnesium Hydroxide [Milk of Magnesia] 30 ml PO DAILY PRN #2 ml 07/06/19 [Rx] raNITIdine HCl [Zantac] 150 mg PO BID #60 tablet 07/06/19 [Rx] Past Medical History HEENT History: Reports: Allergic Rhinitis, Glaucoma, Impaired Vision Other HEENT History: tubes in ears as young child. 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 History: IUD Musculoskeletal History: Reports: Arthritis Neurological History: Reports: Headaches, Chronic, Migraines Psychiatric History: Reports: Anxiety, Depression, Panic Attack Endocrine/Metabolic History: Reports: Obesity/BMI 30+ Dermatologic History: Reports: Other (See Below) Other Dermatologic History: hydradenitis bilat groin/bilat breast; buttocks - Infectious Disease History Infectious Disease History: Reports: Chicken Pox, MRSA - Past Surgical History HEENT Surgical History: Reports: Myringotomy w Tube(s) GI Surgical History: Reports: Hernia, Abdominal, Hernia Repair/Other Other GI Surgeries/Procedures: hernia repair Mar 30 2019 Dermatological Surgical History: Reports: None Social & Family History - Family History Family Medical History: Noncontributory Cardiac: Reports: Hypertension Respiratory: Reports: Asthma Psychiatric: Reports: Anxiety, Depression Endocrine/Metabolic: Reports: Diabetes, Type I Oncologic: Reports: Breast, Liver - Tobacco Use Smoking Status *Q: Never Smoker - Caffeine Use Caffeine Use: Reports: Soda Other Caffeine Use: 1 pop per day. Caffeine Use Comment: 1 pop/daily - Recreational Drug Use Recreational Drug Use: No ED ROS GENERAL - Review of Systems Review Of Systems: See Below Constitutional: Reports: No Symptoms HEENT: Reports: Vision Change (room spinning) Respiratory: Reports: No Symptoms Cardiovascular: Reports: No Symptoms Endocrine: Reports: No Symptoms GI/Abdominal: Reports: Abdominal Pain (LLQ), Anorexia, Diarrhea, Decreased Appetite, Nausea, Vomiting. Denies: Black Stool, Bloody Stool, Constipation, Distension, Flatus, Hematemesis, Hematochezia, Melena : Reports: No Symptoms Musculoskeletal: Reports: No Symptoms Skin: Reports: No Symptoms Neurological: Reports: Dizziness (vertigo) ED EXAM, GI/ABD - Physical Exam Exam: See Below Exam Limited By: No Limitations General Appearance: Alert, WD/WN, No Apparent Distress, Obese Eyes: Bilateral: Nystagmus (worse to R) Ears: Normal External Exam, Normal Canal, Hearing Grossly Normal Nose: Normal Inspection, No Blood Throat/Mouth: Normal Inspection, Normal Lips, Normal Oropharynx, Normal Voice, No Airway Compromise Head: Atraumatic, Normocephalic Neck: Normal Inspection Respiratory/Chest: No Respiratory Distress, Lungs Clear, Normal Breath Sounds, No Accessory Muscle Use Cardiovascular: Regular Rate, Rhythm, No Edema GI/Abdominal Exam: Normal Bowel Sounds, Soft, No Distention, Tender (LLQ). No: Distended, Guarding, Rigid, Rebound Back Exam: Normal Inspection. No: CVA Tenderness (R), CVA Tenderness (L) Extremities: Normal Inspection, Normal Range of Motion, Non-Tender, No Pedal Edema Neurological: Alert, Oriented, CN II-XII Intact, Normal Cognition, No Motor/ Sensory Deficits Psychiatric: Normal Affect, Normal Mood Skin Exam: Warm, Dry, Intact, Normal Color, No Rash Course - Vital Signs Last Recorded V/S: Last Vital Signs Temp 37.1 C 09/01/19 10:08 Pulse 71 09/01/19 11:27 Resp 18 09/01/19 11:27 BP 126/75 09/01/19 11:27 Pulse Ox 94 L 09/01/19 11:27 - Orders/Labs/Meds Labs: Laboratory Tests 09/01/19 09/01/19 Range/Units 10:34 10:36 WBC 7.5 (4.5-11.0) K/uL RBC 4.72 (3.30-5.50) M/uL Hgb 14.1 (12.0-15.0) g/dL Hct 43.1 (36.0-48.0) % MCV 91 (80-98) fL MCH 30 (27-31) pg MCHC 33 (32-36) % Plt Count 270 (150-400) K/uL Urine Color Yellow (YELLOW) Urine Appearance Clear (CLEAR) Urine pH 7.0 (5.0-8.0) Ur Specific [place] 1.020 (1.008-1.030) Urine Protein Negative (NEGATIVE) mg/dL Urine Glucose (UA) Negative (NEGATIVE) mg/dL Urine Ketones Negative (NEGATIVE) mg/dL Urine Occult Blood Negative (NEGATIVE) Urine Nitrite Negative (NEGATIVE) Urine Bilirubin Negative (NEGATIVE) Urine Urobilinogen 0.2 (0.2-1.0) EU/dL Ur Leukocyte Esterase Negative (NEGATIVE) Urine RBC Not seen (0-5) Urine WBC Not seen (0-5) Ur Epithelial Cells Few Amorphous Sediment Moderate Urine Bacteria Few Urine Mucus Not seen Meds: Medications Discontinued Medications Generic Name Dose Route Start Last Admin Trade Name Freq PRN Reason Stop Dose Admin Diphenoxylate HCl/Atropine 2 tab 09/01/19 10:37 09/01/19 11:22 Lomotil 0.025-2.5 Mg PO 09/01/19 10:38 2 tab ONETIME ONE Administration Hydroxyzine HCl 75 mg 09/01/19 10:32 09/01/19 11:21 Vistaril IM 09/01/19 10:33 75 mg ONETIME ONE Administration Ondansetron HCl 4 mg 09/01/19 10:32 09/01/19 11:22 Zofran Odt PO 09/01/19 10:33 4 mg ONETIME ONE Administration Departure - Departure Time of Disposition: 12:20 Disposition: Home, Self-Care 01 Condition: Good Clinical Impression: Vertigo Ovarian cyst Qualifiers: Laterality: left Qualified Code(s): N83.202 - Unspecified ovarian cyst, left side Nausea and vomiting Qualifiers: Vomiting type: unspecified Vomiting Intractability: non-intractable Qualified Code(s): R11.2 - Nausea with vomiting, unspecified - Discharge Information *PRESCRIPTION DRUG MONITORING PROGRAM REVIEWED*: No *COPY OF PRESCRIPTION DRUG MONITORING REPORT IN PATIENT KERRI: No Instructions: Vertigo, [id number] Referrals: Sonal Javier DO [Primary Care Provider] - Forms: ED Department Discharge Additional Instructions: Take meclizine every 6 hrs as needed for vertigo. No driving today. Take acetaminophen and/or ibuprofen as needed for your ovarian cyst pain. Recheck as needed.
[2019-09-01 11:28] VITALS: BP 126/75; PULSE 71
== END 2019-09-01 12:41 | disposition home or self-care (01) ==
LOC: JP.ED 09:37
DX: R42 Dizziness and giddiness (principal); N83.202 Unspecified ovarian cyst, left side; R11.2 Nausea with vomiting, unspecified; E66.9 Obesity, unspecified; K21.9 Gastro-esophageal reflux disease without esophagitis; J45.909 Unspecified asthma, uncomplicated; Z79.899 Other long term (current) drug therapy; Z88.6 Allergy status to analgesic agent; Z91.040 Latex allergy status; Z88.5 Allergy status to narcotic agent; Z91.018 Allergy to other foods; Z68.42 Body mass index [BMI] 45.0-49.9, adult
CPT/HCPCS: 36415; 81001; 85027; 96372; 99284; A9270; J3410

== ENCOUNTER 2019-09-08 22:01 | Emergency (ER) | payer MEDICAID ==
[2019-09-08 22:17] VITALS: BP 150/104; PULSE 92
[2019-09-08] MEDS ORDERED: Ketorolac 60 MG/2 ML SDV IM ONE (22:59)
[2019-09-08] MEDS ORDERED: hydrOXYzine HCl 100 MG/2 ML SDV IM ONE (22:59)
--- NOTE | 2019-09-08 23:09 | EDM.PDOC ---
ED HPI GENERAL MEDICAL PROBLEM - General Chief Complaint: Abdominal Pain Stated Complaint: SEVERE ABDOMINAL PAIN Time Seen by Provider: 09/08/19 22:55 Source of Information: Reports: Patient, Old Records, RN History Limitations: Reports: No Limitations - History of Present Illness INITIAL COMMENTS - FREE TEXT/NARRATIVE: 34 yo female followed for a few weeks for a R ovarian cyst returns to the ER for increased pain with nausea and vomiting. Has no change in bowel or bladder sx's. Has Zofran that she took for nausea without relief. Took ibuprofen 800 mg at 6 pm tonight with a slight reduction in the pain only. No fever. Onset: Gradual Duration: Week(s):, Waxing/Waning Location: Reports: Abdomen (LLQ), Pelvis (L hemipelvis) Quality: Reports: Pressure Severity: Severe Improves with: Reports: Medication Worsens with: Reports: Other (? time) Context: Reports: Other (See HPI) Associated Symptoms: Reports: Nausea/Vomiting. 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: NSAIDS Left Lower Abdominal Pain Score (Numeric/FACES): 10 - Related Data Allergies Allergy/AdvReac Type Severity Reaction Status Date / Time naproxen Allergy Intermediate Hives Verified 09/08/19 22:20 coconut oil Allergy Other Verified 09/08/19 22:20 Latex, Natural Rubber Allergy Hives Verified 09/08/19 22:20 tramadol Allergy Hives Verified 09/08/19 22:20 Home Meds: Home Meds Albuterol Sulfate [Proair Hfa] 2 puff INH Q4H PRN 03/11/14 [History] Fluticasone Propionate [Flonase] 2 spray INGRID DAILY PRN 10/12/17 [History] Loratadine 10 mg PO DAILY PRN 10/14/17 [History] ClonazePAM [KlonoPIN] 0.5 mg PO BID PRN 07/25/18 [History] Ondansetron HCl [Ondansetron] 4 mg PO Q8H PRN 03/02/19 [History] Ibuprofen [Motrin] 800 mg PO Q6H PRN 04/11/19 [History] Acetaminophen [Tylenol Extra Strength] 1,000 mg PO Q6H PRN 07/03/19 [History] Multivitamin [Multivitamins] 1 cap PO DAILY 07/03/19 [History] Magnesium Hydroxide [Milk of Magnesia] 30 ml PO DAILY PRN #2 ml 07/06/19 [Rx] raNITIdine HCl [Zantac] 150 mg PO BID #60 tablet 07/06/19 [Rx] Meclizine [Antivert] 25 mg PO Q6H PRN #30 tab.chew 09/01/19 [Rx] Past Medical History HEENT History: Reports: Allergic Rhinitis, Glaucoma, Impaired Vision Other HEENT History: tubes in ears as young child. 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 COMPUTER TECH History: IUD Musculoskeletal History: Reports: Arthritis Neurological History: Reports: Headaches, Chronic, Migraines Psychiatric History: Reports: Anxiety, Depression, Panic Attack Endocrine/Metabolic History: Reports: Obesity/BMI 30+ Dermatologic History: Reports: Other (See Below) Other Dermatologic History: hydradenitis bilat groin/bilat breast; buttocks - Infectious Disease History Infectious Disease History: Reports: Chicken Pox - Past Surgical History HEENT Surgical History: Reports: Myringotomy w Tube(s) GI Surgical History: Reports: Hernia, Abdominal, Hernia Repair/Other Other GI Surgeries/Procedures: hernia repair Mar 30 2019, hernia repair july 04 2019 Dermatological Surgical History: Reports: None Social & Family History - Family History Family Medical History: Noncontributory Cardiac: Reports: Hypertension Respiratory: Reports: Asthma Psychiatric: Reports: Anxiety, Depression Endocrine/Metabolic: Reports: Diabetes, Type I Oncologic: Reports: Breast, Liver - Tobacco Use Smoking Status *Q: Never Smoker - Caffeine Use Caffeine Use: Reports: Soda Other Caffeine Use: 1 pop per day. Caffeine Use Comment: 1 pop/daily - Recreational Drug Use Recreational Drug Use: No ED ROS GENERAL - Review of Systems Review Of Systems: See Below Constitutional: Reports: No Symptoms HEENT: Reports: No Symptoms Respiratory: Reports: No Symptoms Cardiovascular: Reports: No Symptoms GI/Abdominal: Reports: Abdominal Pain, Nausea, Vomiting. Denies: Black Stool, Bloody Stool, Constipation, Diarrhea, Distension, Flatus, Hematemesis, Hematochezia, Melena : Denies: Dysuria, Frequency, Hematuria Skin: Reports: No Symptoms Neurological: Reports: No Symptoms ED EXAM, GI/ABD - Physical Exam Exam: See Below Exam Limited By: No Limitations General Appearance: Alert, WD/WN, No Apparent Distress, Obese Eyes: Bilateral: Nystagmus (chronic per patient) Ears: Normal External Exam, Hearing Grossly Normal Nose: Normal Inspection, No Blood Throat/Mouth: Normal Inspection, Normal Lips, Normal Oropharynx, Normal Voice, No Airway Compromise Head: Atraumatic, Normocephalic Neck: Normal Inspection Respiratory/Chest: No Respiratory Distress, Lungs Clear, Normal Breath Sounds, No Accessory Muscle Use Cardiovascular: Regular Rate, Rhythm, No Edema GI/Abdominal Exam: Normal Bowel Sounds, Soft, No Distention, Tender (L hemipelvis). No: Distended, Rigid, Rebound, Abnormal Bowel Sounds, Hernia Back Exam: Normal Inspection Extremities: Normal Inspection, Normal Range of Motion, Non-Tender, No Pedal Edema Neurological: Alert, Oriented, CN II-XII Intact, Normal Cognition Psychiatric: Normal Affect, Normal Mood Skin Exam: Warm, Dry, Intact, Normal Color, No Rash Course - Vital Signs Last Recorded V/S: Last Vital Signs Temp 36.4 C 09/08/19 22:22 Pulse 92 09/08/19 22:22 Resp 16 09/08/19 22:22 BP 150/104 H 09/08/19 22:22 Pulse Ox 98 09/08/19 22:22 Orthostatic Blood Pressure [ 128/89 Standing] Orthostatic Blood Pressure [ 142/82 Sitting] Orthostatic Blood Pressure [ 138/76 Supine] - Orders/Labs/Meds Orders: Active Orders 24 hr Category Date Time Status Orthostatic Vital Signs [RC] ASDIRECTED Care 09/08/19 23:00 Active Labs: Laboratory Tests 09/08/19 09/08/19 09/08/19 Range/Units 23:10 23:10 23:37 WBC 7.3 (4.5-11.0) K/uL RBC 4.41 (3.30-5.50) M/uL Hgb 13.0 (12.0-15.0) g/dL Hct 40.1 (36.0-48.0) % MCV 91 (80-98) fL MCH 30 (27-31) pg MCHC 32 (32-36) % Plt Count 267 (150-400) K/uL Sodium 142 (140-148) mmol/L Potassium 3.7 (3.6-5.2) mmol/L Chloride 106 (100-108) mmol/L Carbon Dioxide 26 (21-32) mmol/L Anion Gap 10.5 (5.0-14.0) mmol/L BUN 10 (7-18) mg/dL Creatinine 0.8 (0.6-1.0) mg/dL Est Cr Clr Drug Dosing 82.74 mL/min Estimated GFR (MDRD) > 60 (>60) Glucose 105 (74-106) mg/dL Calcium 8.7 (8.5-10.1) mg/dL C-Reactive Protein 0.50 H (0.0-0.3) mg/dL Urine Color Yellow (YELLOW) Urine Appearance Slightly cloudy A (CLEAR) Urine pH 6.0 (5.0-8.0) Ur Specific [place] >= 1.030 (1.008-1.030) Urine Protein Negative (NEGATIVE) mg/dL Urine Glucose (UA) Negative (NEGATIVE) mg/dL Urine Ketones Negative (NEGATIVE) mg/dL Urine Occult Blood Moderate H (NEGATIVE) Urine Nitrite Negative (NEGATIVE) Urine Bilirubin Negative (NEGATIVE) Urine Urobilinogen 0.2 (0.2-1.0) EU/dL Ur Leukocyte Esterase Negative (NEGATIVE) Urine RBC 10-20 H (0-5) Urine WBC 0-5 (0-5) Ur Epithelial Cells Moderate Amorphous Sediment Moderate Urine Bacteria Not seen Urine Mucus Many Urine HCG, Qual 09/08/19 Range/Units 23:37 WBC (4.5-11.0) K/uL RBC (3.30-5.50) M/uL Hgb (12.0-15.0) g/dL Hct (36.0-48.0) % MCV (80-98) fL MCH (27-31) pg MCHC (32-36) % Plt Count (150-400) K/uL Sodium (140-148) mmol/L Potassium (3.6-5.2) mmol/L Chloride (100-108) mmol/L Carbon Dioxide (21-32) mmol/L Anion Gap (5.0-14.0) mmol/L BUN (7-18) mg/dL Creatinine (0.6-1.0) mg/dL Est Cr Clr Drug Dosing mL/min Estimated GFR (MDRD) (>60) Glucose (74-106) mg/dL Calcium (8.5-10.1) mg/dL C-Reactive Protein (0.0-0.3) mg/dL Urine Color (YELLOW) Urine Appearance (CLEAR) Urine pH (5.0-8.0) Ur Specific [place] (1.008-1.030) Urine Protein (NEGATIVE) mg/dL Urine Glucose (UA) (NEGATIVE) mg/dL Urine Ketones (NEGATIVE) mg/dL Urine Occult Blood (NEGATIVE) Urine Nitrite (NEGATIVE) Urine Bilirubin (NEGATIVE) Urine Urobilinogen (0.2-1.0) EU/dL Ur Leukocyte Esterase (NEGATIVE) Urine RBC (0-5) Urine WBC (0-5) Ur Epithelial Cells Amorphous Sediment Urine Bacteria Urine Mucus Urine HCG, Qual Negative Meds: Medications Discontinued Medications Generic Name Dose Route Start Last Admin Trade Name Margret PRN Reason Stop Dose Admin Hydroxyzine HCl 100 mg 09/08/19 22:59 09/08/19 23:05 Vistaril IM 09/08/19 23:00 100 mg ONETIME ONE Administration Lactated Ringer's 1,000 mls @ 1,000 mls/hr 09/08/19 23:52 09/09/19 00:04 Ringers, Lactated IV 09/09/19 00:51 1,000 mls/hr BOLUS ONE Administration Ketorolac Tromethamine 60 mg 09/08/19 22:59 09/08/19 23:05 Toradol IM 09/08/19 23:00 60 mg ONETIME ONE Administration Departure - Departure Time of Disposition: 01:15 Disposition: Home, Self-Care 01 Condition: Fair Clinical Impression: Mild dehydration Ovarian cyst Qualifiers: Laterality: left Qualified Code(s): N83.202 - Unspecified ovarian cyst, left side Nausea and vomiting Qualifiers: Vomiting type: unspecified Vomiting Intractability: non-intractable Qualified Code(s): R11.2 - Nausea with vomiting, unspecified - Discharge Information *PRESCRIPTION DRUG MONITORING PROGRAM REVIEWED*: No *COPY OF PRESCRIPTION DRUG MONITORING REPORT IN PATIENT KERRI: No Referrals: Sonal Javier DO [Primary Care Provider] - Forms: ED Department Discharge Additional Instructions: Use [place] for pain relief as needed. Continue your Zofran as needed for nausea control. Recheck with your provider to see if you need an COMPUTER TECH referral for this persisting cyst. - My Orders Last 24 Hours: My Active Orders 09/08/19 23:00 Orthostatic Vital Signs [RC] ASDIRECTED - Assessment/Plan Last 24 Hours: My Active Orders 09/08/19 23:00 Orthostatic Vital Signs [RC] ASDIRECTED
[2019-09-08] MEDS ORDERED: Lactated Ringers 1,000 ML IV ONE (23:52)
== END 2019-09-09 01:16 | disposition home or self-care (01) ==
LOC: JP.ED 22:01
DX: E86.0 Dehydration (principal); N83.202 Unspecified ovarian cyst, left side; J45.909 Unspecified asthma, uncomplicated; E66.9 Obesity, unspecified; F32.9 Major depressive disorder, single episode, unspecified; F41.9 Anxiety disorder, unspecified; Z88.6 Allergy status to analgesic agent; Z91.018 Allergy to other foods; Z68.42 Body mass index [BMI] 45.0-49.9, adult; Z91.040 Latex allergy status; Z79.899 Other long term (current) drug therapy
CPT/HCPCS: 36415; 80048; 81001; 81025; 85027; 86140; 96360; 96372; 99284; J1885; J3410; J7120

== ENCOUNTER 2019-11-20 22:26 | Emergency (ER) | payer MEDICAID ==
[2019-11-20 22:40] VITALS: BP 149/88; PULSE 94
--- NOTE | 2019-11-20 23:03 | EDM.PDOC ---
ED HPI GENERAL MEDICAL PROBLEM - General Stated Complaint: HERNIA Time Seen by Provider: 11/20/19 22:45 Source of Information: Reports: Patient History Limitations: Reports: No Limitations - History of Present Illness INITIAL COMMENTS - FREE TEXT/NARRATIVE: 34-year-old female with several abdominal surgeries and recurrent ventral hernias presents with left abdominal pain for the past 3 days. It is very localized, and she is developing some mild peritoneal irritation as it is painful when she moves or coughs. Bowels are moving, she has diarrhea, no fevers or chills. Denies nausea or vomiting. Pain is similar to past episodes of incarcerated hernias. Pain location is appropriate for spigelian hernia. This has been diagnosed in this patient in the past. Onset: Gradual (Over the past 3 days) Location: Reports: Abdomen (Left lower abdomen) Worsens with: Reports: Other (Coughing or palpation of the area is tender), Movement LUQ Pain Score (Numeric/FACES): 8 - Related Data Allergies Allergy/AdvReac Type Severity Reaction Status Date / Time naproxen Allergy Intermediate Hives Verified 11/20/19 23:10 coconut oil Allergy Other Verified 11/20/19 23:10 Latex, Natural Rubber Allergy Hives Verified 11/20/19 23:10 tramadol Allergy Hives Verified 11/20/19 23:10 Home Meds: Home Meds Albuterol Sulfate [Proair Hfa] 2 puff INH Q4H PRN 03/11/14 [History] Fluticasone Propionate [Flonase] 2 spray INGRID DAILY PRN 10/12/17 [History] Loratadine 10 mg PO DAILY PRN 10/14/17 [History] ClonazePAM [KlonoPIN] 0.5 mg PO BID 07/25/18 [History] Ibuprofen [Motrin] 800 mg PO Q6H PRN 04/11/19 [History] Acetaminophen [Tylenol Extra Strength] 1,000 mg PO Q6H PRN 07/03/19 [History] Multivitamin [Multivitamins] 1 cap PO DAILY 07/03/19 [History] Magnesium Hydroxide [Milk of Magnesia] 30 ml PO DAILY PRN #2 ml 07/06/19 [Rx] Meclizine [Antivert] 25 mg PO Q6H PRN #30 tab.chew 09/01/19 [Rx] Cannabidiol (Cbd) Extract [Cannabis (Medical)] 5 mg PO DAILY PRN 11/20/19 [ History] Norethindrone-Ethinyl Estrad [Alyacen 7-7-7-28 Tablet] 1 tab PO DAILY 11/20/19 [ History] Past Medical History HEENT History: Reports: Allergic Rhinitis, Glaucoma, Impaired Vision Other HEENT History: tubes in ears as young child. 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 Musculoskeletal History: Reports: Arthritis Neurological History: Reports: Headaches, Chronic, Migraines Psychiatric History: Reports: Anxiety, Depression, Panic Attack Endocrine/Metabolic History: Reports: Obesity/BMI 30+ Dermatologic History: Reports: Other (See Below) Other Dermatologic History: hydradenitis bilat groin/bilat breast; buttocks - Infectious Disease History Infectious Disease History: Reports: Chicken Pox - Past Surgical History HEENT Surgical History: Reports: Myringotomy w Tube(s) GI Surgical History: Reports: Hernia, Abdominal, Hernia Repair/Other Other GI Surgeries/Procedures: hernia repair Mar 30 2019, hernia repair july 04 2019 Dermatological Surgical History: Reports: None Social & Family History - Family History Family Medical History: Noncontributory Cardiac: Reports: Hypertension Respiratory: Reports: Asthma Psychiatric: Reports: Anxiety, Depression Endocrine/Metabolic: Reports: Diabetes, Type I Oncologic: Reports: Breast, Liver - Caffeine Use Caffeine Use: Reports: Soda Other Caffeine Use: 1 pop per day. Caffeine Use Comment: 1 pop/daily ED ROS GENERAL - Review of Systems Review Of Systems: See Below Constitutional: Reports: Malaise. Denies: Fever, Chills HEENT: Reports: No Symptoms Respiratory: Denies: Shortness of Breath Cardiovascular: Denies: Chest Pain GI/Abdominal: Reports: Abdominal Pain, Diarrhea. Denies: Nausea, Vomiting Skin: Reports: No Symptoms Neurological: Denies: Headache ED EXAM, GI/ABD - Physical Exam Exam: See Below Exam Limited By: No Limitations General Appearance: Alert, No Apparent Distress (Looks uncomfortable but not distressed) Eyes: Right: Normal Appearance (Well-hydrated, crying tears, no jaundice) Respiratory/Chest: No Respiratory Distress, Lungs Clear Cardiovascular: Regular Rate, Rhythm GI/Abdominal Exam: Soft, Tender (Patient has localized tenderness to the left of the periumbilical area of the lower abdomen, no mass felt however the patient is significantly obese.) Neurological: Alert, Oriented Skin Exam: Warm, Dry Course - Vital Signs Last Recorded V/S: Last Vital Signs Temp 97.6 F 11/20/19 23:09 Pulse 94 11/20/19 23:09 Resp 20 11/20/19 23:09 BP 149/88 H 11/20/19 23:09 Pulse Ox 99 11/20/19 23:09 - Orders/Labs/Meds Labs: Laboratory Tests 11/20/19 11/20/19 11/20/19 Range/Units 23:05 23:05 23:05 WBC 10.2 (4.5-11.0) K/uL RBC 4.44 (3.30-5.50) M/uL Hgb 13.6 (12.0-15.0) g/dL Hct 40.6 (36.0-48.0) % MCV 91 (80-98) fL MCH 31 (27-31) pg MCHC 34 (32-36) % Plt Count 288 (150-400) K/uL Neut % (Auto) 64 (36-66) % Lymph % (Auto) 26 (24-44) % [place] % (Auto) 7 H (2-6) % Eos % (Auto) 3 (2-4) % Baso % (Auto) 0 (0-1) % Sodium 136 L (140-148) mmol/L Potassium 3.5 L (3.6-5.2) mmol/L Chloride 101 (100-108) mmol/L Carbon Dioxide 27 (21-32) mmol/L Anion Gap 11.5 (5.0-14.0) mmol/L BUN 8 (7-18) mg/dL Creatinine 0.8 (0.6-1.0) mg/dL Est Cr Clr Drug Dosing 82.74 mL/min Estimated GFR (MDRD) > 60 (>60) Glucose 108 H (74-106) mg/dL Lactic Acid 1.1 (0.4-2.0) mmol/L Calcium 8.8 (8.5-10.1) mg/dL Total Bilirubin 0.4 (0.2-1.0) mg/dL AST 17 (15-37) U/L ALT 29 (12-78) U/L Alkaline Phosphatase 59 (46-116) U/L Total Protein 7.6 (6.4-8.2) g/dL Albumin 3.7 (3.4-5.0) g/dL Globulin 3.9 H (2.3-3.5) g/dL Albumin/Globulin Ratio 1.0 L (1.2-2.2) Amylase 35 (25-115) U/L Lipase 57 L (73-393) U/L Meds: Medications Discontinued Medications Generic Name Dose Route Start Last Admin Trade Name Freq PRN Reason Stop Dose Admin Hydromorphone HCl 0.5 mg 11/20/19 23:25 11/20/19 23:32 Dilaudid IVPUSH 11/20/19 23:26 0.5 mg ONETIME ONE Administration Sodium Chloride 1,000 mls @ 500 mls/hr 11/20/19 23:15 11/20/19 23:17 Normal Saline IV 500 mls/hr ASDIRECTED CHITRA Administration Sodium Chloride 85 mls @ 4 mls/sec 11/20/19 23:35 11/20/19 23:43 Normal Saline IV 11/20/19 23:36 4 mls/sec ASDIRECTED STA Administration Iopamidol 150 ml 11/20/19 23:35 11/20/19 23:43 Isovue-300 (61%) IV 11/20/19 23:36 150 ml . DIRECTED STA Administration - Re-Assessments/Exams Free Text/Narrative Re-Assessment/Exam: 11/20/19 23:09 CBC, CMP, lactic acid, amylase and lipase were obtained and hydration was begun with normal saline at 500 cc an hour. Anticipate needing an IV enhanced abdominal CT scan. Patient claims it is impossible for her to be at this time. 11/20/19 23:44 Labs are reassuring, white count is normal, lactic acid normal and kidney function excellent. CT was ordered. She was given 0.5 mg of IV Dilaudid for pain control pending CT scan report. 11/21/19 00:35 IMPRESSION: No acute intra-abdominal process identified. Persistent soft tissue mass adjacent to the left spigelian hernia. This may represent an area of fat necrosis. Hypodense lesion on the left ovary, likely a physiologic cyst. Hepatic steatosis. Above findings were discussed with the patient. Copies of the CT report and labs were given, and she will recheck with surgery in the next 48 to 72 hours if not improving. Departure - Departure Time of Disposition: 00:46 Disposition: Home, Self-Care 01 Clinical Impression: Spigelian hernia Abdominal pain Qualifiers: Abdominal location: left lower quadrant Qualified Code(s): R10.32 - Left lower quadrant pain - Discharge Information Instructions: Abdominal Pain, Adult, [id number] Referrals: Sonal Javier DO [Primary Care Provider] - Forms: ED Department Discharge Care Plan Goals: Continue with your current medications, and activity and diet as tolerated. Recheck with surgery in the next few days if not improving satisfactorily. Sepsis Event Note - Focused Exam Date Exam was Performed: 11/23/19 Time Exam was Performed: 17:21
[2019-11-20] MEDS ORDERED: Sodium Chloride 0.9% 1,000 ML IV SCH (23:15)
[2019-11-20] MEDS ORDERED: HYDROmorphone 0.5 MG/0.5 ML Syringe IVPUSH ONE (23:25)
[2019-11-20] MEDS ORDERED: Iopamidol 612 MG/ML 150 ML Bottle IV STA (23:35)
--- NOTE | 2019-11-21 00:34 | CRLCT ---
INDICATION: Abdominal pain TECHNIQUE: CT abdomen and pelvis acquired with 150 cc Isovue 300 IV contrast. COMPARISON: None FINDINGS: Lower chest: Unremarkable. Liver: Hepatic steatosis. Spleen: Unremarkable. Pancreas: Unremarkable. Gallbladder and bile ducts: Unremarkable. Adrenal glands: Unremarkable. Kidneys: Unremarkable. GI tract: Unremarkable. Appendix is normal. Vascular structures: Unremarkable. Lymph nodes: Unremarkable. Miscellaneous: Left spigelian hernia. There is a 2.3 x 2.5 cm soft tissue mass adjacent to the hernia, unchanged compared to the exam. There is no fat stranding adjacent to the hernia. No free air or significant free fluid. Pelvic Organs: 2.4 cm hypodense lesion on the left ovary. Bones: Unremarkable for age. IMPRESSION: No acute intra-abdominal process identified. Persistent soft tissue mass adjacent to the left spigelian hernia. This may represent an area of fat necrosis. Hypodense lesion on the left ovary, likely a physiologic cyst. Hepatic steatosis. Please note that all CT scans at this facility use dose modulation, iterative reconstruction, and/or weight-based dosing when appropriate to reduce radiation dose to as low as reasonably achievable. Dictated by Elsy Tay MD @ Nov 21 2019 12:21AM Signed by Dr. Elsy Tay @ Nov 21 2019 12:32AM
== END 2019-11-21 00:46 | disposition home or self-care (01) ==
LOC: JP.ED 22:26
DX: K43.9 Ventral hernia without obstruction or gangrene (principal); J45.909 Unspecified asthma, uncomplicated; M19.90 Unspecified osteoarthritis, unspecified site; F41.0 Panic disorder [episodic paroxysmal anxiety]; F32.9 Major depressive disorder, single episode, unspecified; E66.9 Obesity, unspecified; Z68.45 Body mass index [BMI] 70 or greater, adult; Z91.018 Allergy to other foods; Z88.8 Allergy status to other drugs, medicaments and biological substances; Z91.040 Latex allergy status; Z79.899 Other long term (current) drug therapy
CPT/HCPCS: 36415; 74177; 80053; 82150; 83605; 83690; 85025; 99284; J1170; J7030; J7050; Q9967

== ENCOUNTER 2020-01-08 20:24 | Emergency (ER) | payer MEDICAID ==
[2020-01-08 20:46] VITALS: PULSE 90
[2020-01-08 21:06] VITALS: BP 141/68
[2020-01-08] MEDS ORDERED: Alum Hydrox/Mag Hydrox/Simeth 15 ML, Lidocaine 2% 15 ML PO ONE ×2 (21:28)
--- NOTE | 2020-01-08 21:31 | EDM.PDOC ---
ED HPI GENERAL MEDICAL PROBLEM - General Chief Complaint: Gastrointestinal Problem Stated Complaint: SOB,HEART RACING Time Seen by Provider: 01/08/20 21:16 Source of Information: Reports: Patient, RN Notes Reviewed History Limitations: Reports: No Limitations - History of Present Illness INITIAL COMMENTS - FREE TEXT/NARRATIVE: 34-year-old female presents emergency department a complaint of multiple medical issues, she states he has a history of migraines has been dealing with migraine for the last couple days however over the last 12 hours developed chest pain shortness of breath palpitations some epigastric discomfort as well no nausea vomiting was evaluated in the clinic 2 days prior for her epigastric discomfort per her report was told that she was constipated recommend treatment of MiraLAX - Related Data Allergies Allergy/AdvReac Type Severity Reaction Status Date / Time naproxen Allergy Intermediate Hives Verified 01/08/20 20:53 coconut oil Allergy Other Verified 01/08/20 20:53 Latex, Natural Rubber Allergy Hives Verified 01/08/20 20:53 tramadol Allergy Hives Verified 01/08/20 20:53 Home Meds: Home Meds Albuterol Sulfate [Proair Hfa] 2 puff INH Q4H PRN 03/11/14 [History] Fluticasone Propionate [Flonase] 2 spray INGRID DAILY PRN 10/12/17 [History] Loratadine 10 mg PO DAILY PRN 10/14/17 [History] ClonazePAM [KlonoPIN] 0.5 mg PO BID 07/25/18 [History] Ibuprofen [Motrin] 800 mg PO Q6H PRN 04/11/19 [History] Acetaminophen [Tylenol Extra Strength] 1,000 mg PO Q6H PRN 07/03/19 [History] Multivitamin [Multivitamins] 1 cap PO DAILY 07/03/19 [History] Magnesium Hydroxide [Milk of Magnesia] 30 ml PO DAILY PRN #2 ml 07/06/19 [Rx] Cannabidiol (Cbd) Extract [Cannabis (Medical)] 5 mg PO DAILY PRN 11/20/19 [ History] Norethindrone-Ethinyl Estrad [Alyacen 7-7-7-28 Tablet] 1 tab PO DAILY 11/20/19 [ History] Amoxicillin 1 tab PO BID 01/08/20 [History] Past Medical History HEENT History: Reports: Allergic Rhinitis, Glaucoma, Impaired Vision Other HEENT History: tubes in ears as young child. 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 Musculoskeletal History: Reports: Arthritis Neurological History: Reports: Headaches, Chronic, Migraines Psychiatric History: Reports: Anxiety, Depression, Panic Attack Endocrine/Metabolic History: Reports: Obesity/BMI 30+ Dermatologic History: Reports: Other (See Below) Other Dermatologic History: hydradenitis bilat groin/bilat breast; buttocks - Infectious Disease History Infectious Disease History: Reports: Chicken Pox - Past Surgical History HEENT Surgical History: Reports: Myringotomy w Tube(s) GI Surgical History: Reports: Hernia, Abdominal, Hernia Repair/Other Other GI Surgeries/Procedures: hernia repair Mar 30 2019, hernia repair july 04 2019 Dermatological Surgical History: Reports: None Social & Family History - Family History Family Medical History: Noncontributory Cardiac: Reports: Hypertension Respiratory: Reports: Asthma Psychiatric: Reports: Anxiety, Depression Endocrine/Metabolic: Reports: Diabetes, Type I Oncologic: Reports: Breast, Liver - Tobacco Use Smoking Status *Q: Never Smoker - Caffeine Use Caffeine Use: Reports: Soda Other Caffeine Use: 1 pop per day. Caffeine Use Comment: 1 pop/daily - Recreational Drug Use Recreational Drug Type: Reports: Marijuana/Hashish Other Recreational Drug Type: medical ED ROS GENERAL - Review of Systems Review Of Systems: See Below Constitutional: Denies: Fever, Chills HEENT: Reports: No Symptoms Respiratory: Reports: Shortness of Breath Cardiovascular: Reports: Chest Pain GI/Abdominal: Reports: Abdominal Pain, Flatus, Nausea. Denies: Vomiting : Reports: No Symptoms Musculoskeletal: Reports: No Symptoms Skin: Reports: No Symptoms Neurological: Reports: Headache ED EXAM, GENERAL - Physical Exam Exam: See Below Exam Limited By: No Limitations General Appearance: Alert, WD/WN, No Apparent Distress Head: Atraumatic, Normocephalic Neck: Normal Inspection, Supple, Non-Tender, Full Range of Motion Respiratory/Chest: No Respiratory Distress, Lungs Clear, Normal Breath Sounds, No Accessory Muscle Use, Chest Non-Tender Cardiovascular: Regular Rate, Rhythm, No Murmur GI/Abdominal: Soft, Tender (Tender epigastric region) Extremities: Normal Inspection, Normal Range of Motion, No Pedal Edema Course - Vital Signs Last Recorded V/S: Last Vital Signs Temp 97.6 F 01/08/20 21:06 Pulse 90 01/08/20 21:06 Resp 16 01/08/20 21:06 BP 141/68 H 01/08/20 21:06 Pulse Ox 93 L 01/08/20 21:06 - Orders/Labs/Meds Orders: Active Orders 24 hr Category Date Time Status Cardiac Monitoring [RC] .As Directed Care 01/08/20 21:27 Active EKG Documentation Completion [RC] ASDIRECTED Care 01/08/20 20:50 Active EKG 12 Lead [EK] Stat Ther 01/08/20 20:50 Ordered Labs: Laboratory Tests 01/08/20 01/08/20 01/08/20 Range/Units 21:42 21:42 21:42 WBC 10.0 (4.5-11.0) K/uL RBC 4.46 (3.30-5.50) M/uL Hgb 13.4 (12.0-15.0) g/dL Hct 40.9 (36.0-48.0) % MCV 92 (80-98) fL MCH 30 (27-31) pg MCHC 33 (32-36) % Plt Count 268 (150-400) K/uL Neut % (Auto) 71 H (36-66) % Lymph % (Auto) 21 L (24-44) % Cass % (Auto) 7 H (2-6) % Eos % (Auto) 1 L (2-4) % Baso % (Auto) 0 (0-1) % D-Dimer, Quantitative 425 H (0.0-400.0) ng/mL Sodium 143 (140-148) mmol/L Potassium 3.7 (3.6-5.2) mmol/L Chloride 104 (100-108) mmol/L Carbon Dioxide 27 (21-32) mmol/L Anion Gap 12.5 (5.0-14.0) mmol/L BUN 9 (7-18) mg/dL Creatinine 0.8 (0.6-1.0) mg/dL Est Cr Clr Drug Dosing 82.74 mL/min Estimated GFR (MDRD) > 60 (>60) Glucose 134 H (74-106) mg/dL Calcium 8.7 (8.5-10.1) mg/dL Total Bilirubin 0.2 (0.2-1.0) mg/dL AST 13 L (15-37) U/L ALT 27 (12-78) U/L Alkaline Phosphatase 52 (46-116) U/L Troponin I < 0.017 (0.000-0.056) ng/mL Total Protein 7.4 (6.4-8.2) g/dL Albumin 3.6 (3.4-5.0) g/dL Globulin 3.8 H (2.3-3.5) g/dL Albumin/Globulin Ratio 1.0 L (1.2-2.2) Lipase 55 L (73-393) U/L Urine Color (YELLOW) Urine Appearance (CLEAR) Urine pH (5.0-8.0) Ur Specific [place] (1.008-1.030) Urine Protein (NEGATIVE) mg/dL Urine Glucose (UA) (NEGATIVE) mg/dL Urine Ketones (NEGATIVE) mg/dL Urine Occult Blood (NEGATIVE) Urine Nitrite (NEGATIVE) Urine Bilirubin (NEGATIVE) Urine Urobilinogen (0.2-1.0) EU/dL Ur Leukocyte Esterase (NEGATIVE) Urine RBC (0-5) Urine WBC (0-5) Ur Epithelial Cells Amorphous Sediment Urine Bacteria Urine Mucus 01/08/20 Range/Units 22:35 WBC (4.5-11.0) K/uL RBC (3.30-5.50) M/uL Hgb (12.0-15.0) g/dL Hct (36.0-48.0) % MCV (80-98) fL MCH (27-31) pg MCHC (32-36) % Plt Count (150-400) K/uL Neut % (Auto) (36-66) % Lymph % (Auto) (24-44) % Cass % (Auto) (2-6) % Eos % (Auto) (2-4) % Baso % (Auto) (0-1) % D-Dimer, Quantitative (0.0-400.0) ng/mL Sodium (140-148) mmol/L Potassium (3.6-5.2) mmol/L Chloride (100-108) mmol/L Carbon Dioxide (21-32) mmol/L Anion Gap (5.0-14.0) mmol/L BUN (7-18) mg/dL Creatinine (0.6-1.0) mg/dL Est Cr Clr Drug Dosing mL/min Estimated GFR (MDRD) (>60) Glucose (74-106) mg/dL Calcium (8.5-10.1) mg/dL Total Bilirubin (0.2-1.0) mg/dL AST (15-37) U/L ALT (12-78) U/L Alkaline Phosphatase (46-116) U/L Troponin I (0.000-0.056) ng/mL Total Protein (6.4-8.2) g/dL Albumin (3.4-5.0) g/dL Globulin (2.3-3.5) g/dL Albumin/Globulin Ratio (1.2-2.2) Lipase (73-393) U/L Urine Color Yellow (YELLOW) Urine Appearance Slightly cloudy A (CLEAR) Urine pH 7.0 (5.0-8.0) Ur Specific [place] 1.025 (1.008-1.030) Urine Protein Negative (NEGATIVE) mg/dL Urine Glucose (UA) Negative (NEGATIVE) mg/dL Urine Ketones Negative (NEGATIVE) mg/dL Urine Occult Blood Moderate H (NEGATIVE) Urine Nitrite Negative (NEGATIVE) Urine Bilirubin Negative (NEGATIVE) Urine Urobilinogen 0.2 (0.2-1.0) EU/dL Ur Leukocyte Esterase Negative (NEGATIVE) Urine RBC 0-5 (0-5) Urine WBC 0-5 (0-5) Ur Epithelial Cells Moderate Amorphous Sediment Many Urine Bacteria Moderate Urine Mucus Not seen Meds: Medications Discontinued Medications Generic Name Dose Route Start Last Admin Trade Name Freq PRN Reason Stop Dose Admin Al Hydroxide/Mg Hydroxide 15 0 ml 01/08/20 21:28 01/08/20 21:33 ml/ Lidocaine HCl 15 ml PO 01/08/20 21:29 30 ml ONETIME ONE Administration Departure - Departure Time of Disposition: 23:02 Disposition: Home, Self-Care 01 Condition: Fair Clinical Impression: GERD (gastroesophageal reflux disease) Qualifiers: Esophagitis presence: esophagitis presence not specified Qualified Code(s): K21.9 - Gastro-esophageal reflux disease without esophagitis - Discharge Information Instructions: Food Choices for Gastroesophageal Reflux Disease, Adult Referrals: Sonal Javier DO [Primary Care Provider] - Forms: ED Department Discharge Additional Instructions: Try some of the [id number] antacids, Tums could even be tried, please followup with your primary care provider in 3-5 days if not better, please call return to the emergency department with worsening of symptoms. Sepsis Event Note - Evaluation Sepsis Screening Result: No Definite Risk - Focused Exam Vital Signs: Vital Signs Temp Pulse Resp BP Pulse Ox 01/08/20 21:06 97.6 F 90 16 141/68 H 93 L 01/08/20 20:40 97.6 F 90 16 153/101 H 93 L Date Exam was Performed: 01/08/20 Time Exam was Performed: 23:01 - My Orders Last 24 Hours: My Active Orders 01/08/20 20:50 EKG Documentation Completion [RC] ASDIRECTED EKG 12 Lead [EK] Stat 01/08/20 21:27 Cardiac Monitoring [RC] .As Directed - Assessment/Plan Last 24 Hours: My Active Orders 01/08/20 20:50 EKG Documentation Completion [RC] ASDIRECTED EKG 12 Lead [EK] Stat 01/08/20 21:27 Cardiac Monitoring [RC] .As Directed Plan: Assessment Acuity = acute Site and laterality = gastroesophageal reflux disease Etiology = unknown Manifestations = epigastric abdominal pain Location of injury = Home Lab values = CBC, CMP, lipase, troponin, d-dimer, EKG all within normal limits Plan She had good improvement with GI cocktail she is going to restart her reflux medication follow-up primary care 3 to 5 days if not better This note was dictated using [employer] voice recognition software please call with any questions on syntax or grammar.
== END 2020-01-08 23:23 | disposition home or self-care (01) ==
LOC: JP.ED 20:24
DX: K21.9 Gastro-esophageal reflux disease without esophagitis (principal); J45.909 Unspecified asthma, uncomplicated; M19.90 Unspecified osteoarthritis, unspecified site; F41.0 Panic disorder [episodic paroxysmal anxiety]; F32.9 Major depressive disorder, single episode, unspecified; E66.9 Obesity, unspecified; Z68.41 Body mass index [BMI] 40.0-44.9, adult; Z88.8 Allergy status to other drugs, medicaments and biological substances; Z91.040 Latex allergy status; Z88.5 Allergy status to narcotic agent; Z91.048 Other nonmedicinal substance allergy status; Z79.899 Other long term (current) drug therapy
CPT/HCPCS: 36415; 80053; 81001; 83690; 84484; 85025; 85379; 93005; 99285; A9270

== ENCOUNTER 2020-01-21 18:04 | Emergency (ER) | payer MEDICAID ==
[2020-01-21 18:20] VITALS: BP 181/109; PULSE 90
[2020-01-21] MEDS ORDERED: fentaNYL 100 MCG/2 ML SDV IM ONE (18:43)
--- NOTE | 2020-01-21 18:47 | EDM.PDOC ---
ED HPI GENERAL MEDICAL PROBLEM - General Chief Complaint: Abdominal Pain Stated Complaint: LEFT ABDOMINAL PAIN Time Seen by Provider: 01/21/20 18:28 Source of Information: Reports: Patient, Old Records, RN Notes Reviewed History Limitations: Reports: No Limitations - History of Present Illness INITIAL COMMENTS - FREE TEXT/NARRATIVE: 34-year-old female presents emergency department today complaint of abdominal pain, she has been to the emergency department multiple times for the same complaints has been followed by primary care same complaint recently underwent CAT scan end of December which demonstrates a 3 cm masslike focus thought to be soft tissue near the inguinal ring left side probably related to multiple surgeries. She states the abdominal pain started today has progressively gotten worse has been working with her primary care on issues of constipation Left Lower Abdomen Pain Score (Numeric/FACES): 9 - Related Data Allergies Allergy/AdvReac Type Severity Reaction Status Date / Time naproxen Allergy Intermediate Hives Verified 01/21/20 18:19 coconut oil Allergy Other Verified 01/21/20 18:19 Latex, Natural Rubber Allergy Hives Verified 01/21/20 18:19 tramadol Allergy Hives Verified 01/21/20 18:19 Home Meds: Home Meds Albuterol Sulfate [Proair Hfa] 2 puff INH Q4H PRN 03/11/14 [History] Fluticasone Propionate [Flonase] 2 spray INGRID DAILY PRN 10/12/17 [History] Loratadine 10 mg PO DAILY PRN 10/14/17 [History] ClonazePAM [KlonoPIN] 0.5 mg PO BID 07/25/18 [History] Ibuprofen [Motrin] 800 mg PO Q6H PRN 04/11/19 [History] Acetaminophen [Tylenol Extra Strength] 1,000 mg PO Q6H PRN 07/03/19 [History] Multivitamin [Multivitamins] 1 cap PO DAILY 07/03/19 [History] Magnesium Hydroxide [Milk of Magnesia] 30 ml PO DAILY PRN #2 ml 07/06/19 [Rx] Cannabidiol (Cbd) Extract [Cannabis (Medical)] 5 mg PO DAILY PRN 11/20/19 [ History] Norethindrone-Ethinyl Estrad [Alyacen 7-7-7-28 Tablet] 1 tab PO DAILY 11/20/19 [ History] Past Medical History HEENT History: Reports: Allergic Rhinitis, Glaucoma, Impaired Vision Other HEENT History: tubes in ears as young child. 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 Musculoskeletal History: Reports: Arthritis Neurological History: Reports: Headaches, Chronic, Migraines Psychiatric History: Reports: Anxiety, Depression, Panic Attack Endocrine/Metabolic History: Reports: Obesity/BMI 30+ Dermatologic History: Reports: Other (See Below) Other Dermatologic History: hydradenitis bilat groin/bilat breast; buttocks - Infectious Disease History Infectious Disease History: Reports: Chicken Pox - Past Surgical History Head Surgeries/Procedures: Reports: None HEENT Surgical History: Reports: Myringotomy w Tube(s) Respiratory Surgical History: Reports: None GI Surgical History: Reports: Hernia, Abdominal, Hernia Repair/Other Other GI Surgeries/Procedures: hernia repair Mar 30 2019, hernia repair july 04 2019 Endocrine Surgical History: Reports: None Neurological Surgical History: Reports: None Musculoskeletal Surgical History: Reports: None Dermatological Surgical History: Reports: None Social & Family History - Family History Family Medical History: Noncontributory Cardiac: Reports: Hypertension Respiratory: Reports: Asthma Psychiatric: Reports: Anxiety, Depression Endocrine/Metabolic: Reports: Diabetes, Type I Oncologic: Reports: Breast, Liver - Tobacco Use Smoking Status *Q: Former Smoker Used Tobacco, but Quit: Yes Month/Year Tobacco Last Used: 2016 Second Hand Smoke Exposure: No - Caffeine Use Caffeine Use: Reports: Soda Other Caffeine Use: 1 pop per day. Caffeine Use Comment: 1 pop/daily - Recreational Drug Use Recreational Drug Use: Yes Drug Use in Last 12 Months: Yes Recreational Drug Type: Reports: Marijuana/Hashish Recreational Drug Use Frequency: Daily ED ROS GENERAL - Review of Systems Review Of Systems: See Below Constitutional: Reports: No Symptoms HEENT: Reports: No Symptoms Respiratory: Reports: No Symptoms Cardiovascular: Reports: No Symptoms GI/Abdominal: Reports: Abdominal Pain. Denies: Nausea : Reports: No Symptoms ED EXAM, GI/ABD - Physical Exam Exam: See Below Exam Limited By: No Limitations General Appearance: Alert, WD/WN, No Apparent Distress Respiratory/Chest: No Respiratory Distress, Lungs Clear, Normal Breath Sounds, No Accessory Muscle Use, Chest Non-Tender Cardiovascular: Regular Rate, Rhythm, No Murmur GI/Abdominal Exam: Soft, Tender (Generalized tenderness to palpation) Course - Vital Signs Last Recorded V/S: Last Vital Signs Temp 98.1 F 01/21/20 18:22 Pulse 90 01/21/20 18:22 Resp 16 01/21/20 18:22 BP 181/109 H 01/21/20 18:22 Pulse Ox 99 01/21/20 18:22 - Orders/Labs/Meds Orders: Active Orders 24 hr Category Date Time Status Abdomen 1V Upright [CR] Urgent Exams 01/21/20 18:41 Taken Labs: Laboratory Tests 01/21/20 01/21/20 01/21/20 Range/Units 18:57 18:57 18:57 WBC 8.9 (4.5-11.0) K/uL RBC 4.37 (3.30-5.50) M/uL Hgb 13.2 (12.0-15.0) g/dL Hct 40.4 (36.0-48.0) % MCV 92 (80-98) fL MCH 30 (27-31) pg MCHC 33 (32-36) % Plt Count 258 (150-400) K/uL Neut % (Auto) 67 H (36-66) % Lymph % (Auto) 21 L (24-44) % [place] % (Auto) 8 H (2-6) % Eos % (Auto) 3 (2-4) % Baso % (Auto) 0 (0-1) % Sodium 140 (140-148) mmol/L Potassium 4.1 (3.6-5.2) mmol/L Chloride 106 (100-108) mmol/L Carbon Dioxide 25 (21-32) mmol/L Anion Gap 8.6 (5.0-14.0) mmol/L BUN 13 (7-18) mg/dL Creatinine 0.9 (0.6-1.0) mg/dL Est Cr Clr Drug Dosing 73.55 mL/min Estimated GFR (MDRD) > 60 (>60) Glucose 121 H (74-106) mg/dL Lactic Acid 1.3 (0.4-2.0) mmol/L Calcium 8.6 (8.5-10.1) mg/dL Total Bilirubin 0.2 (0.2-1.0) mg/dL AST 14 L (15-37) U/L ALT 28 (12-78) U/L Alkaline Phosphatase 54 (46-116) U/L Total Protein 7.1 (6.4-8.2) g/dL Albumin 3.5 (3.4-5.0) g/dL Globulin 3.6 H (2.3-3.5) g/dL Albumin/Globulin Ratio 1.0 L (1.2-2.2) Lipase 80 (73-393) U/L Urine Color (YELLOW) Urine Appearance (CLEAR) Urine pH (5.0-8.0) Ur Specific [place] (1.008-1.030) Urine Protein (NEGATIVE) mg/dL Urine Glucose (UA) (NEGATIVE) mg/dL Urine Ketones (NEGATIVE) mg/dL Urine Occult Blood (NEGATIVE) Urine Nitrite (NEGATIVE) Urine Bilirubin (NEGATIVE) Urine Urobilinogen (0.2-1.0) EU/dL Ur Leukocyte Esterase (NEGATIVE) Urine RBC (0-5) Urine WBC (0-5) Ur Epithelial Cells Amorphous Sediment Urine Bacteria Urine Mucus Urine HCG, Qual 01/21/20 01/21/20 Range/Units 19:48 19:48 WBC (4.5-11.0) K/uL RBC (3.30-5.50) M/uL Hgb (12.0-15.0) g/dL Hct (36.0-48.0) % MCV (80-98) fL MCH (27-31) pg MCHC (32-36) % Plt Count (150-400) K/uL Neut % (Auto) (36-66) % Lymph % (Auto) (24-44) % [place] % (Auto) (2-6) % Eos % (Auto) (2-4) % Baso % (Auto) (0-1) % Sodium (140-148) mmol/L Potassium (3.6-5.2) mmol/L Chloride (100-108) mmol/L Carbon Dioxide (21-32) mmol/L Anion Gap (5.0-14.0) mmol/L BUN (7-18) mg/dL Creatinine (0.6-1.0) mg/dL Est Cr Clr Drug Dosing mL/min Estimated GFR (MDRD) (>60) Glucose (74-106) mg/dL Lactic Acid (0.4-2.0) mmol/L Calcium (8.5-10.1) mg/dL Total Bilirubin (0.2-1.0) mg/dL AST (15-37) U/L ALT (12-78) U/L Alkaline Phosphatase (46-116) U/L Total Protein (6.4-8.2) g/dL Albumin (3.4-5.0) g/dL Globulin (2.3-3.5) g/dL Albumin/Globulin Ratio (1.2-2.2) Lipase (73-393) U/L Urine Color Yellow (YELLOW) Urine Appearance Cloudy A (CLEAR) Urine pH 8.0 (5.0-8.0) Ur Specific [place] 1.020 (1.008-1.030) Urine Protein Negative (NEGATIVE) mg/dL Urine Glucose (UA) Negative (NEGATIVE) mg/dL Urine Ketones Negative (NEGATIVE) mg/dL Urine Occult Blood Negative (NEGATIVE) Urine Nitrite Negative (NEGATIVE) Urine Bilirubin Negative (NEGATIVE) Urine Urobilinogen 0.2 (0.2-1.0) EU/dL Ur Leukocyte Esterase Negative (NEGATIVE) Urine RBC Not seen (0-5) Urine WBC 5-10 H (0-5) Ur Epithelial Cells Moderate Amorphous Sediment Numerous Urine Bacteria Many Urine Mucus Not seen Urine HCG, Qual Negative Meds: Medications Discontinued Medications Generic Name Dose Route Start Last Admin Trade Name Margret PRN Reason Stop Dose Admin Fentanyl 50 mcg 01/21/20 18:43 01/21/20 18:51 Sublimaze IM 01/21/20 18:44 50 mcg ONETIME ONE Administration Departure - Departure Time of Disposition: 20:13 Disposition: Home, Self-Care 01 Condition: Fair Clinical Impression: Functional constipation - Discharge Information Instructions: Constipation, Adult Referrals: Sonal Javier DO [Primary Care Provider] - Forms: ED Department Discharge Additional Instructions: Try the MiraLAX with the colonoscopy prep, please call the clinic in the morning on Thursday for an appointment time with Dr. Beckham Sepsis Event Note - Evaluation Sepsis Screening Result: No Definite Risk - Focused Exam Vital Signs: Vital Signs Temp Pulse Resp BP Pulse Ox 01/21/20 18:22 98.1 F 90 16 181/109 H 99 01/21/20 18:18 98.1 F 90 16 181/109 H 99 Date Exam was Performed: 01/21/20 Time Exam was Performed: 20:12 - My Orders Last 24 Hours: My Active Orders 01/21/20 18:41 Abdomen 1V Upright [CR] Urgent - Assessment/Plan Last 24 Hours: My Active Orders 01/21/20 18:41 Abdomen 1V Upright [CR] Urgent Plan: Assessment Acuity = acute Site and laterality = functional constipation Etiology = slow transit time Manifestations = intermittent abdominal pain Location of injury = Home Lab values = CBC, CMP, unremarkable urinalysis unremarkable plain film of the x- ray does show large amount of stool official read radiologist pending Plan I did review lab work and CT scan results from the end of the month with her as well as current x-ray were to try MiraLAX with the colonoscopy prep also consultation with Dr. Beckham will be set up for next week This note was dictated using [employer] voice recognition software please call with any questions on syntax or grammar.
--- NOTE | 2020-01-23 09:12 | CR ---
Abdomen 1V Upright CLINICAL HISTORY: Pain FINDINGS: The bowel gas pattern is nonobstructive. No abnormal masses are noted. There is moderate fecal retention IMPRESSION: Nonacute intestinal gas pattern Moderate fecal retention
== END 2020-01-21 20:23 | disposition home or self-care (01) ==
LOC: JP.ED 18:04
DX: K59.04 Chronic idiopathic constipation (principal); F41.9 Anxiety disorder, unspecified; E66.9 Obesity, unspecified; Z68.42 Body mass index [BMI] 45.0-49.9, adult; Z88.8 Allergy status to other drugs, medicaments and biological substances; Z91.040 Latex allergy status; Z88.5 Allergy status to narcotic agent; Z79.899 Other long term (current) drug therapy; Z87.891 Personal history of nicotine dependence
CPT/HCPCS: 36415; 74018; 80053; 81001; 81025; 83605; 83690; 85025; 96372; 99284; J3010

== ENCOUNTER 2020-01-27 07:55 | Day surgery (SDC) | payer MEDICAID ==
[~2020-01-27 07:55] MED LIST changes: +Midazolam 1 MG/ML 2 ML SDV ONE; +Propofol 200 MG/20 ML SDV ONE; +fentaNYL 100 MCG/2 ML SDV ONE
[2020-01-27] MEDS ORDERED: Acetaminophen 500 MG Tab PO ONE (08:30)
[2020-01-27] MEDS ORDERED: Propofol 200 MG/20 ML SDV ONE (08:46)
[2020-01-27] MEDS ORDERED: Neostigmine Methylsulfate 1 MG/ML 5 ML Syringe ONE (08:46)
[2020-01-27] MEDS ORDERED: Succinylcholine 200 MG/10 ML MDV ONE (08:46)
[2020-01-27] MEDS ORDERED: Dexamethasone 4 MG/ML SDV ONE (08:46)
[2020-01-27] MEDS ORDERED: Ondansetron 4 MG/2 ML SDV ONE (08:46)
[2020-01-27] MEDS ORDERED: Glycopyrrolate 0.2 MG/ML 5 ML MDV ONE (08:46)
[2020-01-27] MEDS ORDERED: fentaNYL 250 MCG/5 ML SDV ONE (08:46)
[2020-01-27] MEDS ORDERED: Rocuronium 50 MG/5 ML Vial ONE (08:46)
[2020-01-27] MEDS ORDERED: Dextrose 5%-Lactated Ringers 1,000 ML IV SCH (09:00)
[2020-01-27] MEDS ORDERED: Albuterol/Ipratropium 3.0-0.5 MG/3 ML Neb Soln NEB ONE (09:00)
[2020-01-27] MEDS ORDERED: cefOXitin 2 GM in Sodium Chloride 0.9% 50 ML IV ONE (09:00)
[2020-01-27] MEDS ORDERED: fentaNYL 100 MCG/2 ML SDV IVPUSH ONE (10:18)
[2020-01-27 11:23] VITALS: BP 120/48; PULSE 59
[2020-01-27] MEDS ORDERED: Sulfamethoxazole/Trimethoprim 800-160 MG Tab PO ONE (11:30)
--- NOTE | 2020-02-05 13:02 | OR ---
DATE OF PROCEDURE: 01/27/2020 SURGEON: Ricky Beckham MD PREOPERATIVE DIAGNOSIS: Hidradenitis suppurativa involving right axilla right breast and right upper thigh. POSTOPERATIVE DIAGNOSIS: Hidradenitis suppurativa involving right axilla right breast and right upper thigh. OPERATIVE PROCEDURE: 1. Excision of hidradenitis suppurativa involving. a. Right axilla (99090). b. Lateral aspect of right breast ([id number]). c. Right upper thigh and lower inguinal area ([id number]). ANESTHESIA: General. INDICATIONS FOR PROCEDURE: This is a 34-year-old with known history of hidradenitis suppurativa involving 3 active areas, 1 is in the central right axilla, 1 is in the lateral right breast which would be more or less in extension of the right axillary area and one is in the right upper thigh/inguinal area. leave the incisions open for secondary closure. Potential risks of the procedure including bleeding and infection were reviewed, and the patient wishes to proceed. DETAILS OF PROCEDURE: The patient was taken to the operating room and placed in a supine position. After general endotracheal anesthesia was induced, the 3 areas of concern were prepped and draped. In each case, the areas were excised using electrocautery and extending into the subcutaneous tissue with the deeper plane involved as were the lateral planes. In each case, the wounds were then inspected for hemostasis and anesthestized with 1% lidocaine mixed with Marcaine and packed with Iodoform gauze. Dressings were applied and the patient was taken to the recovery room in satisfactory condition. Ricky Beckham MD /[id number]
== END 2020-01-27 11:43 | disposition home or self-care (01) ==
LOC: JP.SDS 07:55
PROVIDERS: ATTEND Surgery
DX: L73.2 Hidradenitis suppurativa (principal); F41.9 Anxiety disorder, unspecified; F32.9 Major depressive disorder, single episode, unspecified; E66.9 Obesity, unspecified; Z68.42 Body mass index [BMI] 45.0-49.9, adult; Z98.890 Other specified postprocedural states; Z79.899 Other long term (current) drug therapy
CPT/HCPCS: 36415; 80048; 81025; 85027; 87070; 87075; 87077; 87186; 87205; 88304; A9270-GY; J0330; J0694; J1100; J2250; J2405; J2704; J2710; J3010; J3490; J7050; J7121; J7620-GY

== ENCOUNTER 2020-02-21 05:12 | Day surgery (SDC) | payer MEDICAID ==
[2020-02-21] MEDS ORDERED: Acetaminophen 500 MG Tab PO ONE (05:45)
[2020-02-21] MEDS ORDERED: Lidocaine 1% with EPINEPHrine 1:100,000 50 ML MDV ONE (06:28)
[2020-02-21] MEDS ORDERED: Bupivacaine 0.5% 50 ML MDV ONE (06:28)
[2020-02-21] MEDS ORDERED: Albuterol/Ipratropium 3.0-0.5 MG/3 ML Neb Soln NEB ONE (06:30)
[2020-02-21] MEDS: Dextrose 5%-Lactated Ringers 1,000 ML IV SCH ×3 (06:49→17:21)
[2020-02-21] MEDS ORDERED: Ondansetron 4 MG/2 ML SDV ONE (07:11)
[2020-02-21] MEDS ORDERED: fentaNYL 250 MCG/5 ML SDV ONE (07:11)
[2020-02-21] MEDS ORDERED: Propofol 200 MG/20 ML SDV ONE (07:11)
[2020-02-21] MEDS ORDERED: Rocuronium 50 MG/5 ML Vial ONE (07:11)
[2020-02-21] MEDS ORDERED: Succinylcholine 200 MG/10 ML MDV ONE (07:11)
[2020-02-21] MEDS ORDERED: Neostigmine Methylsulfate 1 MG/ML 5 ML Syringe ONE (07:11)
[2020-02-21] MEDS ORDERED: Dexamethasone 4 MG/ML SDV ONE (07:11)
[2020-02-21] MEDS ORDERED: Glycopyrrolate 0.2 MG/ML 5 ML MDV ONE (07:11)
[2020-02-21] MEDS ORDERED: ceFAZolin 2 GM in Premix Bag 1 BAG IV ONE (07:15)
[2020-02-21] MEDS ORDERED: Meropenem 500 MG SDV ONE (07:39)
[2020-02-21] MEDS ORDERED: Bupivacaine 0.5%/EPINEPHrine 1:200,000 50 ML MDV ONE (07:39)
[2020-02-21] MEDS ORDERED: hydrOXYzine HCL 100 MG/2 ML SDV IM ONE (08:36)
[2020-02-21] MEDS ORDERED: fentaNYL 100 MCG/2 ML SDV IVPUSH ONE (08:36)
[2020-02-21] MEDS ORDERED: Pantoprazole 40 MG Vial IVPUSH ONE (08:38)
[2020-02-21] MEDS ORDERED: Ketorolac 60 MG/2 ML SDV IM ONE (08:40)
[2020-02-21] MEDS ORDERED: hydrOXYzine HCL 100 MG/2 ML SDV IM PRN (10:04)
[2020-02-21] MEDS ORDERED: Albuterol/Ipratropium 3.0-0.5 MG/3 ML Neb Soln INH PRN (10:06)
[2020-02-21] MEDS ORDERED: Ondansetron 4 MG/2 ML SDV IVPUSH PRN (10:10)
[2020-02-21] MEDS: Albuterol/Ipratropium 3.0-0.5 MG/3 ML Neb Soln INH SCH ×3 (11:09→21:30)
[2020-02-21] MEDS: Acetaminophen/HYDROcodone 325-5 MG Tab PO PRN ×4 (11:12→23:12)
[2020-02-21] MEDS: ceFAZolin 2 GM in Premix Bag 1 BAG IV SCH ×2 (15:22→23:14)
[2020-02-21] MEDS: Ibuprofen 600 MG Tab PO SCH ×2 (16:14→21:30)
[2020-02-21] MEDS: Pantoprazole 40 MG Vial IV SCH (21:30)
[2020-02-21] MEDS ORDERED: Melatonin 3 MG Tab PO SCH (22:39)
[2020-02-22] MEDS: Ibuprofen 600 MG Tab PO SCH ×2 (04:13→09:48)
[2020-02-22] MEDS: Acetaminophen/HYDROcodone 325-5 MG Tab PO PRN ×2 (04:14→08:16)
[2020-02-22] MEDS: Dextrose 5%-Lactated Ringers 1,000 ML IV SCH (04:15)
[2020-02-22] MEDS: ceFAZolin 2 GM in Premix Bag 1 BAG IV SCH (06:05)
[2020-02-22] MEDS: Albuterol/Ipratropium 3.0-0.5 MG/3 ML Neb Soln INH SCH ×2 (07:08→11:22)
[2020-02-22 08:13] VITALS: BP 115/62
[2020-02-22 08:14] VITALS: PULSE 75
[2020-02-22] MEDS: Pantoprazole 40 MG Vial IV SCH (08:19)
--- NOTE | 2020-02-22 08:47 | DISCH ---
ADMISSION DIAGNOSES: 1. Left recurrent incarcerated inguinal hernia. 2. History of Hidradenitis suppurativa. DISCHARGE DIAGNOSES: Left inguinal exploration with: 1. Repair of recurrent incarcerated left inguinal hernia with mesh plug. 2. Excision of migrated intraperitoneal mesh. 3. Excision of portion of the left ilioinguinal nerve. 4. Excision of portion of left inguinal hernia. 5. Excision of intraperitoneal nodule. POSTOPERATIVE DIAGNOSES: 1. Recurrent incarcerated left inguinal hernia. 2. Migrated intraperitoneal mesh. 3. Left ilioinguinal nerve and incisional hernia entrapped in scar. 4. Intraperitoneal lesion 1.2 cm adjacent to intraperitoneal mesh. DATE OF SURGERY: 02/21/2020. SURGEON: Ricky Beckham MD. HISTORY: Amairani Kay is a 34-year-old female with left incarcerated incisional hernia associated with pain. After preoperative evaluation and discussion of possible risks and possible complications, she wished to proceed with surgical procedure. HOSPITAL COURSE: Amairani had her surgery on 02/21/2020. She had no operative complications. On postoperative day #1, the pain was managed. Activity good. Oral intake adequate, output adequate. Vital signs were stable. She was able to be discharged to home. PHYSICAL EXAMINATION: GENERAL: Amairani Kay is a pleasant 34-year-old female. VITAL SIGNS: Height is 5 feet 3 inches, weight is 250 pounds. TPR at 0400; 99.2, 68, 16. Blood pressure 118/70. HEENT: Negative. NECK: Supple. HEART: Regular rate and rhythm. LUNGS: Clear. ABDOMEN: Negative. Left inguinal hernia incision dressing dry and intact. EXTREMITIES: Without peripheral edema. DISPOSITION: Discharged to home. CONDITION: Stable and improving. FOLLOWUP APPOINTMENTS: Ricky Beckham MD, at [facility] on 02/29/2020 at 9 a.m. HOME MEDICATIONS: [place] 5/325 mg 1 every 6 hours p.r.n. pain, #28; she is to resume acetaminophen 1000 mg every 4 hours p.r.n. pain; albuterol sulfate/ProAir inhaler 2 puffs every 4 hours p.r.n. wheezing; Proventil nebulizer solution 3 mL every 4 hours p.r.n. shortness of breath; cannabis medical 5 mg oral daily p.r.n. PTSD; vitamin D2 50,000 international units orally Thursday, Thursday, Thursday; Flonase 2 sprays in each nostril p.r.n. for sinus congestion; ibuprofen 800 mg every 6 hours p.r.n. pain; loratadine 10 mg p.r.n. allergies; multivitamin 2 tablets insight oral daily, Ortho-Novum one as directed for control; Zofran 4 mg every 4 hours p.r.n. nausea, vomiting. DIET: Usual diet as tolerated. Drink 8 to 10 glasses of water a day. ACTIVITY: No lifting over 10 pounds for 4 weeks. Other activity: Walk short distance inside your home 6 times a day. Driving: Do not drive for 1 week and while on [employer]. Shower/bathing: May shower. SPECIAL INSTRUCTIONS: Notify provider if any fever, increased pain, nausea, vomiting, swelling, redness or drainage. Wound incision care: Keep site clean and dry. Take dressing off tomorrow, , 02/23/2020. Keep incision covered with gauze and hold in place with very little tape. Use incentive spirometer 10 times every hour while awake. May return to work, 03/20/2020 with no restrictions. Note given to the patient to give to her employer.
--- NOTE | 2020-02-22 14:21 | OR ---
DATE OF PROCEDURE: 02/21/2020 SURGEON: Ricky Beckham MD PREOPERATIVE DIAGNOSIS: Recurrent incarcerated left inguinal hernia with chronic pain. POSTOPERATIVE DIAGNOSES: 1. Recurrent incarcerated left inguinal hernia with chronic pain. 2. Migrated intraperitoneal mesh. 3. Left ilioinguinal and iliohypogastric nerves entrapped in scars associated with previously-placed mesh. 4. Nodular intraperitoneal lesion (1.2 cm) adjacent to intraperitoneal mesh. OPERATIVE PROCEDURE: 1. Left inguinal exploration with: a. Repair of recurrent incarcerated left inguinal hernia with mesh plug technique (04458). b. Excision of migrated intraperitoneal mesh (63569). c. Excision of portion of left ilioinguinal nerve (68169). d. Excision of portion of left iliohypogastric nerve (17908). e. Excision of the intraperitoneal nodule adjacent to migrated intraperitoneal mesh (47120). ANESTHESIA: General. COMMUNITY SUPPORT PROFESSIONAL: Mary Marshall PA-C. INDICATIONS FOR PROCEDURE: The patient is status post a mesh repair of an inguinal hernia. The patient states she has developed quite a bit of chronic pain in that area. A CAT scan was obtained, which showed some incarcerated fat in the area of the probable recurrent hernia along with a mass effect intra-abdominally, most likely some migrated intraperitoneal mesh. My suspicion is that there is some instability related to the mesh and/or there was some nerve entrapment in the scar around the mesh causing the area to be quite painful as well as tender to palpation. Plan is to proceed with left inguinal exploration, most likely removal of the previous mesh and placement of a new intraperitoneal mesh and we will look to see if there any nerves that are in the area, they could be divided to limit postoperative pain. Potential risks of procedure including bleeding, infection, injury to underlying viscera, problems with recurrence of the hernia or persistence or recurrence of the pain over time were reviewed, and the patient wishes to proceed. DETAILS OF PROCEDURE: The patient was taken to the operating room and after general endotracheal anesthesia was induced, the abdomen and groin areas were prepped and draped. The previous incision which was used for both the inguinal hernia as well as previous section was then used, we carried it down through the skin and subcutaneous tissue and through the external oblique aponeurosis. Subaponeurotic flaps were then raised superiorly and inferiorly. The patient was noted to have the mesh having migrated to intraperitoneal location. The musculature was opened up at this point and the mesh gradually excised. There was a small opening in the peritoneum following removal of that mesh, which was then closed with 3-0 Vicryl stitch. Adjacent to the intraperitoneal mesh plug, there was a white oval-shaped nodule of uncertain nature and this measured around 1.2 cm in long axis. This was excised and sent as a separate specimen. It was notable that relatively portions of the iliohypogastric nerve and ilioinguinal nerve both were traveling into the area of the inflammation around the mesh and these were divided and excised out to far lateral aspect of the current incision. A new extra large mesh plug was then selected and placed in the preperitoneal space below the conjoined tendon. This was affixed circumferentially with horizontal mattress sutures of 2-0 Vicryl stitch. The musculature was then closed over this as well and the flat portion of mesh plug system was then placed over that area of repair, and the external oblique aponeurosis was approximated with a 3-0 Vicryl stitch, subcutaneous tissue with 2 layers of 3-0 and 4-0 Vicryl stitch, and the skin with myla. The area was anesthetized with 0.5% Marcaine with lidocaine prior to closure. The patient was taken to the recovery room in satisfactory condition. Physician logging assistant, Mary Marshall, played an essential role in assisting in this case, helping to position the patient, retracting structures as needed, as well as suturing and cutting sutures when indicated. Her presence improved patient safety and decreased operative time. Ricky Beckham MD /[id number]
== END 2020-02-22 11:50 | disposition home or self-care (01) ==
LOC: JP.SDS 05:12 → JP.MS 08:35 → JP.SDS 02-22 11:50
PROVIDERS: ATTEND Surgery
DX: K40.31 Unilateral inguinal hernia, with obstruction, without gangrene, recurrent (principal); G89.29 Other chronic pain; T85.698A Other mechanical complication of other specified internal prosthetic devices, implants and grafts, initial encounter; G57.82 Other specified mononeuropathies of left lower limb; J45.909 Unspecified asthma, uncomplicated; Z87.891 Personal history of nicotine dependence; Z98.890 Other specified postprocedural states
CPT/HCPCS: 49521; 64784; 81025; 94640; A9270; C1781; C9113; J0330; J0690; J1100; J1885; J2185; J2405; J2704; J2710; J3010; J3410; J3490; J7121; 88300; 88302; 88305; J7620-GY

== ENCOUNTER 2020-05-07 10:41 | Emergency (ER) | payer MEDICAID ==
--- NOTE | 2020-05-07 11:06 | EDM.PDOC ---
ED HPI GENERAL MEDICAL PROBLEM - General Chief Complaint: Abdominal Pain Stated Complaint: ABDOMINAL PAIN Time Seen by Provider: 05/07/20 11:06 Source of Information: Reports: Patient History Limitations: Reports: No Limitations - History of Present Illness INITIAL COMMENTS - FREE TEXT/NARRATIVE: 34 year old female present to [place] ER for evaluation of multiple symptoms including fever, headache, sore throat, abdominal pain, diarrhea with chills and sweats. Patient denies cough or shortness of breath. Patient has been ill for nearly 2 weeks: initial symptoms of headache then diarrhea for nearly 1 week with 6 very loose stools per 24 hours. Patient has nausea and vomiting since Thursday with Virtual visit on Thursday for symptoms (without fever). Patient spiked a temperature over the weekend 101.8 and 102.3 with abdominal pain across lower abdomen. Patient took Tylenol last night and Tylenol w Zofran this am with normal temperature. Patient called clinic about worsening symptoms and recommended ER visit today. Patient had had ureteral stones in the past which feels similar today in additional to left hernia repair which also feels similar. Patient states the pain is deep ache with sharp shooting pain which radiated to right side of abdomen in down in the bilateral groin area. Abdomen Pain Score (Numeric/FACES): 9 - Related Data Allergies Allergy/AdvReac Type Severity Reaction Status Date / Time naproxen Allergy Intermediate Hives Verified 05/07/20 11:08 coconut oil Allergy Other Verified 05/07/20 11:08 cyclobenzaprine Allergy Tachycardia Verified 05/07/20 11:08 [From Flexeril] Latex, Natural Rubber Allergy Hives Verified 05/07/20 11:08 tramadol Allergy Hives Verified 05/07/20 11:08 Home Meds: Home Meds Albuterol Sulfate [Proair Hfa] 2 puff INH Q4H PRN 03/11/14 [History] Fluticasone Propionate [Flonase] 2 spray INGRID DAILY PRN 10/12/17 [History] Ibuprofen [Motrin] 800 mg PO Q6H PRN 04/11/19 [History] Cannabidiol (Cbd) Extract [Cannabis (Medical)] 5 mg PO DAILY PRN 11/20/19 [History] Ergocalciferol (Vitamin D2) [Vitamin D2] 50,000 unit PO .MWF 03/11/20 [History] Ondansetron [Zofran ODT] 4 mg PO Q4H PRN 01/25/20 [History] Albuterol [Proventil Neb Soln] 3 ml INH Q4HR PRN 02/17/20 [History] Loratadine 10 mg PO DAILY PRN 02/17/20 [History] Multivitamin [Multiple Vitamins] 2 tab PO DAILY 02/17/20 [History] Acetaminophen [Pain Relief Extra Strength] 1,000 mg PO Q4HR PRN 02/21/20 [History] Acetaminophen/HYDROcodone [Spencer 325-5 MG] 1 - 2 tab PO Q6H PRN 2 Days #6 tab 05/07/20 [Rx] Promethazine [Phenergan] 25 mg PO Q6H PRN #15 tab 05/07/20 [Rx] Past Medical History HEENT History: Reports: Allergic Rhinitis, Glaucoma, Impaired Vision Other HEENT History: tubes in ears as young child. Possible glaucoma (needs further evaluation); wears glasses Respiratory History: Reports: Asthma Gastrointestinal History: Reports: Chronic Constipation, GERD Genitourinary History: Reports: None DIRECTOR FEDERAL History: Reports: , Spontaneous Other DIRECTOR FEDERAL History: history of IUD in the past; takes po control now Musculoskeletal History: Reports: Arthritis Neurological History: Reports: Headaches, Chronic, Migraines Psychiatric History: Reports: Anxiety, Depression, Panic Attack Endocrine/Metabolic History: Reports: Obesity/BMI 30+ Dermatologic History: Reports: Other (See Below) Other Dermatologic History: hydradenitis bilat groin/bilat armpit/breast; buttocks; - Infectious Disease History Infectious Disease History: Reports: Chicken Pox, Influenza - Past Surgical History Head Surgeries/Procedures: Reports: None HEENT Surgical History: Reports: Myringotomy w Tube(s) Respiratory Surgical History: Reports: None GI Surgical History: Reports: Hernia, Abdominal, Hernia Repair/Other Other GI Surgeries/Procedures: hernia repair Mar 30 2019, hernia repair july 04 2019 Female Surgical History: Reports: Section Endocrine Surgical History: Reports: None Neurological Surgical History: Reports: None Musculoskeletal Surgical History: Reports: None Dermatological Surgical History: Reports: None Social & Family History - Family History Family Medical History: Noncontributory Cardiac: Reports: Hypertension Respiratory: Reports: Asthma Psychiatric: Reports: Anxiety, Depression Endocrine/Metabolic: Reports: Diabetes, Type I Oncologic: Reports: Breast, Liver - Caffeine Use Caffeine Use: Reports: Soda Other Caffeine Use: 1 pop per day. Caffeine Use Comment: 1 pop/daily ED ROS GENERAL - Review of Systems Review Of Systems: Comprehensive ROS is negative, except as noted in HPI. ED EXAM, GENERAL - Physical Exam Exam: See Below Exam Limited By: No Limitations General Appearance: Alert, WD/WN, Moderate Distress (lower abdominal pain left worsen than right. Patient appear flush and feels clammy) Eye Exam: Bilateral Eye: EOMI, Normal Inspection Ears: Normal External Exam, Hearing Grossly Normal Nose: Normal Inspection, Normal Mucosa, No Blood Throat/Mouth: Normal Inspection, Normal Lips, Normal Teeth, Normal Gums, Normal Oropharynx, Normal Voice, No Airway Compromise Head: Atraumatic, Normocephalic Neck: Normal Inspection, Supple, Non-Tender, Full Range of Motion Respiratory/Chest: No Respiratory Distress, Lungs Clear, Normal Breath Sounds, No Accessory Muscle Use, Chest Non-Tender Cardiovascular: Normal Peripheral Pulses, Regular Rate, Rhythm, No Edema GI/Abdominal: Soft, No Organomegaly, No Distention, Tender (right upper/epigastric area and across lower abdomen left worsen than right. ) (Female) Exam: Deferred Rectal (Female) Exam: Deferred Extremities: Normal Inspection, Normal Range of Motion, Non-Tender, Normal Capillary Refill, No Pedal Edema Neurological: Alert, Oriented, CN II-XII Intact, Normal Cognition, Normal Gait, Normal Reflexes, No Motor/Sensory Deficits Psychiatric: Normal Affect, Normal Mood Course - Vital Signs Last Recorded V/S: Last Vital Signs Temp 35.4 C L 05/07/20 11:07 Pulse 57 L 05/07/20 13:20 Resp 18 05/07/20 13:20 BP 109/61 05/07/20 13:20 Pulse Ox 98 05/07/20 13:20 - Orders/Labs/Meds Orders: Active Orders 24 hr Category Date Time Status Occlusive Dressing [Wound Care] [RC] DAILY Care 05/07/20 12:17 Active Peripheral IV Care [RC] . DIRECTED Care 05/07/20 11:30 Active C Diff [CLOS DIFFICILE PCR W/REFLEX] [] Stat Lab 05/07/20 12:48 Ordered CULTURE STOOL + SHIGATOX [] Stat Lab 05/07/20 12:48 Ordered CULTURE STREP A CONFIRMATION [] Stat Lab 05/07/20 12:43 Results STREP SCRN A RAPID W CULT CONF [] Stat Lab 05/07/20 12:43 Results Sodium Chloride 0.9% [Normal Saline] 1,000 ml Med 05/07/20 11:30 Active IV ASDIRECTED Sodium Chloride 0.9% [Saline Flush] Med 05/07/20 11:29 Active 10 ml FLUSH ASDIRECTED PRN Peripheral IV Insertion Adult [OM.PC] Urgent Oth 05/07/20 11:29 Ordered Medication Orders Sodium Chloride (Normal Saline) 1,000 mls @ 1,000 mls/hr IV ASDIRECTED CHITRA Last Admin: 05/07/20 12:32 Dose: 1,000 mls/hr Documented by: MALACHI Sodium Chloride (Saline Flush) 10 ml FLUSH ASDIRECTED PRN PRN Reason: Keep Vein Open Last Admin: 05/07/20 12:48 Dose: 10 ml Documented by: KAY Labs: Laboratory Tests 05/07/20 05/07/20 05/07/20 Range/Units 11:18 11:50 11:50 WBC 8.9 (4.5-11.0) K/uL RBC 4.36 (3.30-5.50) M/uL Hgb 13.4 (12.0-15.0) g/dL Hct 41.3 (36.0-48.0) % MCV 95 (80-98) fL MCH 31 (27-31) pg MCHC 32 (32-36) % Plt Count 256 (150-400) K/uL Neut % (Auto) 71 H (36-66) % Lymph % (Auto) 19 L (24-44) % [place] % (Auto) 8 H (2-6) % Eos % (Auto) 2 (2-4) % Baso % (Auto) 0 (0-1) % Sodium 142 (140-148) mmol/L Potassium 4.1 (3.6-5.2) mmol/L Chloride 107 (100-108) mmol/L Carbon Dioxide 27 (21-32) mmol/L Anion Gap 8.2 (5.0-14.0) mmol/L BUN 7 (7-18) mg/dL Creatinine 1.0 (0.6-1.0) mg/dL Est Cr Clr Drug Dosing 66.19 mL/min Estimated GFR (MDRD) > 60 (>60) Glucose 105 (74-106) mg/dL Calcium 8.4 L (8.5-10.1) mg/dL Total Bilirubin 0.4 D (0.2-1.0) mg/dL Direct Bilirubin 0.08 (0.0-0.2) mg/dL Indirect Bilirubin TNP AST 14 L (15-37) U/L ALT 30 (12-78) U/L Alkaline Phosphatase 49 (46-116) U/L C-Reactive Protein 0.17 (0.0-0.3) mg/dL Total Protein 6.9 (6.4-8.2) g/dL Albumin 3.4 (3.4-5.0) g/dL Globulin 3.5 (2.3-3.5) g/dL Albumin/Globulin Ratio 1.0 L (1.2-2.2) Lipase 75 (73-393) U/L Urine Color (YELLOW) Urine Appearance (CLEAR) Urine pH (5.0-8.0) Ur Specific [place] (1.008-1.030) Urine Protein (NEGATIVE) mg/dL Urine Glucose (UA) (NEGATIVE) mg/dL Urine Ketones (NEGATIVE) mg/dL Urine Occult Blood (NEGATIVE) Urine Nitrite (NEGATIVE) Urine Bilirubin (NEGATIVE) Urine Urobilinogen (0.2-1.0) EU/dL Ur Leukocyte Esterase (NEGATIVE) Urine RBC (0-5) Urine WBC (0-5) Ur Epithelial Cells Amorphous Sediment Urine Bacteria Urine Mucus Urine HCG, Qual Negative 05/07/20 Range/Units 12:00 WBC (4.5-11.0) K/uL RBC (3.30-5.50) M/uL Hgb (12.0-15.0) g/dL Hct (36.0-48.0) % MCV (80-98) fL MCH (27-31) pg MCHC (32-36) % Plt Count (150-400) K/uL Neut % (Auto) (36-66) % Lymph % (Auto) (24-44) % [place] % (Auto) (2-6) % Eos % (Auto) (2-4) % Baso % (Auto) (0-1) % Sodium (140-148) mmol/L Potassium (3.6-5.2) mmol/L Chloride (100-108) mmol/L Carbon Dioxide (21-32) mmol/L Anion Gap (5.0-14.0) mmol/L BUN (7-18) mg/dL Creatinine (0.6-1.0) mg/dL Est Cr Clr Drug Dosing mL/min Estimated GFR (MDRD) (>60) Glucose (74-106) mg/dL Calcium (8.5-10.1) mg/dL Total Bilirubin (0.2-1.0) mg/dL Direct Bilirubin (0.0-0.2) mg/dL Indirect Bilirubin AST (15-37) U/L ALT (12-78) U/L Alkaline Phosphatase (46-116) U/L C-Reactive Protein (0.0-0.3) mg/dL Total Protein (6.4-8.2) g/dL Albumin (3.4-5.0) g/dL Globulin (2.3-3.5) g/dL Albumin/Globulin Ratio (1.2-2.2) Lipase (73-393) U/L Urine Color Yellow (YELLOW) Urine Appearance Cloudy A (CLEAR) Urine pH 5.0 (5.0-8.0) Ur Specific [place] 1.030 (1.008-1.030) Urine Protein Negative (NEGATIVE) mg/dL Urine Glucose (UA) Negative (NEGATIVE) mg/dL Urine Ketones Negative (NEGATIVE) mg/dL Urine Occult Blood Negative (NEGATIVE) Urine Nitrite Negative (NEGATIVE) Urine Bilirubin Negative (NEGATIVE) Urine Urobilinogen 0.2 (0.2-1.0) EU/dL Ur Leukocyte Esterase Negative (NEGATIVE) Urine RBC 0-5 (0-5) Urine WBC 0-5 (0-5) Ur Epithelial Cells Many Amorphous Sediment Moderate Urine Bacteria Not seen Urine Mucus Not seen Urine HCG, Qual Meds: Medications Generic Name Dose Route Start Last Admin Trade Name Freq PRN Reason Stop Dose Admin Sodium Chloride 1,000 mls @ 1,000 mls/hr 05/07/20 11:30 05/07/20 12:32 Normal Saline IV 1,000 mls/hr ASDIRECTED CHITRA Administration Sodium Chloride 10 ml 05/07/20 11:29 05/07/20 12:48 Saline Flush FLUSH 10 ml ASDIRECTED PRN Administration Keep Vein Open Discontinued Medications Generic Name Dose Route Start Last Admin Trade Name Margret PRN Reason Stop Dose Admin Hydrocodone Bitart/Acetaminophen 1 tab 05/07/20 12:55 05/07/20 13:39 Spencer 325-5 Mg PO 05/07/20 12:56 1 tab ONETIME ONE Administration Diphenhydramine HCl 25 mg 05/07/20 13:23 05/07/20 13:42 Benadryl IVPUSH 05/07/20 13:24 25 mg ONETIME ONE Administration Fentanyl 25 mcg 05/07/20 12:55 05/07/20 13:40 Sublimaze IVPUSH 05/07/20 12:56 25 mcg ONETIME ONE Administration Ketorolac Tromethamine 30 mg 05/07/20 11:29 05/07/20 12:46 Toradol IVPUSH 05/07/20 11:30 30 mg ONETIME ONE Administration Ondansetron HCl 4 mg 05/07/20 11:29 05/07/20 12:47 Zofran IVPUSH 05/07/20 11:30 4 mg ONETIME ONE Administration Ondansetron HCl 4 mg 05/07/20 13:22 05/07/20 13:40 Zofran Odt PO 05/07/20 13:23 4 mg ONETIME ONE Administration - Radiology Interpretation Free Text/Narrative:: CHEST PA: No acute cardiopulmonary abnormalities noted. ABDOMINAL SERIES (Flat/Upright): Nonspecific Bowel Gas Pattern noted. Images read by myself during ER visit. Radiology report: reviewed. - Re-Assessments/Exams Free Text/Narrative Re-Assessment/Exam: Reviewed current test results with patient: Blood work showed on acute concerning findings: WBC WNL, CRP WNL decreasing likelihood of acute abdominal infection or surgical concern at this time. Urine is negative for and no signs of infection or blood which would indicate ureteral stone. Abdominal series with CXR no acute concerning findings. Previous CT report reviewed: no report of kidney stones decreasing likelihood of cause for acute symptoms. Completion of IVF and pain management at this time. Patient may benefit from follow-up with Dr Beckham due to recent abdominal surgery. Symptoms may be due to gastroenteritis, stool studies requested. 05/07/20 13:00 Patient states pain and nausea have continued. Patient has a history of migraines which last for days at times. Patient requests additional medications for nausea and pain. Discussed the possibility of abdominal migraine the cause of symptoms today. 05/07/20 13:28 Departure - Departure Time of Disposition: 14:23 Disposition: Home, Self-Care 01 Clinical Impression: Abdominal pain, Fever, Diarrhea - Discharge Information Prescriptions: Acetaminophen/HYDROcodone [Spencer 325-5 MG] 1 - 2 tab PO Q6H PRN 2 Days #6 tab PRN Reason: Pain (Severe 7-10) Promethazine [Phenergan] 25 mg PO Q6H PRN #15 tab PRN Reason: Nausea/Vomiting Instructions: Diarrhea, Adult, Abdominal Pain, Adult, Food Choices to Help Relieve Diarrhea, Adult, Pain Without a Known Cause Referrals: Sonal Javier DO [Primary Care Provider] - Forms: ED Department Discharge Additional Instructions: ABDOMINAL PAIN 1. Increase fluid intake.Phenergan 25mg #15 INSTYMED or zofran(at home) as directed for nausea and vomiting. 2. Tylenol (Acetaminophen) every 6-8 hours for mild pain or Narcotic pain medications if offered for moderate to severe pain. NORCO #6 INSTYMED 3. Ibuprofen every 6-8 hours or Naproxen every 8-12 hours with food as needed for pain and swelling. 4. Warm compress to area 15-20 min 3-4 times per day. If left on too long muscle pain may get worse after removing heat. 5. Follow abdominal pain, diarrhea and other patient instructions given. 6. See Dr Beckham/PCP in 12-24 hrs if symptoms worsen or this week if unchanged or not improving. 7. Further work-up with pelvic examination/pelvic US could be consider in the future if not improving and no concerns regarding abdominal wall or diarrhea found. NOTE FOR WORK WRITTEN. Patient is restricted by insurance to only have one provider approve medications. Called clinic provider Dr Javier to approve Spencer and Phenergan with close follow-up this week with general surgeon and PCP for follow-up. Medication list will be faxed to clinic for approval Sepsis Event Note (ED) - Focused Exam Vital Signs: Vital Signs Temp Pulse Resp BP Pulse Ox 05/07/20 13:20 57 L 18 109/61 98 05/07/20 12:50 53 L 117/54 L 05/07/20 11:07 35.4 C L 82 12 137/89 98 05/07/20 10:56 35.4 C L 82 12 137/89 98 - My Orders Last 24 Hours: My Active Orders 05/07/20 11:29 Sodium Chloride 0.9% [Saline Flush] 10 ml FLUSH ASDIRECTED PRN Peripheral IV Insertion Adult [OM.PC] Urgent 05/07/20 11:30 Peripheral IV Care [RC] . DIRECTED Sodium Chloride 0.9% [Normal Saline] 1,000 ml IV ASDIRECTED 05/07/20 12:17 Occlusive Dressing [Wound Care] [RC] DAILY 05/07/20 12:43 CULTURE STREP A CONFIRMATION [RM] Stat STREP SCRN A RAPID W CULT CONF [RM] Stat 05/07/20 12:48 C Diff [CLOS DIFFICILE PCR W/REFLEX] [RM] Stat CULTURE STOOL + SHIGATOX [RM] Stat - Assessment/Plan Last 24 Hours: My Active Orders 05/07/20 11:29 Sodium Chloride 0.9% [Saline Flush] 10 ml FLUSH ASDIRECTED PRN Peripheral IV Insertion Adult [OM.PC] Urgent 05/07/20 11:30 Peripheral IV Care [RC] . DIRECTED Sodium Chloride 0.9% [Normal Saline] 1,000 ml IV ASDIRECTED 05/07/20 12:17 Occlusive Dressing [Wound Care] [RC] DAILY 05/07/20 12:43 CULTURE STREP A CONFIRMATION [RM] Stat STREP SCRN A RAPID W CULT CONF [RM] Stat 05/07/20 12:48 C Diff [CLOS DIFFICILE PCR W/REFLEX] [RM] Stat CULTURE STOOL + SHIGATOX [RM] Stat
[2020-05-07] MEDS ORDERED: Ondansetron 4 MG/2 ML SDV IVPUSH ONE (11:29)
[2020-05-07] MEDS ORDERED: Ketorolac 30 MG/ML SDV IVPUSH ONE (11:29)
[2020-05-07] MEDS ORDERED: Sodium Chloride 0.9% 10 ML Syringe FLUSH PRN (11:29)
[2020-05-07] MEDS ORDERED: Sodium Chloride 0.9% 1,000 ML IV SCH (11:30)
--- NOTE | 2020-05-07 12:33 | CR ---
Abdomen Series w Chest 1V CLINICAL HISTORY: History of obstruction and hernia FINDINGS: Heart size is normal. Lungs are clear. No free air is identified. Small intestinal configuration is nonacute. There is a ringlike calcification in the left comparison spinal region. This is unchanged since the February 03, 2020 and is likely retroperitoneal. IMPRESSION: Nonacute intestinal gas pattern
[2020-05-07] MEDS ORDERED: fentaNYL 100 MCG/2 ML SDV IVPUSH ONE (12:55)
[2020-05-07] MEDS ORDERED: Acetaminophen/HYDROcodone 325-5 MG Tab PO ONE (12:55)
[2020-05-07] MEDS ORDERED: Ondansetron 4 MG Tab.DIS PO ONE (13:22)
[2020-05-07] MEDS ORDERED: diphenhydrAMINE 50 MG/ML SDV IVPUSH ONE (13:23)
[2020-05-07 13:45] VITALS: BP 109/61; PULSE 57
== END 2020-05-07 15:30 | disposition home or self-care (01) ==
LOC: JP.ED 10:41
DX: R10.11 Right upper quadrant pain (principal); R10.13 Epigastric pain; R50.9 Fever, unspecified; R19.7 Diarrhea, unspecified; J45.909 Unspecified asthma, uncomplicated; E66.9 Obesity, unspecified; Z68.41 Body mass index [BMI] 40.0-44.9, adult; Z88.6 Allergy status to analgesic agent; Z91.09 Other allergy status, other than to drugs and biological substances; Z88.8 Allergy status to other drugs, medicaments and biological substances; Z91.040 Latex allergy status; Z88.5 Allergy status to narcotic agent; Z79.899 Other long term (current) drug therapy
CPT/HCPCS: 36415; 74022; 80048; 80076; 81001; 81025; 83690; 85025; 86140; 87081; 87880; 96361; 96374; 96375; 99284; A9270; J1200; J1885; J2405; J3010; J7030

== ENCOUNTER 2020-06-17 12:42 | Emergency (ER) | payer MEDICAID ==
[2020-06-17 13:11] VITALS: BP 135/84; PULSE 72
--- NOTE | 2020-06-17 13:47 | EDM.PDOC ---
ED HPI GENERAL MEDICAL PROBLEM - General Chief Complaint: General Stated Complaint: R THUMB PAIN Time Seen by Provider: 06/17/20 13:20 Source of Information: Reports: Patient History Limitations: Reports: No Limitations - History of Present Illness INITIAL COMMENTS - FREE TEXT/NARRATIVE: 35-year-old female that partially evulsed the right thumbnail off several weeks ago, had been doing fine but now has developed pain and inflammation over the past 24 to 36 hours of the thumb. It is erythematous and extremely tender. No new trauma. Onset: Gradual Duration: Hour(s): (36 hours) Location: Reports: Upper Extremity, Right Associated Symptoms: Reports: No Other Symptoms Left Finger-Thumb Pain Score (Numeric/FACES): 9 - Related Data Allergies Allergy/AdvReac Type Severity Reaction Status Date / Time naproxen Allergy Intermediate Hives Verified 06/17/20 13:13 coconut oil Allergy Other Verified 06/17/20 13:13 cyclobenzaprine Allergy Tachycardia Verified 06/17/20 13:13 [From Flexeril] Latex, Natural Rubber Allergy Hives Verified 06/17/20 13:13 tramadol Allergy Hives Verified 06/17/20 13:13 Home Meds: Home Meds Albuterol Sulfate [Proair Hfa] 2 puff INH Q4H PRN 03/11/14 [History] Fluticasone Propionate [Flonase] 2 spray INGRID DAILY PRN 10/12/17 [History] Ibuprofen [Motrin] 800 mg PO Q6H PRN 04/11/19 [History] Cannabidiol (Cbd) Extract [Cannabis (Medical)] 5 mg PO DAILY PRN 11/20/19 [History] Ergocalciferol (Vitamin D2) [Vitamin D2] 50,000 unit PO .MWF 01/25/20 [History] Ondansetron [Zofran ODT] 4 mg PO Q4H PRN 01/25/20 [History] Albuterol [Proventil Neb Soln] 3 ml INH Q4HR PRN 02/17/20 [History] Loratadine 10 mg PO DAILY PRN 02/17/20 [History] Multivitamin [Multiple Vitamins] 2 tab PO DAILY 02/17/20 [History] Acetaminophen [Pain Relief Extra Strength] 1,000 mg PO Q4HR PRN 02/21/20 [History] Promethazine [Phenergan] 25 mg PO Q6H PRN #15 tab 05/07/20 [Rx] Past Medical History HEENT History: Reports: Allergic Rhinitis, Glaucoma, Impaired Vision Other HEENT History: tubes in ears as young child. 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 History: Reports: , Spontaneous Other ELEMENTARY SCHOOL BAND DIRECTOR History: history of IUD in the past; takes po control now Musculoskeletal History: Reports: Arthritis Neurological History: Reports: Headaches, Chronic, Migraines Psychiatric History: Reports: Anxiety, Depression, Panic Attack Endocrine/Metabolic History: Reports: Obesity/BMI 30+ Dermatologic History: Reports: Other (See Below) Other Dermatologic History: hydradenitis bilat groin/bilat armpit/breast; buttocks; - Infectious Disease History Infectious Disease History: Reports: Chicken Pox, Influenza - Past Surgical History Head Surgeries/Procedures: Reports: None HEENT Surgical History: Reports: Myringotomy w Tube(s) Respiratory Surgical History: Reports: None GI Surgical History: Reports: Hernia, Abdominal, Hernia Repair/Other Other GI Surgeries/Procedures: hernia repair Mar 30 2019, hernia repair july 04 2019 Female Surgical History: Reports: Section Endocrine Surgical History: Reports: None Neurological Surgical History: Reports: None Musculoskeletal Surgical History: Reports: None Dermatological Surgical History: Reports: None Social & Family History - Family History Family Medical History: Noncontributory Cardiac: Reports: Hypertension Respiratory: Reports: Asthma Psychiatric: Reports: Anxiety, Depression Endocrine/Metabolic: Reports: Diabetes, Type I Oncologic: Reports: Breast, Liver - Tobacco Use Smoking Status *Q: Light Tobacco Smoker Years of Tobacco use: 15 Packs/Tins Daily: 0.1 - Caffeine Use Caffeine Use: Reports: Soda Other Caffeine Use: 1 pop per day. Caffeine Use Comment: 1 pop/daily - Recreational Drug Use Recreational Drug Use: No ED ROS GENERAL - Review of Systems Review Of Systems: See Below Constitutional: Denies: Fever, Chills Respiratory: Denies: Shortness of Breath Cardiovascular: Denies: Chest Pain GI/Abdominal: Denies: Abdominal Pain, Nausea, Vomiting Skin: Reports: Erythema Neurological: Denies: Paresthesia ED EXAM, GENERAL - Physical Exam Exam: See Below Exam Limited By: No Limitations General Appearance: Alert, No Apparent Distress Head: Atraumatic Respiratory/Chest: No Respiratory Distress Extremities: Other (Exam is otherwise limited to the right hand. She has erythema around the ulnar aspect of the thumbnail where there was a previous evulsion. It is moderately swollen and there is exquisite tenderness to palpation.) Neurological: Alert, Oriented Psychiatric: Normal Affect, Normal Mood Course - Vital Signs Last Recorded V/S: Last Vital Signs Temp 97.7 F 06/17/20 13:18 Pulse 72 06/17/20 13:18 Resp 16 06/17/20 13:18 BP 135/84 06/17/20 13:18 Pulse Ox 96 06/17/20 13:18 - Orders/Labs/Meds Meds: Medications Discontinued Medications Generic Name Dose Route Start Last Admin Trade Name Margret PRN Reason Stop Dose Admin Hydrocodone Bitart/Acetaminophen 1 tab 06/17/20 14:11 06/17/20 14:18 Walnut 325-10 Mg PO 06/17/20 14:12 1 tab ONETIME ONE Administration Clindamycin HCl 300 mg 06/17/20 14:10 06/17/20 14:18 Cleocin PO 06/17/20 14:11 300 mg ONETIME ONE Administration Clindamycin HCl 300 mg 06/17/20 14:11 06/17/20 14:18 Cleocin PO 06/17/20 14:12 300 mg ONETIME ONE Administration - Re-Assessments/Exams Free Text/Narrative Re-Assessment/Exam: 06/17/20 13:45 She is developing an inflammatory response, likely infection of the paronychia of the thumb secondary to the recent trauma. She was placed on Clindamycin 300 mg 3 times a day for the next 5 days and given a thumb protective splint. Also 10 hydrocodone for extra pain control. Recheck in the next 48 hours if worsening instead of improving. Departure - Departure Time of Disposition: 14:20 Disposition: Home, Self-Care 01 Clinical Impression: Paronychia of finger of right hand - Discharge Information Instructions: Paronychia, [id number] Referrals: Sonal Javier DO [Primary Care Provider] - Forms: ED Department Discharge Care Plan Goals: Soaking the thumb in warm soapy water may be helpful. Take 2 pills of antibiotic 3 times a day until gone, protect the thumb from further trauma and take pain medication as prescribed. Recheck in 2 to 3 days if not improving. Sepsis Event Note (ED) - Evaluation Sepsis Screening Result: No Definite Risk - Focused Exam Vital Signs: Vital Signs Temp Pulse Resp BP Pulse Ox 06/17/20 13:18 97.7 F 72 16 135/84 96 06/17/20 13:10 97.7 F 72 16 135/84 96
[2020-06-17] MEDS ORDERED: Clindamycin HCl 150 MG Cap PO ONE ×2 (14:10→14:11)
[2020-06-17] MEDS ORDERED: Acetaminophen/HYDROcodone 325-10 MG Tab PO ONE (14:11)
== END 2020-06-17 14:20 | disposition home or self-care (01) ==
LOC: JP.ED 12:42
DX: L03.011 Cellulitis of right finger (principal); J45.909 Unspecified asthma, uncomplicated; E66.9 Obesity, unspecified; F17.290 Nicotine dependence, other tobacco product, uncomplicated; Z88.8 Allergy status to other drugs, medicaments and biological substances; Z91.040 Latex allergy status; Z88.5 Allergy status to narcotic agent; Z91.018 Allergy to other foods; Z98.890 Other specified postprocedural states; Z68.38 Body mass index [BMI] 38.0-38.9, adult
CPT/HCPCS: 99283; A9270

== ENCOUNTER 2020-12-14 07:48 | Inpatient (IN) | payer MEDICAID ==
[~2020-12-14 07:48] MED LIST changes: +Meropenem 500 MG SDV ONE; -Midazolam 1 MG/ML 2 ML SDV ONE; -Propofol 200 MG/20 ML SDV ONE; -fentaNYL 100 MCG/2 ML SDV ONE
[2020-12-14] MEDS ORDERED: Propofol 200 MG/20 ML SDV ONE (07:55)
[2020-12-14] MEDS ORDERED: fentaNYL 250 MCG/5 ML SDV ONE ×2 (07:55→11:14)
[2020-12-14] MEDS ORDERED: Ondansetron 4 MG/2 ML SDV ONE (07:55)
[2020-12-14] MEDS ORDERED: Dexamethasone 4 MG/ML SDV ONE (07:55)
[2020-12-14] MEDS ORDERED: Glycopyrrolate 0.2 MG/ML 5 ML MDV ONE (07:55)
[2020-12-14] MEDS ORDERED: Succinylcholine 200 MG/10 ML MDV ONE (07:55)
[2020-12-14] MEDS ORDERED: Rocuronium 50 MG/5 ML Vial ONE (07:55)
[2020-12-14] MEDS ORDERED: Neostigmine Methylsulfate 1 MG/ML 5 ML Syringe ONE (07:55)
[2020-12-14] MEDS ORDERED: Acetaminophen 500 MG Tab PO ONE (08:00)
[2020-12-14] MEDS ORDERED: Dextrose 5%-Lactated Ringers 1,000 ML IV SCH (08:30)
[2020-12-14] MEDS ORDERED: ceFAZolin 2 GM in Premix Bag 1 BAG IV ONE (08:30)
[2020-12-14] MEDS ORDERED: Albuterol/Ipratropium 3.0-0.5 MG/3 ML Neb Soln NEB ONE (08:30)
[2020-12-14] MEDS ORDERED: Ketamine 50 MG in Sodium Chloride 0.9% 49.5 ML IV SCH (10:00)
[2020-12-14] MEDS ORDERED: Ketamine 500 MG/5 ML MDV IV SCH (10:00)
[2020-12-14] MEDS ORDERED: Naloxone 0.4 MG/ML SDV IVPUSH PRN (11:51)
[2020-12-14] MEDS ORDERED: Ondansetron 4 MG/2 ML SDV IVPUSH PRN ×2 (11:51→13:35)
[2020-12-14] MEDS ORDERED: diphenhydrAMINE 25 MG Cap PO PRN (11:51)
[2020-12-14] MEDS ORDERED: diphenhydrAMINE 50 MG/ML SDV IVPUSH PRN (11:51)
[2020-12-14] MEDS ORDERED: HYDROmorphone/Normal Saline 15 MG/30 ML PCA IV PRN (11:51)
[2020-12-14] MEDS ORDERED: Naloxone 0.4 MG/ML SDV IV PRN (12:00)
[2020-12-14] MEDS ORDERED: hydrOXYzine HCL 100 MG/2 ML SDV IM PRN (13:31)
[2020-12-14] MEDS ORDERED: Promethazine 25 MG/ML SDV IV PRN (13:36)
[2020-12-14] MEDS ORDERED: Albuterol/Ipratropium 3.0-0.5 MG/3 ML Neb Soln INH PRN (13:37)
[2020-12-14] MEDS ORDERED: Methocarbamol 500 MG Tab PO PRN (13:38)
[2020-12-14] MEDS: Albuterol/Ipratropium 3.0-0.5 MG/3 ML Neb Soln INH SCH ×2 (14:35→21:02)
[2020-12-14] MEDS: ceFAZolin 2 GM in Premix Bag 1 BAG IV SCH ×2 (15:43→23:02)
[2020-12-14] MEDS: Latanoprost 0.005% Ophth Soln 2.5 ML Bottle EYEBOTH SCH (20:59)
[2020-12-14] MEDS: Dextrose 5%-Lactated Ringers 1,000 ML IV SCH (23:00)
[2020-12-15] MEDS: Dextrose 5%-Lactated Ringers 1,000 ML IV SCH (06:00)
[2020-12-15] MEDS ORDERED: Ondansetron 4 MG Tab.DIS PO PRN (06:49)
[2020-12-15] MEDS ORDERED: hydrOXYzine HCl 25 MG Tab PO PRN (06:52)
[2020-12-15] MEDS: Albuterol/Ipratropium 3.0-0.5 MG/3 ML Neb Soln INH SCH ×4 (06:59→21:26)
[2020-12-15] MEDS ORDERED: Dextrose 5%-Lactated Ringers 1,000 ML IV SCH (07:00)
[2020-12-15] MEDS: oxyCODONE 5 MG Tab PO PRN ×3 (07:46→19:48)
[2020-12-15] MEDS: Docusate Sodium 100 MG Cap PO SCH ×2 (09:19→21:26)
[2020-12-15] MEDS: Acetaminophen 325 MG Tab PO SCH ×3 (09:19→19:49)
[2020-12-15] MEDS: Bisacodyl 5 MG Tab PO SCH ×2 (09:20→21:26)
[2020-12-15] MEDS: ceFAZolin 2 GM in Premix Bag 1 BAG IV SCH (09:26)
[2020-12-15] MEDS ORDERED: Benzocaine/Cetylpyridinium/Menthol Lozenge MUCMEM PRN (19:17)
[2020-12-15] MEDS: Latanoprost 0.005% Ophth Soln 2.5 ML Bottle EYEBOTH SCH (21:27)
[2020-12-16] MEDS: Acetaminophen 325 MG Tab PO SCH ×2 (02:04→07:52)
[2020-12-16] MEDS: oxyCODONE 5 MG Tab PO PRN ×2 (02:04→08:17)
[2020-12-16 07:01] VITALS: BP 121/66; PULSE 70
[2020-12-16] MEDS: Albuterol/Ipratropium 3.0-0.5 MG/3 ML Neb Soln INH SCH (07:01)
[2020-12-16] MEDS: Bisacodyl 5 MG Tab PO SCH (08:18)
[2020-12-16] MEDS: Docusate Sodium 100 MG Cap PO SCH (08:18)
--- NOTE | 2020-12-17 07:06 | DISCH ---
ADMISSION DIAGNOSES: 1. Recurrent incarcerated incisional hernia. 2. Recurrent incarcerated left inguinal hernia. 3. Asthma. 4. Morbid obesity, BMI 43. 5. Migraine headaches. 6. Nystagmus. 7. Anxiety. 8. Depression. DISCHARGE DIAGNOSES: 1. Open repair of recurrent incarcerated incisional hernia with mesh (mesh plug). 2. Left inguinal exploration. a. Repair of recurrent left inguinal hernia. b. Division of left inguinal ileal nerve. POSTOPERATIVE DIAGNOSES: 1. Recurrent incarcerated incisional hernia. 2. Recurrent incarcerated left inguinal hernia, indirect. 3. Left ilioinguinal entrapment and scar. Date of procedure 12/14/2020. Surgeon: Ricky Beckham MD. HISTORY: Amairani Kay after preoperative evaluation and discussion of possible complications and risks consented to a surgical procedure. After preoperative evaluation and discussion of possible risks and possible complications, she wished to proceed with surgical procedure. HOSPITAL COURSE: Amairani had her surgery on 12/14/2020. She had no operative complications. On postop day 1, she was ambulating, and her diet was advanced to a regular diet. Oral intake and output adequate. She was changed to oral pain medication from a RIDE MECHANIC using her IS and she was able to be discharged to home on 12/16/2020. PHYSICAL EXAMINATION: GENERAL: Amairani Kay is a pleasant 35-year-old female. VITAL SIGNS: Height is 5 feet 3 inches, weight is 244 pounds, BMI 43. TPR 97.8, 78, 16, blood pressure 107/62. HEENT: Negative. NECK: Supple. HEART: Regular rate and rhythm. LUNGS: Clear. ABDOMEN: Midline stapled incision healing well. Left inguinal stapled incision is healing well. Adeola intact. There is no redness or drainage. HOME MEDICATIONS: Oxycodone 5 mg q.6 hours p.r.n. pain. She is to resume her home medication, Robaxin 2 mg p.o. q.8 hours, Phenergan 25 mg p.o. q.6 hours p.r.n. nausea, multivitamin 2 tablets daily, loratadine 10 mg oral daily p.r.n., latanoprost 0.005% ophthalmic solution 1 drop in each eye once daily, Flonase 2 sprays in each nostril p.r.n., vitamin D2, 50,000 international units Thursday, Thursday, Thursday, Proventil inhaler 3 mL every 4 hours p.r.n. asthma symptoms, and ProAir inhaler 2 puffs inhalation every 4 hours p.r.n. wheezing. FOLLOWUP APPOINTMENT: With Ricky Beckham MD, at [facility] 12/26/2020 at 8:30 a.m. DIET: Usual diet as tolerated. Drink 8 to 10 glasses of water a day. ACTIVITY: No lifting greater than 10 pounds for 6 weeks. Other activity: Walk at least 6 times inside your home. Driving: Do not drive for 1 week or within 8 hours of taking oxycodone. Shower/bathing: May shower. DISCHARGE INSTRUCTIONS: 1. Keep operative site clean and dry. Wear abdominal binder with pressure dressing, a rolled gauze over abdominal hernia site until 1st postop appointment. 2. Take off Aquacel dressing on 12/19/2020. Notify provider if any fever, increased pain, swelling, redness, drainage, nausea, vomiting. Other instruction: Use incentive spirometer 10 times every hour while awake for 1 week. /[id number]
--- NOTE | 2020-12-17 07:11 | PN ---
DATE OF SERVICE: 12/15/2020 SUBJECTIVE: Amairani is postoperative day 1. Her pain has been controlled with the UNIVERSITY LIBRARIAN. She has been up ambulating several times using her incentive spirometer. Vital signs have been stable. She has no questions or concerns this morning. OBJECTIVE: GENERAL: Amairani Kay is a pleasant 35-year-old female, alert and orientated. VITAL SIGNS: TPR 97.8, 72, 16, and blood pressure is 130/79. HEENT: Negative. NECK: Supple. HEART: Regular rate and rhythm. LUNGS: Clear. ABDOMEN: Dressings are dry and intact. Abdominal binder is on. EXTREMITIES: Without peripheral edema. ASSESSMENT: 1. Open repair of recurrent incarcerated incisional hernia with mesh (mesh plug). 2. Left inguinal exploration;. a. Repair of recurrent left inguinal hernia mesh plug. b. Division of left ilioinguinal nerve. 3. Date if surgical procedure 12/14/2020. Surgeon: Ricky Beckham MD. PLAN: 1. Decrease IV to 100 mL per hour. 2. Saline lock if oral intake adequate. 3. Oxycodone 5 mg q.6 hours p.r.n. pain. 4. Acetaminophen 650 mg oral, scheduled every 6 hours. 5. Atarax 25 mg 1 q.4 hours p.r.n. in addition to pain. 6. Colace 100 mg p.o. b.i.d. scheduled. 7. Dulcolax tablets 10 mg b.i.d. p.o. 8. Discontinue UNIVERSITY LIBRARIAN. 9. Discontinue UNIVERSITY LIBRARIAN and continuous pulse ox. 10.Continue ambulation and use of incentive spirometer. 11.May shower leaving on [employer]. 12.The patient would like to be discharged in a.. Mary Marshall PA-C /[id number]
--- NOTE | 2020-12-23 09:52 | OR ---
DATE OF PROCEDURE: 12/14/2020 SURGEON: Ricky Beckham MD PREOPERATIVE DIAGNOSES: 1. Recurrent incisional hernia. 2. Recurrent left inguinal hernia. POSTOPERATIVE DIAGNOSES: 1. Recurrent incarcerated incisional hernia. 2. Recurrent incarcerated left inguinal hernia (direct) with a branch of ilioinguinal nerve entraped in scar from previous repair. OPERATIVE PROCEDURE: 1. Open repair of recurrent incarcerated incisional hernia with mesh (13485, [id number]). 2. Left inguinal exploration with: a. Repair of recurrent left inguinal hernia with mesh plug technique (53137). b. Division and excision of branch of left ilioinguinal nerve (57626). ANESTHESIA: General. CREATIVE DIRECTOR: Mary Marshall PA-C INDICATIONS FOR PROCEDURE: The patient presents with 2 recurrent hernias, one is located in the lower midline area and the second in the left inguinal area. Plan is to proceed with repair of both of these most likely with mesh technique. Potential risks including bleeding, infection, injury to underlying viscera, and problems with the hernia recurring or mesh becoming infected were all reviewed, and the patient wishes to proceed. DETAILS OF PROCEDURE: The patient was taken to the operating room and placed in a supine position. After general endotracheal anesthesia was induced, the abdomen was prepped and draped. Using ultrasound guidance, bilateral transverse abdominis plane blocks were then placed. Initially, the midline incision located in the infraumbilical area was reused and carried down through the skin and subcutaneous tissue. The hernia sac which contained some incarcerated preperitoneal fat was then encountered. This was a fairly small defect, and after dissection and excision of the preperitoneal fat, the medium mesh plug was then placed into that defect and affixed circumferentially with series of 0 Vicryl sutures placed in horizontal mattress fashion. Once these were completed, the area was anesthetized with 1% lidocaine at the fascial level and irrigated with antibiotic-containing saline solution. The primary fascial closure overlying this with 0 Vicryl suture was accomplished in a transverse orientation. The subcutaneous tissue was approximated with 2 layers of 3-0 and 4- 0 Vicryl stitch deep and the skin with myla. Attention was taken to the left inguinal area. Previous left inguinal incision was made, carried down through the skin and subcutaneous tissue and through the external oblique aponeurosis. The patient was noted to have a direct recurrence in the medial floor of the inguinal area, which contained some transversalis fascia and preperitoneal fat. The transversalis fascia was incised and dissection underneath the conjoint tendon down to Rashid's ligament was then accomplished. Medium plug was also used in this case and affixed to Rashid's ligament with some 0 Vicryl stitch and then the underside of the conjoint tendon medially, superiorly, and laterally with horizontal mattress sutures of 0 Vicryl stitch as well. During the course of dissection what appeared to be a branch of the ilioinguinal nerve entered the area of previous scar, and this was divided and a portion of it excised to the lateral aspect of the incision over the repair. Then, the external oblique aponeurosis was approximated with some 3-0 Vicryl stitch as was the Artie's fascia, and the skin closed with myla. This wound also at that point had been anesthetized with 1% lidocaine mixed with Marcaine, and the patient taken to the recovery room in satisfactory condition. Physician library assistant, Mary Marshall PA-C, played an essential role in assisting in this case, helping to position the patient, and retract structures as needed as well as suturing and cutting sutures and stapling when indicated. Her presence improved patient's safety and decreased operative time. Ricky Beckham MD /[id number]
== END 2020-12-16 09:27 | disposition home or self-care (01) | DRG 351 ==
LOC: JP.SDSSCHI 07:48 → JP.SDS 07:48 → EDSTATUS 10:25 → JP.MS 11:50
PROVIDERS: ADMIT Surgery; ATTEND Surgery
PROC: 01BB0ZZ Excision of Lumbar Nerve, Open Approach (ICD-10-PCS; principal; 2020-12-14)
PROC: 0WUF0JZ Supplement Abdominal Wall with Synthetic Substitute, Open Approach (ICD-10-PCS; principal; 2020-12-14)
PROC: 0YU60JZ Supplement Left Inguinal Region with Synthetic Substitute, Open Approach (ICD-10-PCS; principal; 2020-12-14)
DX: K40.30 Unilateral inguinal hernia, with obstruction, without gangrene, not specified as recurrent (principal); K43.0 Incisional hernia with obstruction, without gangrene; Z68.41 Body mass index [BMI] 40.0-44.9, adult; J45.909 Unspecified asthma, uncomplicated; E66.01 Morbid (severe) obesity due to excess calories; G43.909 Migraine, unspecified, not intractable, without status migrainosus; F41.9 Anxiety disorder, unspecified; F32.9 Major depressive disorder, single episode, unspecified; H55.00 Unspecified nystagmus; G57.82 Other specified mononeuropathies of left lower limb
CPT/HCPCS: 36415; 80053; 81025; 83735; 84100; 85027; 88302; 94640; 94762; A9270-GY; C1781; J0171; J0330; J0690; J1100; J1170; J2020; J2185; J2405; J2704; J2710; J2795; J3010; J3410; J3490; J7121; J7620-GY